=== PATIENT | female | born 1940 | race Caucasian/White ===

== ENCOUNTER 2017-02-23 18:43 | Inpatient (IN) ==
[2017-02-23 19:12] LABS: MANUAL DIFF NEEDED? NO
[2017-02-23 19:19] LABS: BASO% 0.4 % (0.0-0.8); EOS# 0.22 X1000 (0.0-0.7); EOS% 3.1 % (0.0-10.0); HEMATOCRIT 22.9 % (37.0-47.0); HEMOGLOBIN 6.9 g/dL (12.0-16.0); IMM GRAN# 0.06 X1000 (0.0-0.04); IMM GRAN% 0.8 % (0.0-0.5); LYMPH# 1.07 X1000 (1.2-3.4); MCH 25.4 PG (27-31); MCHC 30.1 g/dL (33-37); MCV 84.2 FL (81-99); MONO# 0.39 X1000 (0.11-0.59); MONO% 5.5 % (1.7-9.3); MPV 9.1 FL (7.4-10.4); NEUT% 75.2 % (42.2-75.2); PLT 334 X1000 (130-400); RBC 2.72 XMIL (4.2-5.4)
[2017-02-23 19:35] LABS: ALBUMIN 3.6 g/dL (3.5-5.0); CALCIUM 9.4 mg/dL (8.8-10.2); POTASSIUM 4.7 mmol/L (3.5-5.1); TOTAL BILIRUBIN 0.18 mg/dL (0.20-1.00); TOTAL PROTEIN 6.6 g/dL (6.3-8.3)
--- NOTE | 2017-02-23 21:39 | PROVIDER DOCUMENTATION ---
This chart was entered by Kat Canales Scribe, acting as scribe for Trevor Encarnacion PA. HPI-General Adult - General Chief Complaint: GI Bleed Stated Complaint: ANEMIA Time Seen by Provider: 02/23/17 21:10 Source: family Allergies/Adverse Reactions: Patient Allergies Allergy/AdvReac Type Severity Reaction Status Date / Time Penicillins Allergy RASH Verified 02/23/17 18:56 Sulfa (Sulfonamide Allergy RASH Verified 02/23/17 18:56 Antibiotics) Home Medications: Home Medication List Medication Instructions Recorded Confirmed Last Taken Type Alendronate [Fosamax] 1 tab PO DAILY 02/23/17 02/23/17 02/23/17 History Alendronate [Fosamax] 1 tab PO DAILY 02/23/17 02/23/17 02/23/17 History Cephalexin [Cephalexin] 1 tab PO DAILY 02/23/17 02/23/17 02/23/17 History Cetirizine HCl [Cetirizine HCl] 1 tab PO DAILY 02/23/17 02/23/17 02/23/17 History Dexlansoprazole [Dexilant] 1 tab PO DAILY 02/23/17 02/23/17 02/23/17 History Diclofenac Sodium 1 applic ORDERED PRN PRN 02/23/17 02/23/17 02/23/17 History Dronedarone HCl [Multaq] 1 tab PO DAILY 02/23/17 02/23/17 02/23/17 History Furosemide [Furosemide] 1 tab PO DAILY 02/23/17 02/23/17 02/23/17 History Furosemide [Furosemide] 1 tab PO DAILY 02/23/17 02/23/17 02/23/17 History Glimepiride [Glimepiride] 1 tab PO DAILY 02/23/17 02/23/17 02/23/17 History Insulin Glargine [Lantus] 45 units SQ DAILY 02/23/17 02/23/17 02/23/17 History Ondansetron Odt [Zofran Odt] 1 tab PO PRN PRN 02/23/17 02/23/17 02/23/17 History Sitagliptin [Januvia] 1 tab PO DAILY 02/23/17 02/23/17 02/23/17 History Valsartan [Valsartan] 1 tab PO DAILY 02/23/17 02/23/17 02/23/17 History - History of Present Illness -Gen Adult Nature of Presenting Problems: Family states that pt was seen by PCP today and sent to have labs and imaging done. Pt was called at home and told to come to the ED due to blood being low. Pt states that she had some blood in stool 2 weeks ago but it resolved and has not noticed any since. Pt does have a history of a stomach ulcer years ago. Pt denies pain, bleeding, nausea, and vomiting. Is on two anticoagulants Location of Pain/Injury: reports: none Pain Radiation: reports: no radiation Quality of Pain: reports: none Severity: reports: mild Onset/Duration: reports: this afternoon Timing: reports: still present Context/Activities at Onset: reports: none Modifying Factors: improves with: nothing Associated Symptoms: reports: denies symptoms Similar Symptoms Previously?: No Recently seen or treated by another doctor?: Yes (Saw PCM today) Review of Systems - Adult - REVIEW OF SYSTEMS - ADULT Constitutional: denies: chills, fever Eyes: reports: no symptoms reported Ears, Nose, Mouth & Throat: reports: no symptoms reported Cardiovascular: reports: no symptoms reported Respiratory: denies: cough, shortness of breath Gastrointestinal: denies: abdominal pain, nausea, rectal bleeding, vomiting Genitourinary: denies: dysuria, hematuria Musculoskeletal: denies: muscle aches, muscle weakness Integumentary: denies: skin sores/ulcer, skin thickening Neurological: reports: no symptoms reported Psychiatric: reports: no symptoms reported Endocrine: reports: no symptoms reported Hematologic/Lymphatic: reports: no symptoms reported Allergic/Immunologic: reports: no symptoms reported All Other Systems: Reviewed and Negative Past History - Adult - PAST MEDICAL HISTORY-ADULT Review of Records: reports: Nursing Assessment Review, Medications Reviewed Major Childhood Illnesses: reports: denies history Gastrointestinal: reports: ulcer - IMMUNIZATION STATUS Childhood Immunizations: See Nurse Assessment Flu Vaccine: See Nurse Assessment Physical Exam-General - PHYSICAL EXAM-ADULT Initial Vital Signs Reviewed: Yes - CONSTITUTIONAL General Appearance: appears well, alert, no apparent distress, obese - EYES Eyes: PERRL/EOMI, pale conjunctivae - HEAD, EARS, NOSE, MOUTH & THROAT HENMT: normocephalic/atraumatic, moist mucous membranes - NECK Neck: full range of motion, supple, normal inspection - RESPIRATORY Respiratory: chest non-tender, lungs clear, normal breath sounds. negative: crackles, rales, rhonchi, stridor, wheezing - CARDIOVASCULAR Cardiovascular: normal peripheral pulses, regular rate, rhythm, no edema, no gallop, no JVD, no murmur, tachycardia - GASTROINTESTINAL (ABDOMEN) Abdominal Exam: normal bowel sounds, non tender, soft. negative: distended, guarding, rigid, rebound, tenderness - MUSCULOSKELETAL Back Exam: no CVA tenderness Extremity: no pedal edema Peripheral Pulses: radial (R): 2+, radial (L): 2+, dorsalis-pedis (R): 2+, dorsalis-pedis (L): 2+ - SKIN Integumentary: normal color, normal turgor, warm/dry - NEUROLOGIC Neurologic: motion graphics designer II-XII nml as tested, grossly normal - PSYCHIATRIC Psych/Mental Status: normal mood/affect, normal thought content, normal thought process, oriented x 3 Progress - PLAN OF CARE/RESULTS Progress/Plan/Lab Results: Vital Signs - 8 hr 02/23/17 18:54 Temperature 99.2 F Pulse Rate 101 H Respiratory Rate 18 Blood Pressure 182/65 O2 Sat by Pulse Oximetry 97 Laboratory Results - last 24 hr 02/23/17 02/23/17 02/23/17 19:05 19:05 19:05 WBC 7.13 RBC 2.72 L Hgb 6.9 L Hct 22.9 L MCV 84.2 MCH 25.4 L MCHC 30.1 L RDW Std Deviation 14.2 Plt Count 334 MPV 9.1 Immature Gran % (Auto) 0.8 H Neut % (Auto) 75.2 Lymph % (Auto) 15.0 L [place] % (Auto) 5.5 Eos % (Auto) 3.1 Baso % (Auto) 0.4 Immature Gran # (Auto) 0.06 H Neut # (Auto) 5.36 Lymph # (Auto) 1.07 L [place] # (Auto) 0.39 Eos # (Auto) 0.22 Baso # (Auto) 0.03 Sodium 139 Potassium 4.7 Chloride 101 Carbon Dioxide 25 Anion Gap 13 BUN 15 Creatinine 1.6 H Estimated GFR/1.73 m2 31 BUN/Creatinine Ratio 9 Glucose 163 H Calculated Osmolality 282 Calcium 9.4 Total Bilirubin 0.18 L AST 13 ALT 10 Alkaline Phosphatase 52 Total Protein 6.6 Albumin 3.6 Globulin 3.0 Albumin/Globulin Ratio 1.2 Blood Type O NEGATIVE Antibody Screen NEGATIVE Orders Category Date Time Status CBC WITH DIFF [HEME] Stat Lab 02/23/17 19:05 Completed COMPREHENSIVE METABOLIC PANEL [CHEM] Stat Lab 02/23/17 19:05 Completed OCCULT BLOOD SCREENING [STOOL] Stat Lab 02/23/17 21:27 Ordered TYPE & SCREEN [BBK] Stat Lab 02/23/17 19:05 Completed Result Diagrams: 02/24/17 09:10 02/24/17 03:13 - REASSESSMENT Reassessment #1 Time Reassessed: 23:10 (Discussed with Dr. Kendall, pt has + occult blood, anemia. Tranfused 1 unit in ED, recommends admission. Pt is asxs at this time, states she feels fine. Hasn't noticed any blood in stool in the last two weeks, no excessive bruising. ) - CONSULTS/PCP/HOSPITALIST Notification #1 *Consult/PCP/Hospitalist*: Dr. Garrido, Hospitalist Time Discussed: 00:04 (Will come see pt in the ED. ) Consult Disposition: Will see in ED, Admit Departure - Departure Date of Disposition Decision: 02/24/17 Time of Disposition Decision: 00:04 DIAGNOSIS: Occult blood positive stool Anemia Qualifiers: Anemia type: unspecified type Qualified Code(s): D64.9 - Anemia, unspecified Disposition: ADMITTED INPATIENT 09 Certified Medical Emergency: Emergent Condition: Stable - Critical Care Note This patient required my direct & personal management of CC.: No Attestation - Physician/ ARMANDO Attestation Patient care was provided by Advanced Practice Provider:: Yes Advanced Practice Provider:: Trevor Encarnacion Advanced Practice Provider documentation review:: The Mid-level provider documentation, treatment plan and medical decision making was reviewed by the physician who agrees with all treatment and medical decision making by the MLP. This chart was documented by the indicated scribe, (Kat Canales Scribe) and accurately reflects the services I performed and decisions made by me, Trevor Encarnacion PA, as attested by the provider's signature.
[2017-02-23 22:29] LABS: IRON SATURATION 7 %; TIBC 483 ug/dL; TOTAL IRON 33 ug/dL (49-151); UNBOUND IRON 450 ug/dL (112-346)
--- NOTE | 2017-02-23 22:35 | Diag Imaging Result Doc PS360 ---
EXAM: ABDOMEN/PELVIS W/O CONTRAST HISTORY: Low H/H, hx GI bleed FINDINGS: There is a small right-sided pleural effusion measuring 2.1 cm posteriorly and inferiorly in the midline. There is a calcified granuloma in the left lower lobe. The gallbladder is contracted. No calcified gallstone. Normal noncontrasted liver and spleen. There is a small duodenal diverticulum. Normal spleen and adrenal glands. No renal stones. No hydronephrosis. No aortic aneurysm. Moderate atherosclerosis. No bowel obstruction. Normal appendix. No abscess. There are scattered diverticula in the sigmoid colon. The uterus is been removed. Urinary bladder is distended and appears normal. There is a fat filled left inguinal hernia. IMPRESSION: 1.Duodenal diverticulum 2.Diverticulosis 3.Hysterectomy 4.Fat filled left inguinal hernia 5.Small right-sided pleural effusion Electronically signed by Clinton Calvillo 02/23/2017 10:32 PM
[2017-02-24] MEDS ORDERED: NS 500 ML ONE (00:08)
--- NOTE | 2017-02-24 01:26 | HISTORY AND PHYSICAL ---
CHIEF COMPLAINT: Patient sent by her primary care for generalized weakness. HISTORY OF PRESENT ILLNESS: This is a 77-year-old female, with a past medical history of atrial fibrillation on anticoagulation, diabetes, and hyperlipidemia, who was sent by her primary care physician because of generalized weakness. According to the patient, 2-3 weeks ago, she noticed rectal bleeding that lasted for approximately 2-3 days. She did not seek any medical attention for personal reasons. Today, she went to see her primary care, and she reported that she was feeling very weak, with generalized lethargy. She denies any vomiting blood, or black stools. Here upon ER evaluation, she was found to have a hemoglobin 6.9, with creatinine 1.6, so we were called in for admission. PAST MEDICAL HISTORY: 1. Atrial fibrillation. On Pradaxa. 2. Diabetes mellitus type 2. 3. Hypercholesterolemia. 4. Gastric ulcers many years ago. PAST SURGICAL HISTORY: Hysterectomy. ALLERGIES: Patient is allergic to penicillin and sulfa. REVIEW OF SYSTEMS: Eleven systems were reviewed, and all symptoms are related to H P. FAMILY HISTORY: Noncontributory. PHYSICAL EXAMINATION: VITAL SIGNS: Temperature 99.2 degrees, heart rate 90, respiratory rate 18, blood pressure 144/66. Oxygen saturation 92% on 2 L nasal cannula. GENERAL: This is a 77-year-old female lying in bed, in no acute distress. HEENT: Head is normocephalic, atraumatic. Anicteric sclerae and pale conjunctivae. Mucous membranes moist. NECK: Supple. No JVD noted. No carotid bruits. No lymphadenopathy. No thyromegaly. CARDIOVASCULAR: S1, S2 heard. Irregularly irregular. No murmurs, gallops, or rubs. RESPIRATORY: Clear bilaterally to auscultation. No work of breathing or using accessory muscles. ABDOMEN: Soft, nontender to palpation. Bowel sounds present. No organomegaly. EXTREMITIES: No clubbing, cyanosis, or edema. Peripheral pulses present in both legs. NEUROLOGIC: The patient is alert, able to move her extremities. Cranial nerves 2-12 grossly normal. LABORATORY DATA: Hemoglobin 6.9, with creatinine 1.6, iron 33, glucose 163. ASSESSMENT AND PLAN: 1. Anemia, multifactorial, blood loss and iron deficiency anemia. 2. Chronic atrial fibrillation, on anticoagulation. 3. Diabetes mellitus type 2. 4. Acute kidney injury. 5. Hypercholesterolemia. PLAN: 1. The patient is going to be admitted to the hospital because of this episode of bleeding. I think this low hemoglobin comes from the last time that this patient had this rectal bleeding. In the ER, she is going to be transfused 2 units of blood. We are going to consult GI for further evaluation of the GI bleeding. 2. Also, the labs shows acute kidney injury, so we are going to start this patient on IV fluids as well. We will check a BMP and CBC daily. 3. For chronic atrial fibrillation, at this time of course, because of this bleeding, we are going to hold on both anticoagulants. Will consider to restart them after this bleeding has resolved completely. 4. For diabetes, we are going to continue basically with long-acting insulin and sliding scale insulin as well. 5. For cholesterol, we will continue home medications. cc: Anselmo Puente MD
[2017-02-24] MEDS: NS 1,000 ML IV SCH ×2 (02:52→13:30)
[2017-02-24] MEDS: PROTONIX IV SCH ×2 (02:52→15:05)
[2017-02-24 03:40] LABS: HEMOGLOBIN A1C 6.2 % (4.8-6.0)
[2017-02-24] MEDS: LANTUS SUBQ SCH (07:15)
[2017-02-24] MEDS ORDERED: TYLENOL PO PRN (07:30)
[2017-02-24 08:21] LABS: ALBUMIN 3.4 g/dL (3.5-5.0); CALCIUM 9.1 mg/dL (8.8-10.2); POTASSIUM 4.4 mmol/L (3.5-5.1); TOTAL BILIRUBIN 0.3 mg/dL (0.20-1.00); TOTAL PROTEIN 5.9 g/dL (6.3-8.3)
[2017-02-24] MEDS: DIOVAN PO SCH (08:30)
[2017-02-24] MEDS: MULTAQ PO SCH (08:30)
[2017-02-24] MEDS: LASIX PO SCH (08:30)
[2017-02-24] MEDS: JANUVIA PO SCH (08:40)
[2017-02-24 09:36] LABS: HEMATOCRIT 26.1 % (37.0-47.0); MCH 26.1 PG (27-31); MCHC 30.7 g/dL (33-37); MCV 85.3 FL (81-99); MPV 9.1 FL (7.4-10.4); RBC 3.06 XMIL (4.2-5.4)
[2017-02-24] MEDS: HUMULIN R SUBQ SCH ×2 (11:33→18:39)
[2017-02-24] MEDS ORDERED: GOLYTELY PO ONE (14:00)
[2017-02-24] MEDS: SODIUM CHLORIDE 0.9% INJ SCH (15:05)
--- NOTE | 2017-02-25 02:27 | CONSULTATION ---
DATE OF CONSULTATION: 02/24/2017 REFERRING PHYSICIAN: Alia Reyes M.D. PRIMARY CARE PROVIDER: Mariah Mcguire M.D. INDICATION FOR CONSULTATION: Rectal bleeding. HISTORY OF PRESENT ILLNESS: The patient is a 77-year-old white female, who presented to her primary care physician for evaluation of generalized weakness. The patient has a history of atrial fibrillation, is currently on Pradaxa therapy. According to her daughter , who is at the bedside, she has had intermittent rectal bleeding, with blood mixed in the stool for the last 3 weeks. In the past, she has had a bleeding ulcer, and a "twisted colon" that was evaluated by Dr. Mendoza in [place]. When she presented to Dr. Mcguire, she was found to have a hemoglobin of 6.9, with a creatinine of 1.7. She was sent to the emergency room here at [facility] for further evaluation. We are asked to participate in her care. PAST MEDICAL HISTORY: 1. Atrial fibrillation, currently on Pradaxa. 2. Diabetes mellitus 2. 3. Hyperlipidemia. 4. History of gastric ulcers more than 20 years ago. 5. Creatinine 1.6 on admission. 6. Iron deficiency anemia on admission. PAST SURGICAL HISTORY: Hysterectomy. MEDICATION ALLERGIES: 1. Penicillin. 2. Sulfa. HOME MEDICATIONS: 1. Pradaxa, with the last dose taken 02/23/2017. 2. Cetirizine. 3. Fosamax. 4. Dexilant. 5. Diclofenac. 6. Januvia. 7. Glimepiride. 8. Lasix. 9. Losartan. 10. Zofran. 11. Lantus. 12. Multaq. 13. Cephalexin. REVIEW OF SYSTEMS: Remarkable for left lower quadrant pain that has improved since admission. She denies nausea with vomiting at this time. However, she had mild nausea at home, but no vomiting or melena. FAMILY HISTORY: Noncontributory, in light of the acute bleeding. PHYSICAL EXAMINATION: General: On exam, she is in no acute distress. Vital Signs: Her blood pressure is 149/59, pulse of 88, respirations 17, temperature of 98.6 degrees. HEENT: Unremarkable, except for pale mucosa. Pulmonary: Lungs are clear to auscultation, with normal expiratory effort. Cardiovascular: Reveals an irregularly irregular rhythm, with no gallops or rubs. Abdominal: Reveals normoactive bowel sounds. The abdomen is soft and nontender, with no rebound or guarding. She has mild central adiposity. Extremities: Bilaterally are negative for cyanosis, clubbing, or edema. Neurologic: She is alert and oriented x3, with appropriate mood, affect, and memory. OBJECTIVE DATA: Remarkable for hemoglobin of 6.9, with hematocrit of 22.9, and a white count of 7.13 on admission. She had 334,000 platelets. Post transfusion, her hemoglobin is 8.0, with hematocrit of 26.1, and a white count of 6.02, and 285,000 platelets. Today, her sodium is 141, potassium 4.4, chloride 104, CO2 of 25, BUN 13, creatinine 1.3, with a glucose of 61. Calcium is 9.1, total bilirubin 0.3, AST 14, ALT 8, alkaline phosphatase 43, total protein 5.9, and albumin 3.4. Her iron is 33, with a ferritin of 21. IMPRESSION: 1. Gastrointestinal bleed, most likely colonic in origin. However, she does have a history of peptic ulcer disease. 2. Iron deficiency anemia. 3. History of a "twisted colon." RECOMMENDATION: 1. I agree with holding the patient's anticoagulation while she is an inpatient. 2. I agree with Protonix 40 mg IV q.12 hours. 3. I will plan to perform an EGD and colonoscopy approximately 48 hours to 72 hours after her last dose. We will place the patient on the schedule for an EGD and colonoscopy. For Wednesday, in the absence of active bleeding. This will allow her Pradaxa to dissipate from her system, and improve the safety of her procedure. Please add SCD's to reduce her DVT risks. 4. Consent was discussed with the patient and her daughter who is at bedside. Questions were answered. They agree to proceed with the endoscopy. 5. Additional recommendations to follow based on her clinical course. cc: MD Alia Patton MD Faye Wilson, MD MTDD
[2017-02-25] MEDS: HUMULIN R SUBQ SCH ×4 (04:40→18:25)
[2017-02-25] MEDS: PROTONIX IV SCH ×2 (04:41→18:52)
[2017-02-25 07:03] LABS: MANUAL DIFF NEEDED? NO
[2017-02-25 07:15] LABS: BASO% 0.5 % (0.0-0.8); EOS# 0.27 X1000 (0.0-0.7); EOS% 4.7 % (0.0-10.0); HEMATOCRIT 26.8 % (37.0-47.0); HEMOGLOBIN 8.1 g/dL (12.0-16.0); IMM GRAN# 0.04 X1000 (0.0-0.04); IMM GRAN% 0.7 % (0.0-0.5); LYMPH# 0.77 X1000 (1.2-3.4); LYMPH% 13.3 % (20.5-51.1); MCH 25.2 PG (27-31); MCHC 30.2 g/dL (33-37); MCV 83.2 FL (81-99); MONO# 0.39 X1000 (0.11-0.59); MONO% 6.8 % (1.7-9.3); MPV 9.6 FL (7.4-10.4); PLT 311 X1000 (130-400); RBC 3.22 XMIL (4.2-5.4)
[2017-02-25 07:41] LABS: CALCIUM 8.9 mg/dL (8.8-10.2); POTASSIUM 4.6 mmol/L (3.5-5.1)
[2017-02-25] MEDS ORDERED: INSULIN PEN NEEDLES ONE (08:27)
[2017-02-25] MEDS: LASIX PO SCH (09:22)
[2017-02-25] MEDS: DIOVAN PO SCH (09:22)
[2017-02-25] MEDS: JANUVIA PO SCH (09:22)
[2017-02-25] MEDS: LANTUS SUBQ SCH (09:23)
[2017-02-25] MEDS: MULTAQ PO SCH (09:23)
--- NOTE | 2017-02-25 15:57 | PROGRESS NOTE ---
DATE: 02/25/2017 SUBJECTIVE: The patient is resting comfortably in bed. She was able to tolerate a liquid diet. She has no complaints. OBJECTIVE: Vital Signs: Temperature 98 degrees, blood pressure 150/65, heart rate 92, respirations 18, O2 saturation 95% on room air. General: This is an elderly female, lying in bed, in no acute distress. Head: Normocephalic, atraumatic. Heart: S1, S2. Normal. Regular rate and rhythm. Lungs: Clear to auscultation bilaterally. No wheezes, no rales. No rhonchi. Abdomen: Positive bowel sounds. Soft, nontender, nondistended. Extremities: No edema. No cyanosis. No calf tenderness. Neurologic: The patient is alert and oriented x3.. LABS: White blood cell count 5.7, hemoglobin 8.1, hematocrit 26, platelets 311,000. Sodium 141, potassium 4.6, chloride 104, CO2 22, BUN 17, creatinine 1.3. ASSESSMENT AND PLAN: 1. Gastrointestinal bleed. The patient is scheduled to undergo endoscopy tomorrow. We will follow up the results closely. 2. Anemia of acute blood loss. The patient's hemoglobin and hematocrit remain stable. Will transfuse p.r.n. 3. Atrial fibrillation. The patient is currently rate controlled. The Pradaxa is currently on hold due to the GI bleed. 4. Acute kidney injury. Improving. Continue on IV fluid hydration. 5. Morbid obesity. Aware. 6. Hypertension. Continue on the current antihypertensive regimen. 7. Diabetes mellitus type 2. We will cover the patient with sliding scale insulin. cc: Alia Reyes MD
[2017-02-25] MEDS ORDERED: GOLYTELY PO ONE (19:48)
--- NOTE | 2017-02-25 20:43 | PROGRESS NOTE ---
DATE: 02/25/2017 SUBJECTIVE: The patient is awaiting her bowel prep. Unfortunately, she did not receive her GoLYTELY last night as ordered. She reports bright red blood after defecation today. She is scheduled for an EGD colon tomorrow to determine the source of bleeding. Her GoLYTELY prep has been reordered. The family is at bedside and denies questions. cc: MD Alia Patton MD Faye Wilson, MD
[2017-02-25] MEDS: ZOFRAN IV PRN (22:24)
[2017-02-26] MEDS: HUMULIN R SUBQ SCH ×5 (00:38→20:07)
[2017-02-26] MEDS: NS 1,000 ML IV SCH ×5 (00:38→13:48)
[2017-02-26] MEDS: PROTONIX IV SCH ×2 (05:33→18:21)
[2017-02-26] MEDS: SODIUM CHLORIDE 0.9% INJ SCH ×2 (05:33→18:21)
[2017-02-26] MEDS ORDERED: MIRALAX PO ONE ×2 (06:35→06:45)
[2017-02-26] MEDS ORDERED: DULCOLAX PO ONE (06:35)
[2017-02-26 08:24] LABS: BASO% 0.1 % (0.0-0.8); EOS# 0.08 X1000 (0.0-0.7); EOS% 1.1 % (0.0-10.0); HEMATOCRIT 26.5 % (37.0-47.0); HEMOGLOBIN 8.1 g/dL (12.0-16.0); IMM GRAN# 0.04 X1000 (0.0-0.04); IMM GRAN% 0.5 % (0.0-0.5); LYMPH# 0.49 X1000 (1.2-3.4); LYMPH% 6.4 % (20.5-51.1); MANUAL DIFF NEEDED? YES; MCH 25.2 PG (27-31); MCHC 30.6 g/dL (33-37); MCV 82.6 FL (81-99); MONO# 0.33 X1000 (0.11-0.59); MONO% 4.3 % (1.7-9.3); MPV 9.5 FL (7.4-10.4); NEUT% 87.6 % (42.2-75.2); PLT 287 X1000 (130-400); RBC 3.21 XMIL (4.2-5.4)
[2017-02-26 08:36] LABS: ALBUMIN 3.4 g/dL (3.5-5.0); CALCIUM 8.8 mg/dL (8.8-10.2); POTASSIUM 4.1 mmol/L (3.5-5.1)
[2017-02-26 08:39] LABS: LYMPHS 6 % (21-51); MONO 8 % (1-9)
[2017-02-26] MEDS: ZOFRAN IV PRN (11:50)
[2017-02-26] MEDS: DIOVAN PO SCH (13:47)
[2017-02-26] MEDS: LASIX PO SCH (13:48)
[2017-02-26] MEDS: LANTUS SUBQ SCH (13:48)
[2017-02-26] MEDS: MULTAQ PO SCH (13:48)
[2017-02-26] MEDS: JANUVIA PO SCH (13:49)
--- NOTE | 2017-02-26 14:59 | PROGRESS NOTE ---
DATE: 02/26/2017 SUBJECTIVE: The patient is resting comfortably in bed. She did not tolerate the GoLYTELY prep overnight due to nausea. OBJECTIVE: Vital Signs: Temperature 98 degrees, blood pressure 140/59, heart rate 57, respirations 17, O2 saturations 100% on room air. General: This is an elderly female, lying in bed, in no acute distress. Head: Normocephalic, atraumatic. Heart: S1, S2. Normal. Regular rate and rhythm. Lungs: Clear to auscultation bilaterally. No wheezes, no rales. No rhonchi. Abdomen: Positive bowel sounds. Soft, nontender, nondistended. Extremities: No edema. No cyanosis. No calf tenderness. Neurologic: The patient is alert and oriented x3. LABORATORY DATA: White blood cell count 7.6, hemoglobin 8.1, hematocrit 26, platelets 287,000. Sodium 139, potassium 4.1, chloride 101, CO2 26, BUN 10, creatinine 1, glucose 182. ASSESSMENT AND PLAN: 1. Gastrointestinal bleed. Currently being prepped to undergo endoscopy. The hemoglobin and hematocrit remain stable. 2. Anemia of acute blood loss. Stable. 3. Atrial fibrillation. Rate controlled. Continue to monitor off of Pradaxa. 4. Morbid obesity. Aware. 5. Hypertension. Controlled. 6. Acute kidney injury. Improved. 7. Diabetes mellitus type 2. Continue on sliding scale insulin. cc: Alia Reyes MD MTDD
[2017-02-26] MEDS ORDERED: DIPRIVAN 1% ONE (16:57)
[2017-02-26] MEDS ORDERED: XYLOCAINE-MPF 2% ONE (17:06)
[2017-02-26] MEDS ORDERED: LR 1,000 ML ONE (17:06)
--- NOTE | 2017-02-26 22:42 | OPERATIVE NOTE ---
PROCEDURE DATE: 02/26/2017 REFERRING PHYSICIAN: Alia Reyes M.D. PRIMARY CARE PHYSICIAN: Mariah Mcguire M.D. INDICATION FOR PROCEDURE: 1. Iron deficiency anemia. 2. Peptic ulcer disease. 3. Rectal bleeding. PROCEDURE PERFORMED: Esophagogastroduodenoscopy. CONSENT: Informed consent was discussed with the patient and her daughter prior to the procedure. The risks, benefits, and alternatives were discussed. MEDICATION: The patient received monitored anesthesia care. PERFORMING PHYSICIAN: Adri Lozano M.D. ASSISTANTS: 1. ST. Mao 2. Svetlana Eid RN. 3. Nancy Brown CRNA. 4. Josesito Pemberton M.D. (anesthesia). COMPLICATIONS: There were no complications. ESTIMATED BLOOD LOSS: None. SPECIMENS REMOVED: None. FINDINGS: After sedation was achieved, the upper endoscope was inserted to the 2nd portion of the duodenum. The hypopharynx appeared endoscopically normal. The tubular esophagus was normal to the distal esophagus. There was a Schatzki ring at the GE junction which was measured at 40 cm from the incisors. There was no evidence of esophageal varices or Foreman esophagus. The lumen was patent and the scope passed easily into the hiatal hernia which spanned 40- 44 cm from the incisors. In the gastric lumen, there was mild erosive gastritis but no ulcers or masses seen. On retroflexed view, the fundus appeared grossly normal. On forward view, the pylorus was patent. There was mild duodenitis limited to the bulb. The second portion of the duodenum appeared grossly normal with no masses or bleeding lesions. After the exam was complete , the lumen was decompressed and the scope was removed without incident. IMPRESSION: 1. Schatzki ring, nonobstructive. 2. Hiatal hernia. 3. Mild erosive gastritis. 4. Mild duodenitis. 5. No source found to account for the anemia or the rectal bleeding. RECOMMENDATION: 1. Continue Protonix 40 mg IV q.12 hours. 2. Will proceed with a colonoscopy as previously scheduled. 3. Additional recommendations to follow based on the colonoscopy findings. cc: Alia Reyes MD MTDD
--- NOTE | 2017-02-26 22:48 | OPERATIVE NOTE ---
PROCEDURE DATE: 02/26/2017 REFERRING PHYSICIAN: Alia Reyes M.D. PRIMARY CARE PROVIDER: Mariah Mcguire M.D. INDICATION FOR PROCEDURE: 1. Rectal bleeding. 2. Iron deficiency anemia. PROCEDURE PERFORMED: Colonoscopy, incomplete. CONSENT: Informed consent was obtained from the patient prior to the procedure. The risks, benefits, and alternatives were discussed. MEDICATION: The patient received monitored anesthesia care. Informed consent was obtained from the patient and her daughter prior to the procedure. The risks, benefits, and alternatives were discussed. COMPLICATIONS: There were no complications. ESTIMATED BLOOD LOSS: None. SPECIMENS REMOVED: None. PREP QUALITY: Inadequate. CECAL INTUBATION TIME: Not achieved due to poor bowel prep. FINDINGS: After the EGD was performed, the patient was repositioned. The pediatric colonoscope was inserted to 35 cm. At 35 cm, there was thick fecal debris that obscured and obstructed the scope. After we were able to clean the scope, we visualized multiple sessile colon polyps between 5 and 10 mm between 35 cm and the rectum. There was also extensive diverticulosis. In the upper rectum, there were grade 3 internal hemorrhoids. On retroflexed view, there were large, inflamed external hemorrhoids with no active bleeding. The lumen was decompressed and the scope was removed without incident. IMPRESSION: 1. Incomplete exam secondary to poor bowel prep. 2. Multiple sessile colon polyps. 3. Diverticulosis. 4. Grade 3 internal hemorrhoids. 5. Large external hemorrhoids. RECOMMENDATION: 1. Will schedule the patient for a repeat colonoscopy after an extended bowel prep over the weekend. She had nausea and vomiting with GoLYTELY and MiraLAX. We will plan a 2 day senna prep. 2. She may consume clear liquids over the weekend. 3. Additional recommendations will follow based on her clinical course. cc: Mariah Mcguire MD [facility]
[2017-02-27] MEDS: NS 1,000 ML IV SCH (06:01)
[2017-02-27] MEDS: HUMULIN R SUBQ SCH ×4 (06:01→21:06)
[2017-02-27] MEDS: PROTONIX IV SCH ×2 (06:40→18:44)
[2017-02-27 07:39] LABS: MANUAL DIFF NEEDED? NO
[2017-02-27 07:48] LABS: BASO% 0.2 % (0.0-0.8); EOS# 0.18 X1000 (0.0-0.7); EOS% 3.4 % (0.0-10.0); HEMATOCRIT 24.9 % (37.0-47.0); HEMOGLOBIN 7.3 g/dL (12.0-16.0); IMM GRAN# 0.03 X1000 (0.0-0.04); IMM GRAN% 0.6 % (0.0-0.5); LYMPH# 0.76 X1000 (1.2-3.4); LYMPH% 14.3 % (20.5-51.1); MCH 24.5 PG (27-31); MCHC 29.3 g/dL (33-37); MCV 83.6 FL (81-99); MONO# 0.34 X1000 (0.11-0.59); MONO% 6.4 % (1.7-9.3); NEUT% 75.1 % (42.2-75.2); PLT 275 X1000 (130-400); RBC 2.98 XMIL (4.2-5.4)
[2017-02-27] MEDS: JANUVIA PO SCH (08:15)
[2017-02-27] MEDS: PERICOLACE PO SCH ×2 (08:15→21:06)
[2017-02-27] MEDS: LASIX PO SCH (08:17)
[2017-02-27] MEDS: LANTUS SUBQ SCH (08:17)
[2017-02-27] MEDS: MULTAQ PO SCH (08:17)
[2017-02-27] MEDS: DULCOLAX PO SCH (08:17)
[2017-02-27] MEDS: DIOVAN PO SCH (08:17)
[2017-02-27 08:19] LABS: ALBUMIN 3.1 g/dL (3.5-5.0); CALCIUM 8.6 mg/dL (8.8-10.2); POTASSIUM 3.9 mmol/L (3.5-5.1)
[2017-02-27] MEDS: NEUTRA-PHOS PO SCH ×2 (11:41→21:06)
--- NOTE | 2017-02-27 16:21 | PROGRESS NOTE ---
DATE: 02/27/2017 SUBJECTIVE: The patient is resting comfortably in bed. She is currently undergoing a bowel prep in anticipation of endoscopy. OBJECTIVE: Vital Signs: Temperature 98.5 degrees, blood pressure 177/65, heart rate 80, respirations 18, O2 saturation 94% on 2L nasal cannula. General: This is an elderly female, resting comfortably in bed in no acute distress. HEENT: Head normocephalic, atraumatic. Heart: S1 and S2 normal. Regular rate and rhythm. Lungs: Clear to auscultation bilaterally. No wheezing. No rales. No rhonchi. Abdomen: Positive bowel sounds. Soft, obese, nontender, nondistended. Extremities: No edema. No cyanosis. No calf tenderness. Neurologic: The patient is alert oriented x3. LABORATORY: White blood cell count 5.3, hemoglobin 7.3, hematocrit 25, platelets 275,000. Sodium 142, potassium 3.9, chloride 107, CO2 of 26, BUN 10, creatinine 1, glucose 122, phosphorus 2.4, albumin 3.1. ASSESSMENT AND PLAN: 1. Gastrointestinal bleed. The patient's colonoscopy was unable to be completed due to poor prep. The patient is currently undergoing a repeat bowel prep and then another endoscopy will be attempted once the patient has been cleaned out. Continue to monitor this closely. 2. Anemia of acute blood loss. The patient's hemoglobin and hematocrit dropped overnight. We will transfuse 1 unit of packed red blood cells today. 3. Multiple colonic polyps. Aware. 4. Extensive internal and external hemorrhoids. Aware. 5. Hypertension. Will add Coreg to the patient's antihypertensive therapy. 6. Diabetes mellitus, type 2. Continue on Lantus plus sliding scale insulin. 7. Gastrointestinal prophylaxis. Continue on IV Protonix. 8. Deep vein thrombosis prophylaxis. Continue with SCDs. cc: Alia Reyes MD
[2017-02-27] MEDS: SODIUM CHLORIDE 0.9% INJ SCH (18:44)
[2017-02-27] MEDS: COREG PO SCH (21:09)
[2017-02-28] MEDS: HUMULIN R SUBQ SCH ×5 (00:43→22:30)
[2017-02-28] MEDS: PROTONIX IV SCH ×2 (05:45→17:44)
[2017-02-28 06:58] LABS: HEMATOCRIT 27.6 % (37.0-47.0); HEMOGLOBIN 8.4 g/dL (12.0-16.0); MCH 25.9 PG (27-31); MCHC 30.4 g/dL (33-37); MCV 85.2 FL (81-99); MPV 9.9 FL (7.4-10.4); RBC 3.24 XMIL (4.2-5.4)
[2017-02-28 07:32] LABS: AGAP 11; ALBUMIN 3.1 g/dL (3.5-5.0); BUN 10 mg/dL (8-22); CALCIUM 8.6 mg/dL (8.8-10.2); CHLORIDE 105 mmol/L (98-107); COSMO 282; POTASSIUM 3.4 mmol/L (3.5-5.1); SODIUM 142 mmol/L (136-145); TCO2 26 mmol/L (25-35)
[2017-02-28] MEDS ORDERED: KLOR-CON PO ONE (07:47)
[2017-02-28] MEDS: LASIX PO SCH (10:01)
[2017-02-28] MEDS: DIOVAN PO SCH (10:01)
[2017-02-28] MEDS: JANUVIA PO SCH (10:01)
[2017-02-28] MEDS: NEUTRA-PHOS PO SCH ×3 (10:01→22:30)
[2017-02-28] MEDS: COREG PO SCH ×3 (10:02→22:29)
[2017-02-28] MEDS: MULTAQ PO SCH (10:02)
[2017-02-28] MEDS: DULCOLAX PO SCH (10:02)
[2017-02-28] MEDS: PERICOLACE PO SCH ×3 (10:02→22:29)
[2017-02-28] MEDS: LANTUS SUBQ SCH (10:06)
[2017-02-28] MEDS: ZOFRAN IV PRN ×3 (10:12→19:46)
[2017-02-28] MEDS ORDERED: XOPENEX NEB INH ONE (13:01)
[2017-02-28] MEDS ORDERED: NS NEB INH SCH (13:15)
[2017-02-28] MEDS ORDERED: CITRATE OF MAGNESIA PO ONE (13:56)
[2017-02-28] MEDS ORDERED: LINZESS PO ONE (17:21)
[2017-02-28] MEDS ORDERED: DULCOLAX PO ONE (17:21)
--- NOTE | 2017-02-28 17:32 | PROGRESS NOTE ---
DATE: 02/28/2017 SUBJECTIVE: The patient had some nausea overnight. She is still undergoing the prep for endoscopy. Her stool was still brown and not yet clear. OBJECTIVE: Vital Signs: Temperature 98.2 degrees, blood pressure 153/65, heart rate 78, respirations 20, O2 saturations 98% on room air. General: This is an elderly female, lying in bed, in no acute distress. Head: Normocephalic, atraumatic. Heart: S1, S2. Normal. Regular rate and rhythm. Lungs: Clear to auscultation bilaterally. No wheezes, no rales. No rhonchi. Abdomen: Positive bowel sounds. Soft, nontender, nondistended. Extremities: No edema. No cyanosis. No calf tenderness. Neurologic: The patient is alert and oriented x3. LABS: Hemoglobin 8.4, hematocrit 27, white count 6.6, platelets 237,000, potassium 3.4, chloride 142, BUN 10, creatinine 0.9, albumin 3.1. ASSESSMENT AND PLAN: 1. Gastrointestinal bleed. The patient is currently undergoing prep for a repeat colonoscopy. We will continue to monitor this closely. Gastroenterology is following. 2. Anemia of acute blood loss. The patient's hemoglobin and hematocrit are improved after receiving 1 unit of packed red blood cells yesterday. We will continue to monitor this closely and transfuse p.r.n. 3. Multiple colonic polyps. Aware. 4. Extensive internal and external hemorrhoids. Aware. 5. Hypertension. Continue on the current antihypertensive regimen. 6. Atrial fibrillation. The patient is currently rate controlled. The Pradaxa is currently on hold. 7. Diabetes mellitus type 2. Continue on Lantus plus sliding scale insulin. 8. Gastrointestinal prophylaxis. Continue on IV Protonix. 9. Deep vein thrombosis prophylaxis. Continue with sequential compression devices. cc: Alia Reyes MD
[2017-02-28] MEDS: SODIUM CHLORIDE 0.9% INJ SCH (17:44)
--- NOTE | 2017-02-28 17:49 | PROGRESS NOTE ---
DATE: 02/28/2017 SUBJECTIVE: The patient states that she feels okay. Despite the last 2-3 days of receiving laxatives, she continues to have brown stool. Thus far, she has received GoLYTELY, MiraLAX, Dulcolax, and senna. She notes mild nausea this afternoon but otherwise she is tolerating the multiple day bowel prep without difficulty. OBJECTIVE: Vital signs: On exam, her blood pressure is 153/65, pulse 78, respiration 20, temperature of 98.2 degrees. Our exam was deferred as the patient had to go to the restroom. OBJECTIVE DATA: Remarkable for hemoglobin of 8.4 with hematocrit 27.6 and white count of 6.63. She has 237,000 platelets. Sodium is 142, potassium 3.4, chloride 105, CO2 26, BUN 10, creatinine 0.9, with a glucose 103. Calcium is 8.6, phosphorus 3.0, and albumin 3.1. RECOMMENDATION: 1. Continue the bowel prep. 2. I will add magnesium citrate 1 bottle, Dulcolax 10 mg, Linzess 145 mcg p.o. x1 now. 3. We will schedule EGD and colonoscopy tomorrow. 4. She will most likely need an enema tonight and in the morning. 5. Additional recommendations to follow based on her endoscopic evaluation. cc: MD Mariah Patton MD Katherine Takundwa, MD
[2017-02-28] MEDS: DULCOLAX PR ONE ×2 (19:46→22:30)
[2017-03-01] MEDS: HUMULIN R SUBQ SCH ×4 (06:01→23:03)
[2017-03-01] MEDS: PROTONIX IV SCH ×2 (06:16→17:24)
[2017-03-01 06:58] LABS: HEMATOCRIT 27.6 % (37.0-47.0); HEMOGLOBIN 8.4 g/dL (12.0-16.0); MCH 25.2 PG (27-31); MCHC 30.4 g/dL (33-37); MCV 82.9 FL (81-99); RBC 3.33 XMIL (4.2-5.4)
[2017-03-01 07:28] LABS: ALBUMIN 3.1 g/dL (3.5-5.0); POTASSIUM 3.7 mmol/L (3.5-5.1)
[2017-03-01] MEDS: LANTUS SUBQ SCH (08:10)
[2017-03-01] MEDS: JANUVIA PO SCH (08:13)
[2017-03-01] MEDS: LASIX PO SCH (08:13)
[2017-03-01] MEDS: DIOVAN PO SCH (08:13)
[2017-03-01] MEDS: COREG PO SCH ×2 (08:13→22:07)
[2017-03-01] MEDS: MULTAQ PO SCH (08:28)
--- NOTE | 2017-03-01 12:23 | PROGRESS NOTE ---
DATE: 03/01/2017 SUBJECTIVE: No acute events noted overnight. The patient's stools remain liquid and brown. OBJECTIVE: Vital Signs: Temperature 98 degrees, blood pressure 150/57, heart rate 73, respirations 18, O2 saturations 95% on room air. General: This is an elderly female lying in bed in no acute distress. Head: Normocephalic, atraumatic. Heart: S1, S2. Normal. Abdomen: Positive bowel sounds. Soft, nontender, nondistended. Extremities: No edema. No cyanosis. No calf tenderness. Neurologic: The patient is alert and oriented x3. LABORATORY: White blood cell count 5.8, hemoglobin 8.4, hematocrit 27, platelets 249,000. Sodium 143, potassium 3.7, chloride 106, CO2 27, BUN 9, creatinine 1, glucose 84. ASSESSMENT AND PLAN: 1. Gastrointestinal bleed. The patient is still being prepped for a colonoscopy. Further management as per the residency program coordinator. 2. Anemia of acute blood loss. The patient's hemoglobin and hematocrit is stable. 3. Multiple colonic polyps. Aware. 4. Extensive internal and external hemorrhoids. Aware. 5. Atrial fibrillation. The patient is currently rate controlled. 6. Hypertension. Continue on the current antihypertensive regimen. 7. Diabetes mellitus type 2. Continue on Lantus plus sliding scale insulin. 8. Gastrointestinal prophylaxis. Continue on IV Protonix. 9. Deep vein thrombosis prophylaxis. Continue with Sequential Compression Devices. cc: Alia Reyes MD
[2017-03-01] MEDS ORDERED: DIPRIVAN 1% ONE (16:49)
[2017-03-01] MEDS: SODIUM CHLORIDE 0.9% INJ SCH (17:24)
[2017-03-01 17:58] LABS: MANUAL DIFF NEEDED? NO
[2017-03-01 18:03] LABS: BASO% 0.3 % (0.0-0.8); EOS# 0.45 X1000 (0.0-0.7); EOS% 7.3 % (0.0-10.0); HEMATOCRIT 28.7 % (37.0-47.0); HEMOGLOBIN 8.9 g/dL (12.0-16.0); IMM GRAN# 0.03 X1000 (0.0-0.04); IMM GRAN% 0.5 % (0.0-0.5); LYMPH# 0.79 X1000 (1.2-3.4); LYMPH% 12.8 % (20.5-51.1); MCH 25.4 PG (27-31); MONO# 0.33 X1000 (0.11-0.59); MONO% 5.4 % (1.7-9.3); MPV 9.7 FL (7.4-10.4); NEUT% 73.7 % (42.2-75.2); PLT 262 X1000 (130-400)
--- NOTE | 2017-03-02 05:39 | OPERATIVE NOTE ---
PROCEDURE DATE: 03/01/2017 REFERRING PHYSICIAN: Alia Reyes M.D. PRIMARY CARE PROVIDER: Mariah Mcguire M.D. INDICATION FOR PROCEDURE: 1. Colon polyps seen on previous colonoscopy attempt. 2. Rectal bleeding. 3. History of diverticulosis. PROCEDURE PERFORMED: 1. Colonoscopy with control of bleeding. 2. Colonoscopy with polypectomy. 3. Colonoscopy with biopsy and Pari ink tattoo placement. CONSENT: Informed consent was obtained from the patient prior to the procedure. The risks, benefits, and alternatives were discussed with the patient, her daughter, and her son. MEDICATIONS: The patient received monitored anesthesia care. PERFORMING PHYSICIAN: Adri Lozano M.D. ASSISTANTS: 1. ST. [facility] 2. Marilyn St RN. 3. Jose Vela CRNA. 4. Kash Burch M.D. (anesthesia). COMPLICATIONS: There were no complications. ESTIMATED BLOOD LOSS: 2-3 mL. SPECIMENS REMOVED: 1. Polyp at 40 cm. 2. Mass at 20 cm. CECAL INTUBATION TIME: 12 minutes. WITHDRAWAL TIME: 25 minutes. PREP QUALITY: Fair. (Please note this was a 4-day bowel prep.) FINDINGS: After sedation was achieved, the pediatric colonoscope was inserted to the cecum. The ileocecal valve and appendiceal orifice appeared endoscopically normal. In the cecum and in the proximal ascending colon, there were multiple AVMs that were actively oozing. Cautery with a black wire was required for hemostasis. There were multiple AVMs that were cauterized. There were multiple nonbleeding AVMs adjacent to those that required cautery. Upon withdrawal of the scope, the colonic mucosa appeared normal. However, she had extensive diverticulosis in the ascending, transverse, descending, and sigmoid colon. At 40 cm, there was a benign-appearing polyp that was approximately 6-8 mm in size that was removed by snare cautery. Upon further withdrawal, there was a mass at approximately 22 cm. It extended from 20-22 cm. It was necrotic with a central ulceration. The edges were irregular, and there was active bleeding at the time of visualization. Pari ink tattoo 0.5 mL x3 was placed on the proximal surface of the colon immediately prior to the mass. 0.5 mL was placed on the distal surface. Multiple biopsies were taken. The biopsy sites were cauterized using the black wire. Adjacent to and part of the large mass, were 2 sessile polyps that appeared to be tubulovillous adenomas based on the frondlike- appearance of the edges. No biopsies were taken. Upon further withdrawal, the upper rectum appeared endoscopically normal. On retroflexed view, there were large external hemorrhoids that were not bleeding. After the exam was complete, the lumen was decompressed and the scope was removed without incident. The patient tolerated the procedure well. IMPRESSION: 1. 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 2. Dias diverticulosis. 3. Benign-appearing sessile polyp at 40 cm, status post snare cautery. 4. A 2-3 cm mass at approximately 20 cm, extending to 22 cm,, with a central necrotic ulcer, status post biopsy. 5. Pari ink tattoo placement adjacent to the large sigmoid colon mass. 6. Multiple sessile colon polyps in the sigmoid colon that remain intact. 7. Large external hemorrhoids. RECOMMENDATION: 1. Await biopsy results. I spoke with Dr. Didier Clay, who will perform a butterfield evaluation on this specimen. 2. I will check a CT scan of the chest, abdomen, and pelvis to stage her for malignancy, as the lesion appears to be consistent with adenocarcinoma of the colon. 3. I will check a CEA level. 4. I spoke with Dr. Brad Olivarez from Surgery, who will see the patient in the morning. 5. I also discussed her care with Dr. Ananya Acuña, who will evaluate her tomorrow. 6. Because the patient had such difficulty with bowel prep, I would place the patient on a clear liquid diet, pending further evaluation. She will need surgical intervention soon. 7. Additional recommendations to follow based on her clinical course. cc: MD Alia Patton MD Faye Wilson, MD Heather Shah, MD Jason R. Seale, MD MTDD
[2017-03-02] MEDS: PROTONIX IV SCH ×2 (06:49→18:33)
[2017-03-02] MEDS: HUMULIN R SUBQ SCH ×4 (06:50→20:27)
[2017-03-02 07:16] LABS: HEMATOCRIT 28.3 % (37.0-47.0); HEMOGLOBIN 8.7 g/dL (12.0-16.0); MCH 25.7 PG (27-31); MCHC 30.7 g/dL (33-37); MCV 83.5 FL (81-99); MPV 10.2 FL (7.4-10.4); RBC 3.39 XMIL (4.2-5.4)
[2017-03-02 07:26] LABS: ALBUMIN 3.1 g/dL (3.5-5.0); CALCIUM 8.6 mg/dL (8.8-10.2); POTASSIUM 3.2 mmol/L (3.5-5.1)
--- NOTE | 2017-03-02 07:32 | Diag Imaging Result Doc PS360 ---
EXAM: THORAX/ABDOMEN/PELVIS - 03/01/2017 HISTORY: new sigmoid colon mass TECHNIQUE: With intravenous contrast. Dose reduction protocol. COMPARISON: Without contrast CT abdomen and pelvis of 02/23/2017 FINDINGS: There is a medium right pleural effusion. There is associated compressive atelectasis at the right lower lobe. There is no other consolidation identified. There is no pneumothorax seen. There is a left lower lobe calcified granuloma and there are calcified left hilar lymph nodes from old granulomatous disease. There are no other pulmonary nodular lesions identified. There are a few borderline noncalcified paratracheal and subcarinal mediastinal lymph nodes. There is a possible small filling defect at left lower lobe pulmonary artery, which may represent pulmonary embolus. There is mild cardiomegaly. There are no acute abnormalities of the liver, spleen, adrenal glands, or pancreas identified. The spleen is upper normal in size similar to the previous exam, and the pancreas is somewhat atrophic similar to the previous exam. There are no calcified gallstones seen. The bilateral kidneys enhance homogeneously. There is no hydronephrosis. There is a duodenal diverticulum adjacent to the posterior pancreatic head similar to the previous exam. There is no associated inflammation seen. There are nonspecific small retroperitoneal lymph nodes. There are no substantial enlarged lymph nodes identified. There is no evidence of bowel obstruction. There is colonic diverticulosis which is most extensive in the sigmoid colon, and the sigmoid colon is noted to be tortuous. There are mild inflammatory changes at the posterior pelvis. There is no substantial sigmoid wall thickening identified. There is a small amount of gas along the margins of the distal sigmoid colon which is possibly extraluminal. This could relate to microperforation. There is no abscess identified. There is no free intraperitoneal air identified. IMPRESSION: Medium right pleural effusion with adjacent compressive atelectasis at the right lower lobe. A few borderline mediastinal lymph nodes. No other evidence of metastatic disease to the thorax. Possible pulmonary embolus at left lower lobe. If further imaging evaluation is desired, dedicated CT pulmonary angiogram is recommended. Mild cardiomegaly. Sigmoid diverticulosis. Mild inflammatory changes at posterior pelvis. Possible small amount of extraluminal gas adjacent to distal sigmoid which could relate to microperforation. There is no discrete diverticulitis identified. There is no free intraperitoneal air or abscess identified. Nonspecific small retroperitoneal lymph nodes. No other evidence of metastatic disease in the abdomen or pelvis. The demolition crane operator radiologist provided primary results at 10:47 PM on 03/01/2017. Electronically signed by Nathaniel [employer] 03/02/2017 7:30 AM
[2017-03-02] MEDS ORDERED: KLOR-CON PO ONE (07:35)
[2017-03-02] MEDS ORDERED: HEPARIN 25,000 UNITS/D5W 25,000 UNIT/250 ML IV.SOLN IV SCH (08:15)
[2017-03-02] MEDS ORDERED: HEPARIN 25,000 UNIT in NS 250 ML IV SCH (09:00)
[2017-03-02 09:25] LABS: INR 1.03; PROTIME 10.8 Seconds (9.2-11.7)
[2017-03-02] MEDS: LASIX PO SCH (09:27)
[2017-03-02] MEDS: MULTAQ PO SCH (09:28)
[2017-03-02] MEDS: LANTUS SUBQ SCH (09:28)
[2017-03-02] MEDS: JANUVIA PO SCH (09:28)
[2017-03-02] MEDS: COREG PO SCH ×2 (09:28→20:26)
[2017-03-02] MEDS: DIOVAN PO SCH (09:28)
[2017-03-02 09:36] LABS: PTT HEPARIN PROTOCOL 27.4 Seconds
[2017-03-02 09:45] LABS: ALLEN TEST YES; BE 4.1 mmoll (-3.0-3.0); BLOOD TYPE ARTERIAL; DRAW SITE R RADIAL; O2(CT) 12.7 mL/dL (15.0-23.0); PCO2(98.6) 41 mmHg (35-45); PO2(98.6) 68 mmHg (60-100); SAMPLE BLOOD; SAO2 96.2 % (95.0-100.0); THB 9.6 g/dL (11.5-17.4); pH(98.6) 7.45 (7.35-7.45)
[2017-03-02 09:46] LABS: MODALITY CANNULA
--- NOTE | 2017-03-02 12:28 | Diag Imaging Result Doc PS360 ---
EXAM: LUNG SCAN / VQ INDICATION: pulmonary embolism TECHNIQUE: 40.7 mCi of aerosolized technetium 99 DTPA was administered for the ventilation portion of the scan. 5.2 mCi of IV technetium 99 MAA was administered for the perfusion portion of the scan. COMPARISON: None. FINDINGS: There is evidence of an elevated right hemidiaphragm, which can also be seen on the accompanying chest radiograph. There are perhaps a few matched nonsegmental small perfusion defects bilaterally. There are no definite segmental defects identified. IMPRESSION: Low probability of pulmonary embolism. Electronically signed by Luis Cedillo 03/02/2017 12:26 PM
--- NOTE | 2017-03-02 12:41 | Diag Imaging Result Doc PS360 ---
EXAM: CHEST-2 VIEWS INDICATION: V-Q FOLLOW UP TECHNIQUE: 2 views COMPARISON: None. FINDINGS: There is elevation of the right hemidiaphragm. There is suggestion of mild atelectasis at the right lung base. There is likely at least a small pleural effusion layering at the right lung base. Cardiac silhouette is mildly prominent. Central vasculature is unremarkable. IMPRESSION: 1.Suggestion of a small right pleural effusion with adjacent right basilar atelectasis. 2.Mild cardiomegaly. Electronically signed by Luis Cedillo 03/02/2017 12:38 PM
--- NOTE | 2017-03-02 16:36 | CONSULTATION ---
DATE OF CONSULTATION: 03/02/2017 REFERRING PHYSICIAN: Dr. Lozano. REASON FOR CONSULTATION: Colon mass. HISTORY OF PRESENT ILLNESS: This is a 77-year-old female, who was admitted almost a week ago for worsening generalized weakness, that had been developing over several weeks. She also had an episode several weeks ago with rectal bleeding for several days. She has occasional vague abdominal pain. No exacerbating or relieving factors. Some occasional nausea. Since admission, she was found to be significantly anemic on presentation. She has received 2 units of blood since admission and underwent colonoscopy yesterday. Dr. Lozano found a malignant-appearing mass at 20 cm in the distal colon, likely at the colorectal transition. It had an ulcerated area and some necrosis. There was also some bleeding at the time of the colonoscopy. She biopsied it and performed tattooing around the mass. There were other sessile polyps adjacent to the mass. A separate polyp at 40 cm, less than 1 cm in size was removed with snare polypectomy. She had a CT of her chest, abdomen and pelvis today for further workup and it shows a medium size right pleural effusion and some compressive atelectasis of the lower lobe on the right. A few borderline mediastinal lymph nodes. A possible pulmonary embolus on the left lower lobe. Sigmoid diverticulosis and mild inflammatory changes at the posterior pelvis with possible extraluminal gas adjacent to the distal sigmoid colon. There are nonspecific small retroperitoneal lymph nodes. No evidence of metastatic disease. A VQ scan today showed low probability of pulmonary embolus. PAST MEDICAL HISTORY: Atrial fibrillation, diabetes, hypercholesterolemia, history of peptic ulcer disease. PAST SURGICAL HISTORY: Hysterectomy. ALLERGIES: Penicillin and sulfa. FAMILY HISTORY: Reviewed and noncontributory. SOCIAL HISTORY: She denies tobacco, alcohol or illicit drug use. REVIEW OF SYSTEMS: Ten systems reviewed and negative except as noted above. PHYSICAL EXAMINATION: Vital Signs: Temperature 98.8, pulse 75, blood pressure 147/53. O2 saturation 94%. General: She is an elderly female who looks her stated age in no acute distress. HEENT: Normocephalic, atraumatic. Extraocular muscles intact. Pupils equal, round, reactive to light. Sclerae anicteric. Neck: Supple. No thyromegaly. CV: Irregularly irregular. Respiratory: No work of breathing. Gastrointestinal: Soft, nondistended, minimal tenderness throughout. No rebound or guarding. No hernias. She has a well-healed lower midline incision. Extremities: No clubbing or cyanosis. There is some mild edema. Skin: Warm and dry. No rash. Musculoskeletal: She moves all extremities equally, but weakly. LABORATORY: White blood cell count 6.4, hemoglobin 8.7, platelet count 262. Metabolic profile reviewed and unremarkable. A CEA level is 7.7. IMAGING: As described above in HPI. ASSESSMENT AND PLAN: A 77-year-old female with apparent new diagnosis of colon cancer. We are awaiting the biopsy results and I am tentatively planning open sigmoid colectomy tomorrow. I discussed the risks and benefits with her including bleeding, infection, anastomotic leak, incisional hernia, perioperative pulmonary or cardiovascular compromise and other imponderables. She understands and agrees to proceed. cc: Brad Olivarez MD
--- NOTE | 2017-03-02 18:11 | PROGRESS NOTE ---
DATE: 03/02/2017 SUBJECTIVE: This patient is lying on the bed comfortably. She does not have any complaints at this moment. Her abdomen is a little bit tender to palpation mostly at the level of the periumbilical area and epigastric area. She had a colonoscopy done yesterday that showed active bleeding AV malformation in the second and ascending colon status post cautery and diverticulitis, benign appearing sessile polyp at 40 cm status post snare cautery. A 2-3 cm mass at approximately 20 cm, extending to 22 cm with a central necrotic ulcer, status post biopsy at the level of the sigmoid colon, multiple sessile colon polyps in the sigmoid colon that remain intact and, large external hemorrhoids. OBJECTIVE: Vital Signs: Temperature 98.3 degrees, pulse 76, respiratory rate 18, blood pressure 142/51, O2 saturation 97 on 2 L of nasal cannula. HEENT: Head normocephalic. No trauma. PERRLA. Neck: Supple. No JVD. No masses. Central trachea. Chest: Clear to auscultation. No wheezing. No rales. Abdomen: Soft. Mild tenderness to palpation at the level of the epigastric area and periumbilical area. Mild distended. Positive bowel sounds. Extremities: No edema. No clubbing. No cyanosis. Neurological: The patient is alert, oriented x3. No focal deficits. LABORATORY: WBC 6.3, hemoglobin 8.7, hematocrit 28.3, platelets 262,000. Sodium 140, potassium 3.2, chloride 101, bicarbonate 27, BUN 7, creatinine 1, glucose 102, calcium 8.6. Albumin 3.1. ASSESSMENT AND PLAN: 1. Gastrointestinal bleed status post colonoscopy. AV malformation was found as well as a sigmoid mass. Surgery Department has been consulted. Probably this patient will have surgery tomorrow. They are planning to do a colectomy. 2. Sigmoid mass. Surgery on board as above. 3. Anemia of acute blood loss. Hemoglobin and hematocrit have been stable. 4. Multiple colonic polyps. Aware. 5. Extensive external hemorrhoids. Aware. 6. Afib currently rate controlled. 7. Hypertension. Blood pressure is stable. Continue the same management. 8. Diabetes mellitus type 2. Continue with the same management. Stable. 9. Gastrointestinal prophylaxis. Continue with Protonix. 10. DVT prophylaxis. Continue with SCDs. We have a CT scan result that showed the possibility of left lower lung pulmonary embolism. She was placed on heparin drip but this was already stopped because we did a CT scan that showed a low probability of pulmonary embolism. cc: Sanjeev Alfaro MD
--- NOTE | 2017-03-02 18:17 | CONSULTATION ---
DATE OF CONSULTATION: 03/02/2017 REQUESTING PHYSICIAN: Dr. Lozano. REASON FOR CONSULTATION: Colon mass, as well as left lower extremity PTE. HISTORY OF PRESENT ILLNESS: Ms. Burnett is a 77-year-old female, who initially presented to the emergency department complaining of generalized weakness. She also had some rectal bleeding. The patient was admitted for further evaluation and workup. She did undergo a colonoscopy, which revealed her to have a 2-3 cm mass, that has since been biopsied. Patient also had some bleeding AVMs that have been cauterized. The patient was also found to be anemic at presentation, with a hemoglobin of 6.9. We have been consulted, as she has a colon mass, as previously mentioned. The patient had a CT of chest, abdomen, and pelvis done yesterday, which showed the possibility of a left lower lobe pulmonary embolism. She is currently on a heparin drip. PAST MEDICAL HISTORY: 1. Atrial fibrillation. 2. Diabetes mellitus type 2. 3. High cholesterol. 4. Gastric ulcer several years ago. 5. Chronic low back pain. PAST SURGICAL HISTORY: 1. Hysterectomy. 2. Cataract surgery. SOCIAL HISTORY: The patient denies any alcohol, tobacco, or current drug use. REVIEW OF SYSTEMS: As per the HPI. All else is negative and noncontributory. FAMILY HISTORY: Positive for coronary artery disease, as well as hypertension and diabetes mellitus. The patient denies any cancer in her family. PHYSICAL EXAMINATION: Vital Signs: Temperature 98.8 degrees, heart rate 75, respirations 18, blood pressure 147/53, O2 saturation 92% on 2 L nasal cannula. General: female lying in hospital bed, in no acute distress. The patient has a family member by the bedside. Head: Head appears to be normocephalic, atraumatic. Eyes: Pupils equal, round, reactive. Ears, Nose, Throat, Neck, and Mouth: Oral mucosa is normal. Trachea is midline. Gross auditory acuity is intact. Cardiovascular: S1-S2 heard. Regular rate. Respiratory: Clear to auscultation bilaterally. Normal respiratory effort. Gastrointestinal: Abdomen is soft, nondistended. Positive bowel sounds. Musculoskeletal: No bony abnormalities noted. Extremities: Patient has trace bilateral lower extremity edema. Neurologic: Patient is alert. She does have some trouble answering some of her history questions. She does not seem to be confused or altered. No obvious focal motor deficits noted. LABORATORIES AND STUDIES: White blood cells 6.37, hemoglobin 8.7, hematocrit 28.3, platelets 262,000. Sodium 140, potassium 3.2, chloride 101, CO2 27, BUN 7, creatinine 1.0 , glucose 102. CEA is 7.7. ASSESSMENT AND PLAN: 1. Colon mass. We will await the pathology. The biopsy has been completed. Explained to the patient that we will need a pathology report, and then we can discuss further treatment once that is obtained. CT of the chest, abdomen, and pelvis has been completed, and shows no metastatic disease within the thorax. She does have some nonspecific small retroperitoneal lymph nodes, but no evidence of metastatic disease within the abdomen and pelvis either. Surgery has already been consulted. 2. Possible pulmonary thromboembolism on CT scan. The patient has just come back from a V/Q scan. I will follow up on those results. Patient is currently on a heparin drip. 3. Anemia, secondary to acute blood loss. Patient's hemoglobin is improved, as per above. She did receive 2 units of packed red blood cells. Continue to monitor. 4. Atrial fibrillation. Patient is currently rate controlled. Continue current management. 5. Diabetes mellitus type 2. Continue sliding scale insulin as per the primary team. Thank you for consulting us on Ms. Corine Burnett. Dictated by AILIN Borges for Ananya Acuña MD cc: Ananya Acuña MD I have examined the patient, reviewed the chart and agree with above A/P. Await pathology. Ananya Acuña MD [facility]
[2017-03-02] MEDS: FLAGYL 500 MG/NS 500 MG/100 ML IVPB IV SCH ×2 (18:33→22:35)
[2017-03-02] MEDS: SODIUM CHLORIDE 0.9% INJ SCH (18:33)
[2017-03-02] MEDS: LEVAQUIN 500 MG/D5W 500 MG/100 ML IVPB IV SCH (20:27)
--- NOTE | 2017-03-02 21:22 | PROGRESS NOTE ---
DATE: 03/02/2017 SUBJECTIVE: The patient is a 77-year-old white female with a colon mass at 20 cm. Overnight, she had a CT scan that revealed a right pleural effusion and some atelectasis in the right lower lobe with a possible pulmonary embolus in the left lower lobe. She had diverticulosis and inflammatory changes with possible extraluminal gas adjacent to the distal colon. There was nonspecific retroperitoneal nodes with no evidence of metastatic disease. V/Q scan shows low probability of a pulmonary embolus. She is currently scheduled to undergo an open sigmoid colectomy tomorrow by Dr. Olivarez. Currently, she reports no abdominal pain stating that she feels reasonably well. She denies nausea with vomiting and abdominal pain. OBJECTIVE: Vital signs: Her blood pressure is 147/53, pulse 75, respiration 18 , temperature of 98.9 degrees. Her saturation is 92-94% on 2 L of oxygen. Abdomen: Soft. OBJECTIVE DATA: Reveals a hemoglobin of 8.7 with hematocrit of 28.3 and a white count of 6.37 with 262,000 platelets. Her PT is 10.8 with an INR of 1.03 and a PTT of 27.4. On ABG her pH is 7.45, pCO2 41, PO2 68 on 28%. Sodium is 140, potassium 3.2, chloride 101, CO2 27, BUN 7, creatinine 1.0 with a glucose of 102. Her calcium is 8.6, phosphorus 3.7, magnesium 1.5 and albumin 3.1. It should be noted that her CEA is 7.7. IMPRESSION: 1. A mass at 20 cm, likely adenocarcinoma. 2. Diverticulosis with possible diverticulitis. 3. 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 4. Large external hemorrhoids. RECOMMENDATION: 1. I agree with plans for surgical intervention with an open cholecystectomy pending her biopsy results. 2. I appreciate the input from Dr. Olivarez and from Dr. Ananya Acuña regarding her care. 3. With regard to her anemia, will monitor and transfuse as indicated. 4. Additional recommendations to follow based on her clinical course. cc: Brad Olivarez MD [facility]
[2017-03-03] MEDS: PROTONIX IV SCH ×2 (05:25→19:42)
[2017-03-03] MEDS: SODIUM CHLORIDE 0.9% INJ SCH (05:25)
[2017-03-03] MEDS: FLAGYL 500 MG/NS 500 MG/100 ML IVPB IV SCH ×3 (05:26→19:43)
[2017-03-03] MEDS: ZOFRAN IV PRN ×2 (06:27→18:46)
--- NOTE | 2017-03-03 06:47 | Extremity Venous Study ---
PROCEDURE NAME: Venous U/S Bilateral Legs - 03/02/2017 STUDY: Bilateral lower extremity venous imaging study. REFERRING PHYSICIANS: Alia Reyes MD INTERPRETING PHYSICIAN: Maurice Dia MD STONE SANDBLASTER: Jhony. INDICATION: The patient has edema and shortness of breath. FINDINGS: Bilateral lower extremity venous images accomplished. The common femoral, superficial femoral, deep femoral, popliteal, posterior tibial, peroneal, and greater saphenous veins are imaged bilaterally. The Doppler is used to evaluate the veins for spontaneity, phasicity, respiratory and distal augmentation. All veins are compressible. No intraluminal clot is seen. INTERPRETATION: No evidence of deep or superficial venous thrombosis in either lower extremity in the veins identified. cc: MD Alia العراقي MD
[2017-03-03 06:48] LABS: HEMATOCRIT 27.4 % (37.0-47.0); HEMOGLOBIN 8.4 g/dL (12.0-16.0); MCH 25.5 PG (27-31); MCHC 30.7 g/dL (33-37); MCV 83.3 FL (81-99); MPV 9.8 FL (7.4-10.4); RBC 3.29 XMIL (4.2-5.4)
[2017-03-03] MEDS: HUMULIN R SUBQ SCH ×4 (06:49→23:14)
[2017-03-03 07:01] LABS: AGAP 10; ALBUMIN 3.4 g/dL (3.5-5.0); BUN 7 mg/dL (8-22); CALCIUM 8.5 mg/dL (8.8-10.2); CHLORIDE 104 mmol/L (98-107); COSMO 280; POTASSIUM 3.6 mmol/L (3.5-5.1); SODIUM 142 mmol/L (136-145); TCO2 28 mmol/L (25-35)
[2017-03-03] MEDS: JANUVIA PO SCH (09:27)
[2017-03-03] MEDS: COREG PO SCH ×2 (09:31→23:16)
[2017-03-03] MEDS: LANTUS SUBQ SCH (12:19)
[2017-03-03] MEDS ORDERED: NORCURON ONE (13:36)
[2017-03-03] MEDS ORDERED: XYLOCAINE-MPF 2% ONE (13:36)
[2017-03-03] MEDS ORDERED: DIPRIVAN 1% ONE (13:36)
[2017-03-03] MEDS ORDERED: QUELICIN (DOSE) ONE ×2 (13:36→13:42)
[2017-03-03] MEDS ORDERED: SODIUM CHLORIDE 0.9% 10 ML ONE (13:42)
--- NOTE | 2017-03-03 14:23 | PROGRESS NOTE ---
DATE: 03/03/2017 . SUBJECTIVE: This patient is lying on the bed comfortably. She does not have any complaints. Today, hopefully, she will have surgery. She has a sigmoid mass. OBJECTIVE: Vital Signs: Temperature 98.2 degrees, pulse 73, respiratory rate 16, blood pressure 152/57, oxygen saturation 93% on room air. HEENT: Head normocephalic. No trauma. PERRLA. Neck supple. No JVD. No masses. Central trachea. Chest: Clear to auscultation. No wheezing. No rales. Abdomen is soft, obese, protuberant, nontender. Positive bowel sounds. Extremities: No edema. No clubbing. No cyanosis. Neurologic: The patient is alert and oriented x3. No focal deficits. LABORATORY: WBC 5, hemoglobin 8.4, hematocrit 27.4, platelets 252,000. Sodium 142, potassium 3.6, chloride 104, bicarbonate 28. BUN 7, creatinine 0.9, glucose 85, calcium 8.5, albumin 3.4, magnesium 1.6. ASSESSMENT AND PLAN: 1. Gastrointestinal bleed status post colonoscopy, and AV malformation was found as well as a sigmoid mass. Surgery Department is on board. 2. Sigmoid mass. As mentioned before, Surgery Department is on board. They are planning to go to the OR today. 3. Anemia of acute blood loss. Hemoglobin and hematocrit have been stable. 4. Multiple colonic polyps, aware. 5. Extensive external hemorrhoids, aware. 6. Atrial fibrillation, currently rate controlled. 7. Hypertension. Blood pressure is stable. Continue with the same management. 8. Type 2 diabetes, stable. Continue with the same management. 9. Gastrointestinal prophylaxis with Protonix and deep venous thrombosis prophylaxis. Continue with sequential compression devices. cc: Sanjeev Alfaro MD
--- NOTE | 2017-03-03 14:27 | EKG Report ---
Test Performed on : 03/03/2017 2:04:28 PM Test Reason : DR RODOLFO Blood Pressure : / mmHG Vent. Rate : 074 BPM Atrial Rate : 074 BPM P-R Int : 212 ms QRS Dur : 090 ms QT Int : 394 ms P-R-T Axes : 059 009 038 degrees QTc Int : 437 ms Sinus rhythm. with 1st degree AV block. Otherwise normal ECG No previous ECGs available Confirmed by Davi RAMEY, Pablo King ([id number]) on 03/03/2017 2:57:03 PM
[2017-03-03 15:22] LABS: BILIRUBIN URINE NEGATIVE (NEGATIVE); BLOOD URINE NEGATIVE (NEGATIVE); COLOR YELLOW; GLUCOSE URINE NEGATIVE (NEGATIVE); LEUKOCYTES URINE NEGATIVE (NEGATIVE); NITRITE URINE NEGATIVE (NEGATIVE); PROTEIN URINE NEGATIVE (NEGATIVE); SP GRAVITY URINE 1.013; TURBIDITY URINE CLEAR (CLEAR); URINE MICRO REVIEW NEEDED? NO; URINE SOURCE CATH; UROBILINOGEN URINE NORMAL (NORMAL)
[2017-03-03 15:23] LABS: UR EPITHELIAL CELLS <10 /HPF (<10); URINE BACTERIA NEGATIVE /HPF; URINE RBC <10 /HPF (<10); URINE WBC <10 /HPF (<10)
[2017-03-03] MEDS ORDERED: ZOFRAN ONE (16:04)
[2017-03-03] MEDS ORDERED: ROBINUL ONE ×2 (16:04→16:18)
[2017-03-03] MEDS ORDERED: FENTANYL ONE (16:09)
[2017-03-03] MEDS ORDERED: NEOSTIGMINE ONE (16:21)
[2017-03-03] MEDS ORDERED: OFIRMEV 1000 MG/ISOTONIC SOLN 1,000 MG/100 ML BOTTLE ONE (16:21)
[2017-03-03] MEDS: DEMEROL ONE ×2 (17:30→17:37)
[2017-03-03] MEDS ORDERED: LR 1,000 ML ONE (17:34)
[2017-03-03] MEDS ORDERED: NS 1,000 ML ONE (17:34)
[2017-03-03] MEDS ORDERED: DILAUDID IV PRN (18:43)
[2017-03-03] MEDS: DIOVAN PO SCH (19:58)
[2017-03-03] MEDS: MULTAQ PO SCH (19:58)
[2017-03-03] MEDS: LASIX PO SCH (19:58)
[2017-03-03] MEDS: LEVAQUIN 500 MG/D5W 500 MG/100 ML IVPB IV SCH (21:26)
[2017-03-03] MEDS ORDERED: PHENERGAN IV PRN (22:33)
[2017-03-03] MEDS: PERIDEX MT SCH (22:33)
[2017-03-03] MEDS: OFIRMEV 1000 MG/ISOTONIC SOLN 1,000 MG/100 ML BOTTLE IV SCH (22:33)
[2017-03-03] MEDS ORDERED: SODIUM CHLORIDE 0.9% INJ PRN (22:33)
[2017-03-04] MEDS: FLAGYL 500 MG/NS 500 MG/100 ML IVPB IV SCH ×3 (02:43→16:06)
[2017-03-04] MEDS: ZOFRAN IV PRN ×3 (02:43→18:14)
[2017-03-04] MEDS: OFIRMEV 1000 MG/ISOTONIC SOLN 1,000 MG/100 ML BOTTLE IV SCH ×4 (04:13→21:32)
--- NOTE | 2017-03-04 04:52 | OPERATIVE NOTE ---
PROCEDURE DATE: 03/03/2017 PREOPERATIVE DIAGNOSIS: Colon cancer. POSTOPERATIVE DIAGNOSIS: Colon cancer. PROCEDURE PERFORMED: Open low anterior colon resection. SURGEON: Dr. Brad Olivarez. REACTOR TECHNICIAN: Dr. Ac Casas. ANESTHESIA: General. ESTIMATED BLOOD LOSS: 50 mL. COMPLICATIONS: None apparent. SPECIMENS: Portion of sigmoid colon and the proximal rectum. FINDINGS: A cancerous mass with nearby tattoo was found in the rectum just below the peritoneal reflection. There was no evidence of any metastatic disease to the liver, omentum, or other peritoneal surfaces. TECHNIQUE: She was brought to the operating room and placed supine on the table. General anesthesia was induced. A Chinchilla catheter was placed. She was placed in stirrups. She was prepped and draped in the usual sterile fashion. An incision was made with a 10 blade from the upper mid abdomen down to the symphysis pubis, and carried down through the subcutaneous fat with a knife and through the fascia with cautery. The peritoneum was entered bluntly with finger dissection. The peritoneum was then opened up with cautery throughout the length of the incision, being careful to protect the underlying bowel. An adhesion of the omentum was taken down near the umbilicus with cautery. I then placed the patient in Trendelenburg. I then explored the abdomen, exploring the omentum, ascending and transverse colon, and descending colon. There was no evidence of any other suspicious lesions. I observed and felt both lobes of the liver. I did not see any metastatic disease. She then was placed in Trendelenburg. The small bowel and omentum were packed out of the pelvis. The sigmoid colon was somewhat adherent to itself in an S-shaped pattern. We divided these adhesions with cautery. I then incised the peritoneum on the lateral aspect of the sigmoid colon at the pelvic brim. I identified the ureter and followed it through its course down into the pelvis and stayed away from it during our dissection. The lateral peritoneal reflection was divided with cautery and taken down all the way on the left side. I then came around anteriorly over the rectum, dividing the peritoneum here. I then incised the peritoneum on the right side of the sigmoid colon and identified the ureter on the right side of the pelvic brim and followed it down through its course. We protected it throughout our dissection. The lateral peritoneal fold was divided with cautery. I then could palpate this malignant mass. We continued dissection a few centimeters below the peritoneal reflection to get a distal margin. I then selected an area of the sigmoid colon and made a window at the base of the mesentery with cautery. The nearby epiploica were excised. A Maricarmen clamp was placed distally. A pursestring suture device was placed proximally. The colon was divided in between with the knife. We did towel off our incision. I also was using a Bookwalter retractor for exposure. I divided the mesentery of the distal sigmoid colon and rectum with the ligasure all the way down to our proposed distal point of transection beyond the mass. I opened up the pursestring and placed a size 31 anvil and tied this pursestring suture down. I cleared off the fat to expose the serosa of the colon all the way around the edges of the anvil. This reached easily down into the pelvis with no tension. There was also good blood supply to our transected end of colon. Dr. Casas joined me at this point and was helpful in creating the stapled anastomosis. He also helped me divide some remaining lateral rectal stalk attachments with cautery. He then went below after we divided the rectum with a TA stapler distal to the mass. He dilated the rectal stump and then passed an EEA stapler up to the staple line. The male end was advanced just anterior to the staple line. I brought the anvil down and mated the two ends. He then brought the stapler together with the anvil. There was good approximation all the way around. It was under no tension. He fired the stapler and removed it. We then placed the anastomosis under saline. He insufflated. There was good insufflation past the anastomosis. There was no evidence of any leak. He then left the field. I suctioned out the old blood and irrigant. There were no signs of any active bleeding. We changed gloves. I removed all the laparotomy pads and closed the mesentery rent with interrupted 3-0 and 2-0 silk. The bowel was placed in its anatomic position. I closed the peritoneum with a running #1 Vicryl and closed the fascia with a looped #1 Maxon. The skin was closed with skin clips. There were no apparent complications. She was awakened in stable condition and transferred to the recovery room. cc: Brad Olivarez MD [facility]TD[facility]
[2017-03-04] MEDS: HUMULIN R SUBQ SCH ×3 (06:24→16:09)
[2017-03-04] MEDS: PROTONIX IV SCH ×2 (06:24→21:32)
[2017-03-04] MEDS: SODIUM CHLORIDE 0.9% INJ SCH ×2 (06:24→21:32)
[2017-03-04 07:08] LABS: BASO% 0.1 % (0.0-0.8); EOS# 0.02 X1000 (0.0-0.7); EOS% 0.2 % (0.0-10.0); HEMATOCRIT 30.3 % (37.0-47.0); HEMOGLOBIN 9.4 g/dL (12.0-16.0); LYMPH# 0.38 X1000 (1.2-3.4); LYMPH% 4.3 % (20.5-51.1); MANUAL DIFF NEEDED? YES; MCH 25.5 PG (27-31); MCV 82.3 FL (81-99); MONO# 0.32 X1000 (0.11-0.59); MONO% 3.6 % (1.7-9.3); MPV 9.9 FL (7.4-10.4); NEUT% 91.8 % (42.2-75.2); PLT 248 X1000 (130-400); RBC 3.68 XMIL (4.2-5.4)
[2017-03-04 07:42] LABS: CALCIUM 8.4 mg/dL (8.8-10.2); POTASSIUM 4.1 mmol/L (3.5-5.1)
[2017-03-04 08:08] LABS: BANDS 2 % (0-1)
[2017-03-04] MEDS: LANTUS SUBQ SCH (08:59)
[2017-03-04] MEDS: MULTAQ PO SCH (10:42)
[2017-03-04] MEDS: LASIX PO SCH (10:43)
[2017-03-04] MEDS: COREG PO SCH (10:43)
[2017-03-04] MEDS: DIOVAN PO SCH (10:43)
[2017-03-04] MEDS: PERIDEX MT SCH ×2 (10:55→21:32)
--- NOTE | 2017-03-04 12:47 | PROGRESS NOTE ---
DATE: 03/04/2017 SUBJECTIVE: The patient complains of some nausea and abdominal pain but overall has had a reasonably good day. She is set up in a chair and walked in the feldman. OBJECTIVE: Vital Signs: She is afebrile. Pulse is in the 70s to 90s. Respiratory rate 16, blood pressure 146/54, O2 saturation 96%. General: Alert and oriented x4. No acute distress. Respiratory: No work of breathing. Cardiovascular: Regular rate and rhythm. Gastrointestinal: Soft, nondistended. Appropriately tender. Her incisional dressing is dry with some old bloody shadow. LABORATORY: White blood cell count 8.8, hemoglobin 9.4, hematocrit 30. Electrolytes reviewed and unremarkable. ASSESSMENT/PLAN: A 77-year-old female, postoperative day 1, low anterior resection of a rectal cancer. We will keep her NPO except for ice chips. I am encouraging ambulation. We will stop her IV antibiotics this evening. cc: Brad Olivarez MD
[2017-03-04] MEDS: LOVENOX SUBQ SCH (13:06)
--- NOTE | 2017-03-04 15:57 | PROGRESS NOTE ---
DATE: 03/04/2017 SUBJECTIVE: This patient is lying on the bed comfortably. She is status post open low anterior colon resection. The sigmoid mass has been sent to pathology, pending results. This patient is NPO, just allowed to take ice chips. She is not complaining of pain at this moment. She was complaining about nausea in the morning. Her daughter was at the bedside and all of her questions were answered. OBJECTIVE: Vital Signs: Temperature 99.3 degrees, pulse 75, respiratory rate 15, blood pressure 157/59, oxygen saturation 95% on 2 L of nasal cannula. HEENT: Head normocephalic. No trauma. PERRLA. Neck: Supple. No JVD. No masses. Central trachea. Chest: Clear to auscultation. No wheezing. No rales. Abdomen: Soft. Mild tenderness to palpation at the level of the midportion of the abdomen. There is a surgical scar with a dressing with some serosanguineous material. Decreased bowel sounds. No signs of peritoneal irritation. Extremities: No edema. No clubbing. No cyanosis. Neurological: The patient is alert and oriented x3. No focal deficits. LABORATORY: WBC 8.8, hemoglobin 9.4, hematocrit 30.3, platelets 248,000. Sodium 139, potassium 4.1, chloride 103, bicarbonate 28, BUN 10, creatinine 1, glucose 187, calcium 8.4. ASSESSMENT AND PLAN: 1. Sigmoid mass status post low anterior colon resection. Postoperative day #1. Surgery department is following this patient closely. This patient remains NPO with just ice chips by mouth. Patient is complaining of just mild pain and nausea mostly in the morning. 2. Gastrointestinal bleed status post colonoscopy. AV malformation was found as well as the sigmoid mass. We will continue to follow. Hemoglobin and hematocrit have been stable. 3. Anemia of acute blood loss. Hemoglobin and hematocrit have been stable. 4. Multiple colonic polyps. Aware. 5. Extensive external hemorrhoids. Aware. 6. Atrial fibrillation. Currently rate controlled. 7. Hypertension. Blood pressure is stable. Continue with the same management for now. 8. Type 2 diabetes. Stable. Continue with the same treatment. 9. Gastrointestinal prophylaxis with Protonix. 10. Deep vein thrombosis prophylaxis. Continue with SCDs and Lovenox. cc: Sanjeev Alfaro MD
[2017-03-05] MEDS: HUMULIN R SUBQ SCH ×5 (02:07→21:30)
[2017-03-05] MEDS: COREG PO SCH ×3 (02:08→21:25)
[2017-03-05] MEDS: OFIRMEV 1000 MG/ISOTONIC SOLN 1,000 MG/100 ML BOTTLE IV SCH ×4 (04:41→21:29)
[2017-03-05 06:57] LABS: MANUAL DIFF NEEDED? NO
[2017-03-05 07:05] LABS: BASO% 0.1 % (0.0-0.8); EOS# 0.18 X1000 (0.0-0.7); EOS% 2.2 % (0.0-10.0); HEMOGLOBIN 9.1 g/dL (12.0-16.0); IMM GRAN# 0.02 X1000 (0.0-0.04); IMM GRAN% 0.2 % (0.0-0.5); LYMPH# 0.67 X1000 (1.2-3.4); LYMPH% 8.3 % (20.5-51.1); MCH 24.9 PG (27-31); MCHC 30.3 g/dL (33-37); MCV 82.2 FL (81-99); MONO# 0.41 X1000 (0.11-0.59); MONO% 5.1 % (1.7-9.3); NEUT% 84.1 % (42.2-75.2); PLT 251 X1000 (130-400); RBC 3.65 XMIL (4.2-5.4)
[2017-03-05 07:22] LABS: AGAP 10; ALBUMIN 2.7 g/dL (3.5-5.0); ALKALINE PHOSPHATASE 49 U/L (32-104); BUN 10 mg/dL (8-22); CALCIUM 8.7 mg/dL (8.8-10.2); CHLORIDE 103 mmol/L (98-107); COSMO 279; GOT 13 U/L (10-30); GPT 9 U/L (10-36); MAGNESIUM 1.6 mg/dL (1.5-2.7); POTASSIUM 3.7 mmol/L (3.5-5.1); SODIUM 139 mmol/L (136-145); TCO2 26 mmol/L (25-35); TOTAL BILIRUBIN 0.43 mg/dL (0.20-1.00); TOTAL PROTEIN 5.6 g/dL (6.3-8.3)
--- NOTE | 2017-03-05 09:04 | PROGRESS NOTE ---
DATE: 03/05/2017 SUBJECTIVE: She denies significant abdominal pain. No nausea or vomiting. She passed a little gas overnight. OBJECTIVE: She is afebrile. Vital signs are stable.General: She is alert and oriented x4. No acute distress. CV: Regular rate and rhythm. Respiratory: No work of breathing. GI: Soft, nondistended. She does have a few bowel sounds. Her incision is clean, dry, and intact. She has minimal tenderness. LABORATORY: White blood cell count 8, hemoglobin 9.1. Electrolytes reviewed and unremarkable. ASSESSMENT AND PLAN: A 77-year-old female, postop day 2, low anterior colon resection for rectal cancer. We will start her on a clear liquid diet and continue to encourage ambulation. We will remove her Chinchilla catheter today. Dr. Nunez will make rounds over the weekend. cc: Brad Olivarez MD
[2017-03-05] MEDS: LASIX PO SCH (09:06)
[2017-03-05] MEDS: LOVENOX SUBQ SCH (09:06)
[2017-03-05] MEDS: APRESOLINE PO SCH ×3 (09:07→21:25)
[2017-03-05] MEDS: MULTAQ PO SCH (09:07)
[2017-03-05] MEDS: DIOVAN PO SCH (09:07)
[2017-03-05] MEDS: LANTUS SUBQ SCH (09:11)
[2017-03-05] MEDS: PERIDEX MT SCH ×2 (09:12→21:26)
[2017-03-05] MEDS: PROTONIX IV SCH ×2 (09:12→21:26)
[2017-03-05] MEDS: ZOFRAN IV PRN (11:35)
--- NOTE | 2017-03-05 15:17 | PROGRESS NOTE ---
DATE: 03/05/2017 SUBJECTIVE: When I evaluated this patient she was sitting on a chair. She is not complaining of nausea, vomiting. No diarrhea. No constipation. No chest pain. Mild abdominal pain mostly at the level of the wound area. Her daughter was at the bedside and all their questions were answered. OBJECTIVE: Vital Signs: Temperature 98 degrees, pulse 76, respiratory rate 18, blood pressure 124/45, O2 saturation 98 on 3 L of nasal cannula. HEENT: Head normocephalic. No trauma. PERRLA. Neck: Supple. No JVD. No masses. Central trachea. Chest: Clear to auscultation. No wheezing. No rales. Abdomen: Soft, mild tenderness to palpation at the level of the wound area. There is a surgical scar with a dressing. No signs of peritoneal irritation. Extremities: No edema. No clubbing. No cyanosis. Neurological: The patient is alert and oriented x3. No focal deficits. LABORATORY: WBC 8, hemoglobin 9.1, hematocrit 30, platelets 251,000. Sodium 139, potassium 3.7, chloride 103, bicarbonate 26, BUN 10, creatinine 0.8. Glucose 142, calcium 8.7, phosphorus 2.1 and albumin 2.7. ASSESSMENT AND PLAN: 1. Sigmoid mass status post low anterior colon resection postoperative day #2. Surgery Department is following this patient. We will start this patient on clear liquid diet today to see how she does. The patient is complaining just of mild abdominal pain. She is nondistended. Positive bowel sounds. 2. Gastrointestinal bleed. Status post colonoscopy. AV malformation was found and also the sigmoid mass. We will continue to monitor the hemoglobin and hematocrit. 3. Anemia of acute blood loss. Hemoglobin and hematocrit has been stable. 4. Multiple colonic polyps. Aware. 5. Extensive external hemorrhoids. Aware. 6. Atrial fibrillation. Currently rate controlled. 7. Hypertension. Blood pressure is stable. Continue the same management. 8. Type 2 diabetes. Stable. Continue with the same treatment. 9. GERD. Continue with Protonix. cc: Sanjeev Alfaro MD
[2017-03-05] MEDS: REGLAN IV SCH ×2 (16:06→21:28)
--- NOTE | 2017-03-05 16:34 | PROGRESS NOTE ---
DATE: 03/05/2017 SUBJECTIVE: The patient states that she is slightly nauseated. She reports mild abdominal pain primarily at the incision. Her oral intake has been limited by the severe nausea. According to her daughter, she was awaiting to be scheduled for a gastric emptying study as her primary care provider suspected diabetic gastroparesis. Her daughter asked if this test can be done prior to her discharge in light of the fact that her mom has not been able to advance her diet post surgery. OBJECTIVE: Vital Signs: Blood pressure 124/45, pulse 76, respiration 18, temperature of 98.0 degrees. Pulmonary: Lungs are clear. Cardiovascular: She has regular rate and rhythm with no gallops or rubs. Abdomen: Reveals mild diffuse tenderness but no rebound or guarding. OBJECTIVE DATA: Remarkable for a hemoglobin of 9.1, with hematocrit of 30.0, and a white count of 8.09, with 251,000 platelets. Sodium is 139, potassium 3.7, chloride 103, CO2 26, BUN 10, creatinine 0.8, with a glucose of 142. Calcium is 8.7, phosphorus 2.1, magnesium 1.6, total bilirubin 0.43, AST 13, ALT 9, alkaline phosphatase 49, total protein 5.6, and albumin 2.7. IMPRESSION: 1. Nausea. 2. Adenocarcinoma of the colon. 3. Erosive gastritis on esophagogastroduodenoscopy. 4. Schatzki's ring. 5. Duodenitis. 6. Multiple colon polyps. RECOMMENDATION: 1. With regard to the nausea and epigastric discomfort, I recommend a trial of Reglan 5 mg IV q.6 hours. 2. Please obtain a dedicated gastric emptying study on Wednesday to confirm or refute the diagnosis of diabetic gastroparesis. 3. Continue Protonix 40 mg IV q.12 hours. 4. Continue Zofran for nausea. 5. I will discontinue the Phenergan for nausea as there is a direct drug interaction with Reglan. 6. Advance the diet as tolerated. 7. Additional recommendations to follow based on her gastric emptying study. cc: MD Mariah Patton MD Heather Shah, MD Omar J. Sosa-Chirinos, MD
[2017-03-05] MEDS: SODIUM CHLORIDE 0.9% INJ SCH (21:26)
[2017-03-05] MEDS: PRADAXA PO SCH (21:29)
[2017-03-06] MEDS: REGLAN IV SCH ×4 (04:20→20:43)
[2017-03-06] MEDS: OFIRMEV 1000 MG/ISOTONIC SOLN 1,000 MG/100 ML BOTTLE IV SCH ×4 (04:20→20:44)
[2017-03-06] MEDS: HUMULIN R SUBQ SCH ×3 (06:05→16:39)
[2017-03-06 06:41] LABS: MANUAL DIFF NEEDED? NO
[2017-03-06 06:46] LABS: BASO% 0.3 % (0.0-0.8); EOS# 0.41 X1000 (0.0-0.7); EOS% 5.6 % (0.0-10.0); HEMATOCRIT 28.9 % (37.0-47.0); HEMOGLOBIN 8.8 g/dL (12.0-16.0); IMM GRAN# 0.02 X1000 (0.0-0.04); IMM GRAN% 0.3 % (0.0-0.5); LYMPH# 0.66 X1000 (1.2-3.4); LYMPH% 9.1 % (20.5-51.1); MCH 25.4 PG (27-31); MCHC 30.4 g/dL (33-37); MCV 83.3 FL (81-99); MONO# 0.33 X1000 (0.11-0.59); MONO% 4.5 % (1.7-9.3); MPV 9.8 FL (7.4-10.4); NEUT% 80.2 % (42.2-75.2); PLT 270 X1000 (130-400); RBC 3.47 XMIL (4.2-5.4)
[2017-03-06 07:14] LABS: AGAP 13; ALBUMIN 2.8 g/dL (3.5-5.0); ALKALINE PHOSPHATASE 52 U/L (32-104); BUN 13 mg/dL (8-22); CALCIUM 8.3 mg/dL (8.8-10.2); CHLORIDE 104 mmol/L (98-107); COSMO 288; GOT 9 U/L (10-30); GPT 8 U/L (10-36); MAGNESIUM 1.7 mg/dL (1.5-2.7); POTASSIUM 3.7 mmol/L (3.5-5.1); SODIUM 144 mmol/L (136-145); TCO2 27 mmol/L (25-35); TOTAL BILIRUBIN 0.38 mg/dL (0.20-1.00); TOTAL PROTEIN 5.6 g/dL (6.3-8.3)
--- NOTE | 2017-03-06 07:55 | PROGRESS NOTE ---
DATE: 03/06/2017 SUBJECTIVE: Feels okay. Just sore at her incision. She is having bowel function. She is tolerating clear liquids but is getting full and somewhat nauseated. OBJECTIVE: Otherwise, afebrile. No changes in her vital signs. No tachycardia. Blood pressure 147/56. Incisions clean, dry, and intact. Abdomen is none not significantly distended. Appropriately tender. LABORATORY DATA: I reviewed her labs. Her white count normal at 7, hematocrit 28. Creatinine 0.8. ASSESSMENT: This is a 77-year-old female, status post low anterior resection. She is having bowel function, but does have some nausea. We will continue liquids today and gradually advance her diet as her fullness and nausea resolve. We will continue to follow along. cc: Den Ellis MD
[2017-03-06] MEDS: PRADAXA PO SCH ×2 (09:31→20:44)
[2017-03-06] MEDS: COREG PO SCH ×2 (09:32→20:44)
[2017-03-06] MEDS: LASIX PO SCH (09:33)
[2017-03-06] MEDS: DIOVAN PO SCH (09:33)
[2017-03-06] MEDS: MULTAQ PO SCH (09:33)
[2017-03-06] MEDS: PROTONIX IV SCH ×2 (09:34→20:43)
[2017-03-06] MEDS: PERIDEX MT SCH ×2 (09:34→20:43)
[2017-03-06] MEDS: APRESOLINE PO SCH ×3 (10:03→20:44)
[2017-03-06] MEDS: LANTUS SUBQ SCH (10:38)
--- NOTE | 2017-03-06 12:13 | PROGRESS NOTE ---
DATE: 03/06/2017 SUBJECTIVE: When I evaluated this patient she was sitting on a chair. She is tolerating food, but she has been having nausea. She is tolerating physical therapy. On Wednesday, she will have a gastric emptying study to rule out gastroparesis as per GI recommendations. She will be n.p.o. the night before the study. OBJECTIVE: Vital Signs: Temperature 98 degrees, pulse 82, respiratory rate 16, blood pressure 168/55, oxygen saturation 97% on 2 L of nasal cannula. HEENT: Normocephalic. No trauma. PERRLA. Neck: Supple. No JVD. No masses. Central trachea. Chest: Clear to auscultation. No wheezing. No rales. Abdomen: Soft. Mild tenderness to palpation at the level of the wound area. There is a surgical scar with a dressing that is clean. No signs of peritoneal irritation. Extremities: No edema. No clubbing. No cyanosis. Neurological: The patient is alert and oriented x3. No focal deficits. LABORATORY: WBC 7.2, hemoglobin 8.8, hematocrit 28.9, platelet 270. Sodium 144, potassium 3.7, chloride 104, bicarbonate 27, BUN 13, creatinine 0.8, glucose 118, calcium 8.3, phosphorus 2.2, albumin 2.8. ASSESSMENT AND PLAN: 1. Sigmoid mass status post low anterior colon resection postoperative day #3. Surgery Department is following this patient. This is likely related to a malignancy, continue with liquid diet for now. She has been having nausea. Gastroenterology Department placed this patient on Reglan schedule, and probably this patient will have gastric emptying study next Wednesday. 2. Gastrointestinal bleed, status post colonoscopy. 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 3. Anemia of acute blood loss. Hemoglobin and hematocrit have been stable. 4. Multiple colonic polyps. Aware. 5. Extensive external hemorrhoids. Aware. 6. Atrial fibrillation, currently rate controlled. This patient is on Pradaxa. 7. Hypertension. The blood pressure is elevated. I will increase the dose of hydralazine. 8. Type 2 diabetes, stable. Continue with the same management. 9. Gastroesophageal reflux disease. Continue with proton pump inhibitors. cc: Sanjeev Alfaro MD
[2017-03-06] MEDS: SODIUM CHLORIDE 0.9% INJ SCH (20:44)
[2017-03-07] MEDS: REGLAN IV SCH ×4 (01:11→20:23)
[2017-03-07] MEDS: HUMULIN R SUBQ SCH ×5 (01:12→20:25)
[2017-03-07] MEDS: OFIRMEV 1000 MG/ISOTONIC SOLN 1,000 MG/100 ML BOTTLE IV SCH ×6 (01:13→22:36)
[2017-03-07] MEDS: ZOFRAN IV PRN ×2 (06:32→09:44)
[2017-03-07 06:58] LABS: MANUAL DIFF NEEDED? NO
[2017-03-07 07:23] LABS: BASO% 0.5 % (0.0-0.8); EOS# 0.33 X1000 (0.0-0.7); HEMATOCRIT 29.8 % (37.0-47.0); HEMOGLOBIN 9.1 g/dL (12.0-16.0); IMM GRAN# 0.04 X1000 (0.0-0.04); IMM GRAN% 0.6 % (0.0-0.5); LYMPH# 0.53 X1000 (1.2-3.4); LYMPH% 8.1 % (20.5-51.1); MCH 25.2 PG (27-31); MCHC 30.5 g/dL (33-37); MCV 82.5 FL (81-99); MONO# 0.27 X1000 (0.11-0.59); MONO% 4.1 % (1.7-9.3); MPV 9.9 FL (7.4-10.4); NEUT% 81.7 % (42.2-75.2); PLT 272 X1000 (130-400); RBC 3.61 XMIL (4.2-5.4)
[2017-03-07 07:34] LABS: AGAP 13; ALBUMIN 2.8 g/dL (3.5-5.0); ALKALINE PHOSPHATASE 73 U/L (32-104); BUN 12 mg/dL (8-22); CALCIUM 8.5 mg/dL (8.8-10.2); CHLORIDE 103 mmol/L (98-107); COSMO 285; GOT 20 U/L (10-30); GPT 11 U/L (10-36); MAGNESIUM 1.6 mg/dL (1.5-2.7); POTASSIUM 3.5 mmol/L (3.5-5.1); SODIUM 142 mmol/L (136-145); TCO2 26 mmol/L (25-35); TOTAL BILIRUBIN 0.43 mg/dL (0.20-1.00); TOTAL PROTEIN 5.6 g/dL (6.3-8.3)
--- NOTE | 2017-03-07 08:50 | PROGRESS NOTE ---
DATE: 03/07/2017 SUBJECTIVE: She has had some nausea and low volume emesis overnight. No abdominal pain. She continued to pass some gas from below. OBJECTIVE: No fevers. Heart rate has been in the 70s overnight, blood pressure 181/68 this morning. Oxygen saturation 98% on 2 L. Abdomen is soft, appropriately tender. Wound looks okay. Labs: White count is normal at 6, hematocrit is 29. Potassium is low at 3.5. Magnesium is low at 1.6. Creatinine is 0.6. ASSESSMENT/PLAN: A 77-year-old female, status post low anterior resection. She has got a bit of an ileus that has been slow to resolve. We will monitor her. If she continues to vomit, she will need an nasogastric tube. I have given her some intravenous magnesium and intravenous potassium this morning to help with resolution of her ileus. We will continue to follow along. cc: Den Ellis MD
[2017-03-07] MEDS ORDERED: MAGNESIUM SULFATE 4 GM/S.W.I. 4 GM/100 ML IVPB IV ONE (09:00)
[2017-03-07] MEDS ORDERED: NS 500 ML ONE (09:41)
[2017-03-07] MEDS: POTASSIUM CHLORIDE 40 MEQ in NS 250 ML IV SCH ×2 (09:43→17:48)
[2017-03-07] MEDS: SODIUM CHLORIDE 0.9% INJ SCH ×2 (09:44→20:24)
[2017-03-07] MEDS: PROTONIX IV SCH ×2 (09:44→20:23)
[2017-03-07] MEDS: MULTAQ PO SCH (09:45)
[2017-03-07] MEDS: COREG PO SCH ×2 (09:45→20:24)
[2017-03-07] MEDS: LANTUS SUBQ SCH (09:45)
[2017-03-07] MEDS: DIOVAN PO SCH (09:45)
[2017-03-07] MEDS: APRESOLINE PO SCH ×3 (09:45→20:24)
[2017-03-07] MEDS: PERIDEX MT SCH ×3 (09:45→20:23)
[2017-03-07] MEDS: LASIX PO SCH (09:46)
[2017-03-07] MEDS: PRADAXA PO SCH ×2 (09:46→20:25)
[2017-03-07] MEDS: CATAPRES PO SCH ×2 (10:47→20:24)
--- NOTE | 2017-03-07 12:01 | Diag Imaging Result Doc PS360 ---
CHEST-PORTABLE - 03/07/2017 INDICATION: shortness of breath TECHNIQUE: COMPARISON: 03/02/2017 FINDINGS: Stable cardiomegaly. Lung volumes are much lower. Accounting for this, no significant infiltrates. Pulmonary vascularity remains distended. IMPRESSION: Lower lung volumes. Stable cardiomegaly and pulmonary vascular congestion. Electronically signed by Everett Gao 03/07/2017 11:59 AM
--- NOTE | 2017-03-07 12:15 | PROGRESS NOTE ---
DATE: 03/07/2017 SUBJECTIVE: This patient is complaining of nausea on and off today. I do believe that this patient has post surgical ileus. I will put this patient back on Reglan 5 IV q.6 hours just 3 doses to see if that helps. She is still having a cough. I will ask for an x-ray. OBJECTIVE: Vital Signs: Temperature 98.6 degrees, pulse 96, respiratory rate 19, blood pressure 181/68, oxygen saturation 98 on 2 L of nasal cannula. HEENT: Head normocephalic. No trauma. PERRLA. Neck: Supple. No JVD. No masses. Central trachea. Chest: Clear to auscultation. No wheezing. No rales. Abdomen: Soft. Mild tenderness to palpation at the level of the wound area. Mildly distended. Decreased bowel sounds. Surgical scar with a dressing that is clean. No signs of peritoneal irritation. Extremities: No edema. No clubbing. No cyanosis. Neurological: The patient is alert and oriented x3. No focal deficits. LABORATORY: WBC 6.5, hemoglobin 9.1, hematocrit 29.8, platelets 272,000. Sodium 142, potassium 3.5, chloride 103, bicarbonate 26, BUN 12, creatinine 0.6, glucose 132, calcium 8.5, phosphorus 2.1, magnesium 1.6, albumin 2.8. ASSESSMENT AND PLAN: 1. Sigmoid mass status post lower anterior colon resection. Postoperative day #4. Surgery department is following this patient. This is likely related to malignancy. Continue with the same management for now. She has been having nausea. I will continue with Reglan but since she is not tolerating p.o. medication I will put it IV for 3 doses. 2. Abdominal distention. Probably this patient has an ileus. Surgery department is following this patient closely. 3. Gastrointestinal bleed status post colonoscopy. An AV malformation was found and also the sigmoid mass. 4. Anemia of acute blood loss. Hemoglobin and hematocrit have been stable. 5. Multiple colonic polyps. Aware. 6. Extensive external hemorrhoids. Aware. 7. Atrial fibrillation. Currently rate controlled. This patient is on Pradaxa. 8. Hypertension. The blood pressure is elevated. I will add clonidine to her blood pressure medication. 9. Type 2 diabetes, stable. Continue with the same management. 10. Gastroesophageal reflux disease. Continue with PPIs. cc: Sanjeev Alfaro MD
[2017-03-08] MEDS: OFIRMEV 1000 MG/ISOTONIC SOLN 1,000 MG/100 ML BOTTLE IV SCH ×5 (04:36→23:14)
[2017-03-08] MEDS: REGLAN IV SCH (04:37)
[2017-03-08] MEDS: HUMULIN R SUBQ SCH ×4 (07:05→21:19)
[2017-03-08 07:18] LABS: MANUAL DIFF NEEDED? NO
[2017-03-08 07:25] LABS: BASO% 0.2 % (0.0-0.8); EOS# 0.42 X1000 (0.0-0.7); EOS% 7.8 % (0.0-10.0); HEMATOCRIT 29.4 % (37.0-47.0); IMM GRAN# 0.04 X1000 (0.0-0.04); IMM GRAN% 0.7 % (0.0-0.5); LYMPH# 0.62 X1000 (1.2-3.4); LYMPH% 11.5 % (20.5-51.1); MCH 25.3 PG (27-31); MCHC 30.6 g/dL (33-37); MCV 82.6 FL (81-99); MONO# 0.31 X1000 (0.11-0.59); MONO% 5.8 % (1.7-9.3); MPV 9.6 FL (7.4-10.4); PLT 281 X1000 (130-400); RBC 3.56 XMIL (4.2-5.4)
[2017-03-08 08:04] LABS: AGAP 12; ALKALINE PHOSPHATASE 90 U/L (32-104); BUN 14 mg/dL (8-22); CALCIUM 8.5 mg/dL (8.8-10.2); CHLORIDE 104 mmol/L (98-107); COSMO 283; GOT 44 U/L (10-30); GPT 20 U/L (10-36); POTASSIUM 4.1 mmol/L (3.5-5.1); SODIUM 141 mmol/L (136-145); TCO2 25 mmol/L (25-35); TOTAL BILIRUBIN 0.35 mg/dL (0.20-1.00)
[2017-03-08] MEDS: LANTUS SUBQ SCH (08:58)
[2017-03-08] MEDS: APRESOLINE PO SCH ×3 (10:50→21:19)
[2017-03-08] MEDS: COREG PO SCH ×2 (10:51→21:19)
[2017-03-08] MEDS: LASIX PO SCH (10:51)
[2017-03-08] MEDS: DIOVAN PO SCH (10:51)
[2017-03-08] MEDS: MULTAQ PO SCH (10:51)
[2017-03-08] MEDS: CATAPRES PO SCH ×2 (10:51→21:19)
[2017-03-08] MEDS: PERIDEX MT SCH ×2 (10:52→21:18)
[2017-03-08] MEDS: PRADAXA PO SCH ×2 (11:21→21:18)
[2017-03-08] MEDS: PROTONIX IV SCH ×2 (11:22→21:18)
--- NOTE | 2017-03-08 12:00 | PROGRESS NOTE ---
DATE: 03/08/2017 SUBJECTIVE: The patient is resting comfortably in bed. She has no complaints. She denies having any abdominal pain, nausea, or vomiting. OBJECTIVE: Vital Signs: Temperature 98.6 degrees, blood pressure 178/70, heart rate 75, respirations 18, O2 saturations 96% on 2 L nasal cannula. General: This is an elderly female, lying in bed, in no acute distress. Head: Normocephalic, atraumatic. Heart: S1, S2. Normal. Regular rate and rhythm. Lungs: Clear to auscultation bilaterally. No wheezes. No rales. No rhonchi. Abdomen: Positive bowel sounds. Soft, nontender, nondistended. Extremities: No edema. No cyanosis. No calf tenderness. Neurologic: The patient is alert and oriented x3. LABS: CBC: White blood cell count 5.3, hemoglobin 9, hematocrit 29, platelets 81,000. Chem: Sodium 141, potassium 4.1, chloride 104, CO2 25, BUN 14, creatinine 0.6, glucose 118, calcium 8.5, phosphorus 2, albumin 3. ASSESSMENT AND PLAN: 1. Status post lower anterior colon resection secondary to a sigmoid mass. The pathology report is currently pending. GI and General Surgery are following. 2. Nausea. This appears to have improved. The patient is scheduled for a gastric emptying study today. 3. Anemia of acute blood loss. The patient's hemoglobin and hematocrit are stable. 4. Multiple colonic polyps. Aware. 5. Extensive internal and external hemorrhoids. Aware. 6. Atrial fibrillation. The patient is currently rate controlled. We will continue on the current cardiac medications. 7. Hypotension. We will continue to adjust the patient's antihypertensives. The patient's blood pressure is a little more elevated today. 8. Diabetes mellitus type 2. Continue on sliding scale insulin. 9. Gastroesophageal reflux disease. Continue with Protonix. 10. We will consult physical therapy. cc: Alia Reyes MD
[2017-03-08] MEDS: NEUTRA-PHOS PO SCH ×3 (14:09→21:19)
--- NOTE | 2017-03-08 16:39 | Diag Imaging Result Doc PS360 ---
EXAM: GASTRIC EMPTYING INDICATION: nausea with vomiting TECHNIQUE: 544 uCi of technetium 99 sulfur colloid was administered orally with an egg sandwich. COMPARISON: None. FINDINGS: There is normal-appearing activity is seen initially in the gastric lumen. The time to one half emptying is 85.6 minutes. At 120 minutes, there was 76% emptying. IMPRESSION: Normal gastric emptying study. Electronically signed by Luis Cedillo 03/08/2017 4:37 PM
[2017-03-08] MEDS: SODIUM CHLORIDE 0.9% INJ SCH (21:18)
[2017-03-08] MEDS: ZOFRAN IV PRN (21:30)
--- NOTE | 2017-03-09 02:40 | PROGRESS NOTE ---
DATE: 03/08/2017 SUBJECTIVE: The patient states that she is feeling better today. She was able to sit up in the chair for 2 hours. She notes that she is eating more and she is feeling stronger. Her gastric emptying study was normal. She denies nausea with vomiting. On exam, her blood pressure is 181/68, pulse 79, respiration 18, temperature of 98.1 degrees. OBJECTIVE DATA: Hemoglobin of 9.0, with hematocrit of 29.4, and white count of 5.39. She has 281,000 platelets. Sodium is 141, potassium 4.1, chloride 104, CO2 of 25, BUN 14, creatinine 0.6, with a glucose of 118. Calcium is 8.5, phosphorus 2.0, magnesium 2.0, total bilirubin 0.35, AST 44, ALT 20, alkaline phosphatase 90, total protein 6.0, with an albumin of 3.0. IMPRESSION: 1. Nausea with vomiting, resolved. 2. Sigmoid colon mass, likely adenocarcinoma, with pathology currently pending. 3. Anemia, stable. 4. Multiple colon polyps. 5. Internal and external hemorrhoids. 6. Gastroesophageal reflux disease. RECOMMENDATION: 1. Continue current management. 2. Await pathology results. 3. Continue to advance her diet as tolerated. 4. Additional recommendations to follow based on her clinical course. cc: MD Alia Patton MD Faye Wilson, MD
[2017-03-09] MEDS: HUMULIN R SUBQ SCH ×4 (06:17→23:41)
[2017-03-09 08:07] LABS: BASO% 0.9 % (0.0-0.8); EOS# 0.49 X1000 (0.0-0.7); EOS% 10.6 % (0.0-10.0); HEMATOCRIT 29.4 % (37.0-47.0); HEMOGLOBIN 8.7 g/dL (12.0-16.0); IMM GRAN# 0.06 X1000 (0.0-0.04); IMM GRAN% 1.3 % (0.0-0.5); LYMPH# 0.76 X1000 (1.2-3.4); LYMPH% 16.4 % (20.5-51.1); MANUAL DIFF NEEDED? YES; MCH 24.4 PG (27-31); MCHC 29.6 g/dL (33-37); MCV 82.6 FL (81-99); MONO# 0.38 X1000 (0.11-0.59); MONO% 8.2 % (1.7-9.3); MPV 10.6 FL (7.4-10.4); NEUT% 62.6 % (42.2-75.2); PLT 246 X1000 (130-400); RBC 3.56 XMIL (4.2-5.4)
[2017-03-09 08:09] LABS: AGAP 13; ALBUMIN 2.8 g/dL (3.5-5.0); ALKALINE PHOSPHATASE 99 U/L (32-104); BUN 13 mg/dL (8-22); CALCIUM 8.5 mg/dL (8.8-10.2); CHLORIDE 100 mmol/L (98-107); COSMO 280; GOT 50 U/L (10-30); GPT 24 U/L (10-36); MAGNESIUM 1.8 mg/dL (1.5-2.7); POTASSIUM 4.4 mmol/L (3.5-5.1); SODIUM 140 mmol/L (136-145); TCO2 27 mmol/L (25-35); TOTAL BILIRUBIN 0.36 mg/dL (0.20-1.00); TOTAL PROTEIN 5.7 g/dL (6.3-8.3)
[2017-03-09] MEDS: APRESOLINE PO SCH ×3 (09:30→22:53)
[2017-03-09] MEDS: SODIUM CHLORIDE 0.9% INJ SCH ×2 (09:30→22:52)
[2017-03-09] MEDS: COREG PO SCH ×2 (09:30→22:53)
[2017-03-09] MEDS: NEUTRA-PHOS PO SCH ×2 (09:30→16:43)
[2017-03-09] MEDS: LASIX PO SCH (09:30)
[2017-03-09] MEDS: PROTONIX IV SCH ×2 (09:30→22:52)
[2017-03-09] MEDS: PERIDEX MT SCH ×3 (09:30→22:57)
[2017-03-09] MEDS: DIOVAN PO SCH (09:30)
[2017-03-09] MEDS: MULTAQ PO SCH (09:30)
[2017-03-09] MEDS: CATAPRES PO SCH ×2 (09:30→22:53)
[2017-03-09] MEDS: PRADAXA PO SCH ×2 (09:30→22:53)
--- NOTE | 2017-03-09 09:41 | PROGRESS NOTE ---
DATE: 03/09/2017 SUBJECTIVE: The patient denies abdominal pain. She does have some nausea intermittently. No emesis overnight. She had a bowel movement two days ago. She is passing a little gas. OBJECTIVE: She is afebrile. Vital signs are stable. General: She is alert and oriented x4. No acute distress. CV: Regular rate and rhythm. Respiratory: No work of breathing. GI soft, non distended. She is mildly tender. No rebound or guarding. She does have a few bowel sounds. LABORATORY: CBC and complete metabolic profile reviewed and unremarkable. ASSESSMENT AND PLAN: A 77-year-old female, status post low anterior resection with some postoperative nausea and bloating. She is scheduled for a gastric emptying study today, and we are awaiting those results. cc: Brad Olivarez MD
[2017-03-09 10:05] LABS: BANDS 8 % (0-1); EOS 4 % (1-10); LYMPHS 20 % (21-51); MONO 4 % (1-9)
[2017-03-09] MEDS: OFIRMEV 1000 MG/ISOTONIC SOLN 1,000 MG/100 ML BOTTLE IV SCH ×3 (13:05→22:49)
--- NOTE | 2017-03-09 13:53 | PROGRESS NOTE ---
DATE: 03/09/2017 SUBJECTIVE: The patient is now having alot of diarrhea. OBJECTIVE: Vital Signs: Temperature 98 degrees, blood pressure 144/58, heart rate 71, respirations 16, O2 saturation 96% on 2 L nasal cannula. General: This is an elderly female, lying in bed, in no acute distress. Head: Normocephalic, atraumatic. Heart: S1, S2. Normal. Regular rate and rhythm. Lungs: Clear to auscultation bilaterally. No wheezes. No rales. No rhonchi. Abdomen: Positive bowel sounds. Soft, nontender, nondistended. Extremities: No edema. No cyanosis. No calf tenderness. Neurologic: The patient is alert and oriented x3. LABS: White blood cell count 4.6, hemoglobin 8.7, hematocrit 29, platelets 246, 000. Sodium 140, potassium 4.4, chloride 100, CO2 27, BUN 13, creatinine 0.6, glucose 104. ASSESSMENT AND PLAN: 1. Status post low anterior colon resection secondary to a sigmoid mass. We are currently awaiting the pathology report. 2. Diarrhea. Will order stool studies. 3. Anemia of acute blood loss. The patient's hemoglobin and hematocrit are stable. 4. Multiple colonic polyps. Aware. 5. Extensive external hemorrhoids. Aware. 6. Atrial fibrillation. Continue on the current cardiac medications. 7. Diabetes mellitus type 2. Continue on sliding scale insulin. 8. Gastroesophageal reflux disease. Continue on Protonix. 9. Continue with physical therapy. cc: Alia Reyes MD MTDD
[2017-03-09] MEDS: LANTUS SUBQ SCH (14:06)
--- NOTE | 2017-03-09 15:46 | PROGRESS NOTE ---
DATE: 03/09/2017 SUBJECTIVE: The patient complains of frequent diarrhea today. No severe abdominal pain. No nausea. She is tolerating a liquid diet. OBJECTIVE: Vital Signs: She is afebrile. Vital signs are stable. General: She is alert and oriented x4. No acute distress. Gastrointestinal: Soft, nondistended. Minimally tender. Incision is clean, dry, and intact. LABORATORY: White blood cell count 4.6, hemoglobin 8.7. Electrolytes reviewed and unremarkable. ASSESSMENT/PLAN: A 77-year-old female, status post low anterior resection for rectal cancer. The pathology is pending. She now is having a lot of diarrhea. Her stool is being studied for Clostridium difficile. I am going to advance her to a soft diet as tolerated. cc: Brad Olivarez MD
[2017-03-10] MEDS: OFIRMEV 1000 MG/ISOTONIC SOLN 1,000 MG/100 ML BOTTLE IV SCH ×2 (04:53→09:59)
[2017-03-10 07:22] LABS: BASO% 0.7 % (0.0-0.8); EOS# 0.33 X1000 (0.0-0.7); EOS% 7.2 % (0.0-10.0); HEMATOCRIT 28.2 % (37.0-47.0); HEMOGLOBIN 8.6 g/dL (12.0-16.0); LYMPH# 0.71 X1000 (1.2-3.4); LYMPH% 15.5 % (20.5-51.1); MANUAL DIFF NEEDED? YES; MCH 25.4 PG (27-31); MCHC 30.5 g/dL (33-37); MCV 83.4 FL (81-99); MONO# 0.43 X1000 (0.11-0.59); MONO% 9.4 % (1.7-9.3); NEUT% 67.2 % (42.2-75.2); PLT 251 X1000 (130-400); RBC 3.38 XMIL (4.2-5.4)
[2017-03-10 07:40] LABS: AGAP 9; ALBUMIN 2.9 g/dL (3.5-5.0); ALKALINE PHOSPHATASE 85 U/L (32-104); BUN 16 mg/dL (8-22); CALCIUM 8.3 mg/dL (8.8-10.2); CHLORIDE 99 mmol/L (98-107); COSMO 276; GOT 20 U/L (10-30); GPT 16 U/L (10-36); MAGNESIUM 1.6 mg/dL (1.5-2.7); POTASSIUM 3.9 mmol/L (3.5-5.1); SODIUM 136 mmol/L (136-145); TCO2 28 mmol/L (25-35); TOTAL BILIRUBIN 0.33 mg/dL (0.20-1.00); TOTAL PROTEIN 5.5 g/dL (6.3-8.3)
[2017-03-10] MEDS: HUMULIN R SUBQ SCH ×4 (07:48→21:55)
[2017-03-10 08:45] LABS: EOS 4 % (1-10); LYMPHS 14 % (21-51); MONO 6 % (1-9)
[2017-03-10] MEDS: PERIDEX MT SCH ×2 (09:59→21:55)
[2017-03-10] MEDS: LASIX PO SCH (09:59)
[2017-03-10] MEDS: PRADAXA PO SCH ×2 (09:59→21:55)
[2017-03-10] MEDS: APRESOLINE PO SCH ×3 (09:59→21:55)
[2017-03-10] MEDS: CATAPRES PO SCH ×2 (09:59→21:55)
[2017-03-10] MEDS: DIOVAN PO SCH (09:59)
[2017-03-10] MEDS: COREG PO SCH ×2 (10:00→21:55)
[2017-03-10] MEDS: LANTUS SUBQ SCH (10:00)
[2017-03-10] MEDS: MULTAQ PO SCH (10:00)
[2017-03-10] MEDS: PROTONIX IV SCH ×2 (10:00→21:55)
[2017-03-10] MEDS: SODIUM CHLORIDE 0.9% INJ SCH ×2 (10:00→21:55)
[2017-03-10] MEDS ORDERED: MAGNESIUM SULFATE 2 GM/S.W.I. 2 GM/50 ML IVPB IV ONE (13:30)
[2017-03-10] MEDS ORDERED: NORCO-7.5 PO PRN (15:02)
--- NOTE | 2017-03-10 15:06 | PROGRESS NOTE ---
DATE: 03/10/2017 SUBJECTIVE: The patient is resting comfortably in bed. She states that her diarrhea has resolved. She ate all of her breakfast this morning. OBJECTIVE: Vital Signs: Temperature 98 degrees, blood pressure 106/37, heart rate 73, respiration is 22, O2 saturations 96% on 2 L nasal cannula. General: This is an elderly female, lying in bed, in no acute distress. Head: Normocephalic, atraumatic. Heart: S1, S2. Normal. Regular rate and rhythm. Lungs: Clear to auscultation bilaterally. Abdomen: Positive bowel sounds. Soft, nontender, nondistended. Extremities: No edema. No cyanosis. Neurologic: The patient is alert and oriented x3. LABS: Sodium 136, potassium 3.9, chloride 99, CO2 28, BUN 16, creatinine 0.9. Hemoglobin 8.6, hematocrit 28, white blood cell count 4.5, platelets 251,000. ASSESSMENT AND PLAN: 1. Status post colon resection secondary to a sigmoid mass. The pathology report is currently pending. 2. Anemia of acute blood loss. Resolved. The patient's hemoglobin and hematocrit is stable. 3. Multiple colonic polyps. Aware. 4. Extensive external hemorrhoids. Aware. 5. Atrial fibrillation. The patient is currently rate controlled. Continue on the current cardiac medications. 6. Diabetes mellitus type 2. Continue on sliding scale insulin. 7. Gastroesophageal reflux disease. Continue on Protonix. 8. Continue with physical therapy. cc: Alia Reyes MD
--- NOTE | 2017-03-10 15:23 | PROGRESS NOTE ---
DATE: 03/10/2017 SUBJECTIVE: She is feeling better, with less diarrhea. No significant pain. She is tolerating a diet and having bowel movements. OBJECTIVE: Vital Signs: She is afebrile. Vital signs are stable. General: She is alert and oriented x3. In no acute distress. Respiratory: No work of breathing. Gastrointestinal: Soft, nontender, nondistended. Incision clean, dry, and intact. LABORATORY: Her CBC and metabolic profile were reviewed and unremarkable. Her path report is still pending. ASSESSMENT AND PLAN: This is a 77-year-old female, status post low anterior resection for a rectal mass, likely cancer. She is making significant progress. I think she could probably be discharged in the next day or so, and follow up with me next week. I am going to change her to oral pain medicines. cc: Brad Olivarez MD
[2017-03-11] MEDS: PERIDEX MT SCH ×3 (04:56→21:56)
[2017-03-11] MEDS: HUMULIN R SUBQ SCH ×4 (06:34→21:55)
[2017-03-11] MEDS: PROTONIX IV SCH (08:53)
[2017-03-11] MEDS: PRADAXA PO SCH ×2 (08:53→21:55)
[2017-03-11] MEDS: COREG PO SCH ×2 (08:53→21:55)
[2017-03-11] MEDS: SODIUM CHLORIDE 0.9% INJ SCH (08:53)
[2017-03-11] MEDS: CATAPRES PO SCH ×2 (08:53→21:55)
[2017-03-11] MEDS: LASIX PO SCH (08:53)
[2017-03-11] MEDS: MULTAQ PO SCH (08:54)
[2017-03-11] MEDS: DIOVAN PO SCH (08:54)
[2017-03-11] MEDS: LANTUS SUBQ SCH (08:54)
[2017-03-11] MEDS: APRESOLINE PO SCH (08:54)
[2017-03-11] MEDS: MIRALAX PO SCH ×2 (10:33→21:55)
--- NOTE | 2017-03-11 13:51 | PROGRESS NOTE ---
DATE: 03/11/2017 SUBJECTIVE: The patient is resting comfortably in bed. She is tolerating her diet without any difficulty. OBJECTIVE: Vital Signs: Temperature 98 degrees, blood pressure 112/49, heart rate 76, respirations 20, O2 saturations 98% on 2 L nasal cannula. General: This is an elderly female, lying in bed, in no acute distress. Head: Normocephalic, atraumatic. Heart: S1, S2 normal. Lungs: Clear to auscultation bilaterally. No crackles. No rales. Abdomen: Positive bowel sounds. Soft, nontender, nondistended. Extremities: No edema. No cyanosis. No calf tenderness. Neurologic: The patient is alert oriented x3. LABS: White blood cell count 4.5, hemoglobin 8.6, hematocrit 28, platelets 251, 000. Sodium 136, potassium 3.9, chloride 99, CO2 28, BUN 16, creatinine 0.9, glucose 144. ASSESSMENT AND PLAN: 1. Colon cancer. Will await further recommendations from Dr. Acuña regarding treatment. 2. Status post colon resection secondary to sigmoid mass, stable. 3. Multiple colonic polyps, aware. 4. Atrial fibrillation. The patient is currently rate controlled. 5. Diabetes mellitus type 2. Continue on sliding scale insulin. 6. Gastroesophageal reflux disease. Continue on Protonix. DISPOSITION: We plan on discharging the patient home tomorrow if okay with Dr. Acuña. cc: Alia Reyes MD [facility]
--- NOTE | 2017-03-11 18:06 | PROGRESS NOTE ---
DATE: 03/11/2017 SUBJECTIVE: She denies abdominal pain, nausea, or vomiting. She is passing gas. She is eating a soft diet. OBJECTIVE: Vital Signs: She is afebrile. Vital signs are stable. General: She is alert and oriented x3, in no acute distress. Gastrointestinal: Soft, nondistended, nontender incision is intact without erythema. There is some slight serous drainage near the umbilicus. IMAGING STUDIES: Pathology report reveals a rectal cancer with 2 positive lymph nodes. She has negative margins. ASSESSMENT/PLAN: A 77-year-old female with locally advanced rectal cancer status post low anterior resection. She overall seems to be recovering from surgery well. Plans are for discharge tomorrow. We will go ahead and remove every other staple today. cc: Brad Olivarez MD
[2017-03-11] MEDS: PROTONIX PO SCH (21:55)
[2017-03-12] MEDS: PROTONIX IV SCH (01:58)
--- NOTE | 2017-03-12 04:48 | PROGRESS NOTE ---
DATE: 03/11/2017 SUBJECTIVE: Today, the patient's biopsy report determined that she has stage T3PN1b adenocarcinoma of the colon, with invasion through the muscularis propria, and focal involvement of the adjacent fibrofatty connective tissue, with 2 of 21 lymph nodes positive for metastatic disease. The patient remains in sedentary, but she is willing to increase her activity. She states that she is ready to go home, although the primary service and her family are encouraging her to go to rehab. I discussed with her the importance of physical therapy and exercise, as well as strengthening. She said that she will consider rehab again. I also discussed with her children the need to have screening colonoscopies, given that their mother is diagnosed with colon cancer. She has remaining colon polyps, but in light of the findings, she states that she does not want to undergo a repeat colonoscopy. Therefore, I will sign off at this time. If she changes her mind or her clinical course improves, I would be happy to reconsider a colonoscopy in the future. She should return to our office on an as needed basis. Thank you for allowing me to participate in her care. cc: MD Alia Patton MD Jason R. Seale, MD Faye Wilson, MD
[2017-03-12] MEDS: HUMULIN R SUBQ SCH (06:49)
[2017-03-12 07:29] VITALS: BP 131/55
[2017-03-12] MEDS: MULTAQ PO SCH (08:25)
[2017-03-12] MEDS: PROTONIX PO SCH (08:25)
[2017-03-12] MEDS: CATAPRES PO SCH (08:25)
[2017-03-12] MEDS: COREG PO SCH (08:25)
[2017-03-12] MEDS: PRADAXA PO SCH (08:25)
[2017-03-12] MEDS: LASIX PO SCH (08:25)
[2017-03-12] MEDS: LANTUS SUBQ SCH (08:25)
[2017-03-12] MEDS: DIOVAN PO SCH (08:25)
[2017-03-12] MEDS: MIRALAX PO SCH (08:26)
[2017-03-12] MEDS: PERIDEX MT SCH (08:26)
[2017-03-12 10:22] LABS: HEMATOCRIT 27.9 % (37.0-47.0); HEMOGLOBIN 8.5 g/dL (12.0-16.0)
--- NOTE | 2017-03-12 12:31 | PROGRESS NOTE ---
DATE: 03/12/2017 SUBJECTIVE: The patient denies nausea, vomiting abdominal pain. She is eating. She did have some dark blood in her stool last night. OBJECTIVE: Vital Signs: She is afebrile. Vital signs are stable. General: She is awake and alert in no acute distress. CV: Regular rate and rhythm. Respiratory: No work of breathing. GI: Soft, nontender, nondistended. Incision is clean, dry, and intact without erythema. LABORATORY: Hemoglobin 8.5, hematocrit 27.9. ASSESSMENT/PLAN: A 77-year-old female, status post low anterior resection for rectal cancer. She is doing well. Despite the blood in her bowel movements, her hemoglobin and hematocrit is stable. I suspect this is old blood related to the anastomosis. I think she is safe for discharge. She can follow up with me next week for a wound check. cc: Brad Olivarez MD
--- NOTE | 2017-03-12 14:58 | PROGRESS NOTE ---
DATE: 03/12/2017 SUBJECTIVE: Ms. Burnett has no acute complaints today. OBJECTIVE: VITAL SIGNS: Temperature 98.1 degrees, heart rate 91, respirations 16, blood pressure 131/55, O2 saturation 98% on 2 L nasal cannula. LABS: Hemoglobin and hematocrit 8.5, 27.9 today. PHYSICAL EXAMINATION: Cardiovascular: Regular rate and rhythm. S1-S2 heard. Respiratory: Clear to auscultation. Abdomen: Soft, nondistended, nontender. Positive bowel sounds. Extremities: Some trace bilateral extremity edema. ASSESSMENT AND PLAN: 1. Colon cancer. Reviewed surgical pathology with the patient. She has stage PT3/pN1b disease per the pathology report. The patient has expressed that she does not have much interest in proceeding with any chemotherapy. However, we will have the patient follow up with us as an outpatient for further discussion. It appears that she is likely going to be discharged today. Will make sure that this appointment gets set up as an outpatient. 2. Status post resection for rectal cancer. She will continue to follow with Surgery as scheduled. Dictated by AILIN Borges for Ananya Acuña MD cc: Ananya Acuña MD
--- NOTE | 2017-03-12 21:38 | DISCHARGE SUMMARY ---
ADMISSION DATE: 02/24/2017 DISCHARGE DATE: 03/12/2017 FINAL DISCHARGE DIAGNOSES: 1. Gastrointestinal bleed. 2. Stage III adenocarcinoma of the colon. 3. Status post open low anterior colon resection. 4. Acute kidney injury. 5. Diabetes mellitus type 2. 6. Iron-deficiency anemia. 7. Morbid obesity. 8. Hypertension. 9. Paroxysmal atrial fibrillation. 10. Debility. CONSULTATIONS REQUESTED DURING THIS HOSPITAL STAY: 1. GI consultation with Dr. Lozano. 2. General Surgery consultation with Dr. Olivarez. 3. Oncology consultation with Dr. Acuña. PROCEDURES PERFORMED DURING THIS HOSPITAL STAY: 1. EGD performed on 02/26/2017 revealed a hiatal hernia, mild erosive gastritis, mild duodenitis, Schatzki's ring. 2. Colonoscopy on 02/26/2017 revealed multiple sessile colonic polyps, incomplete examination secondary to poor bowel prep, grade 3 internal hemorrhoids, external large hemorrhoids, diverticulosis. 3. Colonoscopy performed on 03/01/2017 with polypectomy and colonic biopsy which revealed actively bleeding AVMs in the cecum and ascending colon, pandiverticulosis, 2-3 cm mass at 20 cm with a necrotic ulcer, large external hemorrhoids. 4. Open low anterior colon resection performed on 03/03/2017. IMAGING PERFORMED DURING THIS HOSPITAL STAY: 1. CT of the abdomen and pelvis performed on 02/23/2017 reveals diverticulosis, duodenal diverticulum, small right-sided pleural effusion. 2. CT of the chest, abdomen, and pelvis with and without IV contrast performed on 03/01/2017 revealed a medium right pleural effusion with adjacent compressive atelectasis at the right lower lobe, possible pulmonary embolism at the left lower lobe, sigmoid diverticulosis, small retroperitoneal lymph nodes. 3. V/Q scan performed on 03/02/2017 was noted to be low probability for PE. 4. Bilateral lower extremity venous Dopplers performed on 03/02/2017 revealed no evidence of DVT. 5. Portable chest x-ray performed on 03/02/2017 revealed mild cardiomegaly. 6. Gastric emptying study performed on 03/08/2017 was noted to be normal. HOSPITAL COURSE: Ms. Burnett is a 77-year-old female with a history of multiple medical problems who initially presented to the ER with generalized weakness and GI bleed. On admission, the patient was noted to have a hemoglobin of 6.9 and hematocrit of 22. The patient was admitted to the Hospitalist Service and GI was consulted. The patient was noted to be in acute renal failure on admission with a BUN of 15 and a creatinine of 1.6. The patient was started on gentle IV fluid hydration and nephrotoxic agents were avoided. The patient was given a blood transfusion and her hemoglobin and hematocrit improved. Iron studies did reveal iron deficiency anemia. The admitting CT of the abdomen and pelvis without contrast was virtually unremarkable. The patient was taken for endoscopy on February 26 at which time she underwent an EGD and colonoscopy. The EGD revealed mild erosive gastritis, mild duodenitis and a hiatal hernia. The colonoscopy was incomplete due to poor prep, however, it did reveal multiple sessile colonic polyps as well as extensive internal and external hemorrhoids. The patient was prepped again and a repeat colonoscopy was done on 03/01/2017 at which time a mass was seen at 20 cm, a polypectomy was also performed as well as biopsy and control of bleeding. Biopsy of the colon mass came back positive for invasive colonic adenocarcinoma that was moderately differentiated. In light of the mass found on colonoscopy. The patient was taken to the OR on March 03, 2017, at which time an open low anterior colon resection was performed. The patient did well postoperatively. Ultimately the pathology confirmed adenocarcinoma which was moderately differentiated with invasion through the muscularis propria and focal involvement of adjacent fiber fatty connective tissue. Also there were 2 of 21 lymph nodes that were positive for metastatic adenocarcinoma, putting this patient at stage [id number]. Slowly over the course of the hospital stay the patient's bowel function returned and she was able to tolerate a diabetic diet without any difficulty. The patient was noted to be weak after several days in the hospital, however, the patient refuses Home Health Services and refuses to go to rehabilitation. At this time the patient is clinically stable for discharge home. The patient will follow up with Dr. Acuña in the next several weeks to discuss a treatment plan for her newly diagnosed colon cancer. The patient will also follow up with Dr. Olivarez in 1 week for postsurgical checkup. DISCHARGE MEDICATIONS: 1. [place] 7.5/325, 1 tab oral every 6 hours p.r.n. for pain. 2. Pradaxa 150 mg p.o. twice a day. 3. Ultram 50 mg p.o. every 6 hours p.r.n. for pain. 4. Coreg 12.5 mg p.o. every 12 hours. 5. MiraLAX 17 g p.o. twice a day p.r.n. for constipation. 6. Dexilant 60 mg p.o. daily. 7. Amaryl 1 tab oral daily. 8. Valsartan 1 tab oral daily. 9. Zofran 4 mg p.o. q.6 hours p.r.n. for nausea. 10. Lantus 45 units subcutaneous daily. 11. Multaq 1 tab oral daily. 12. Zyrtec 1 tab oral daily. 13. Lasix 20 mg p.o. daily. 14. Fosamax 1 tab oral once a week. DISCHARGE DIET: 1800 ADA diet. ACTIVITY: As tolerated. FOLLOWUP INSTRUCTIONS: 1. The patient will need to follow up with Dr. Olivarez in 1 week. 2. The patient will follow up with Dr. Acuña as scheduled by her clinic to discuss treatment for her colon cancer. 3. The patient will need to follow up with Dr. Lozano as needed. cc: MD Alia Whipple MD
--- NOTE | 2017-03-12 21:56 | DISCHARGE SUMMARY ---
ADMISSION DATE: 02/24/2017 DISCHARGE DATE: 03/12/2017 EBENEZER
== END 2017-03-12 14:32 | disposition home or self-care (01) ==
LOC: ED 18:43 → SUATTDRO 02-24 01:54 → EDIPHOLD 02-24 01:54 → 3N 02-24 12:21
PROVIDERS: ATTEND Internal Medicine
PROC: EN.HEAT (2017-03-01 15:40)

== ENCOUNTER 2019-09-11 16:31 | Inpatient (IN) ==
[2019-09-11] MEDS ORDERED: VANCOMYCIN IV PER PHARMACY MISC SCH (16:45)
[2019-09-11] MEDS ORDERED: TYLENOL PO PRN (17:20)
[2019-09-11 18:44] LABS: INR 1.21; PROTIME 15.5 Seconds (11.0-16.0)
[2019-09-11 18:45] LABS: PTT 33.9 Seconds (22.3-41.8)
[2019-09-11 18:51] LABS: HEMOGLOBIN A1C 4.8 % (4.8-6.0)
[2019-09-11 18:52] LABS: BASO# 0.03 X1000 (0.0-0.2); BASO% 0.3 % (0.0-0.8); EOS# 0.38 X1000 (0.0-0.7); EOS% 4.4 % (0.0-10.0); HEMATOCRIT 33.1 % (37.0-47.0); HEMOGLOBIN 10.5 g/dL (12.0-16.0); IMM GRAN# 0.04 X1000 (0.0-0.04); IMM GRAN% 0.5 % (0.0-0.5); LYMPH# 0.43 X1000 (1.2-3.4); MCH 31.2 PG (27-31); MCHC 31.7 g/dL (33-37); MCV 98.2 FL (81-99); MONO# 0.49 X1000 (0.11-0.59); MONO% 5.7 % (1.7-9.3); MPV 9.8 FL (7.4-10.4); NEUT# 7.29 X1000 (1.4-6.5); NEUT% 84.1 % (42.2-75.2); PLT 145 X1000 (130-400); RBC 3.37 XMIL (4.2-5.4); RDW 14.6 % (11.5-14.5); WBC 8.66 X1000 (4.8-10.8)
[2019-09-11 19:05] LABS: ALBUMIN 3.2 g/dL (3.5-5.0); CALCIUM 8.2 mg/dL (8.8-10.2); POTASSIUM 5.4 mmol/L (3.5-5.1); TOTAL BILIRUBIN 0.76 mg/dL (0.20-1.00); TOTAL PROTEIN 6.3 g/dL (6.3-8.3)
[2019-09-11] MEDS ORDERED: MAGNESIUM SULFATE 2 GM/S.W.I. 2 GM/50 ML IVPB IV ONE ×3 (20:00)
[2019-09-11] MEDS ORDERED: CALMOSEPTINE OINTMENT TOP PRN (20:14)
[2019-09-11] MEDS: NEURONTIN PO SCH (20:19)
[2019-09-11] MEDS: COREG PO SCH (20:19)
[2019-09-11] MEDS: MULTAQ PO SCH (20:20)
[2019-09-11] MEDS: SINGULAIR PO SCH (20:20)
[2019-09-11] MEDS: MYCOSTATIN CREAM TOP SCH (20:49)
[2019-09-11] MEDS ORDERED: VANCOMYCIN 1,500 MG in NS 250 ML IV ONE (21:00)
--- NOTE | 2019-09-11 21:39 | Diag Imaging Result Doc PS360 ---
EXAM: CHEST-2 VIEWS 09/11/2019 HISTORY: cough TECHNIQUE: AP and lateral chest COMMENT: There is a Port-A-Cath on the right with its tip in the right atrium. The inspiration is better than on 01/04/2018. There is less atelectasis in the right lower lobe. The heart size appears smaller. IMPRESSION: No evidence of acute disease. Electronically signed by David Mccoy 09/11/2019 9:37 PM
[2019-09-11 22:04] LABS: URINE SOURCE CLEAN CATCH
[2019-09-11 22:13] LABS: BILIRUBIN URINE NEGATIVE (NEGATIVE); BLOOD URINE NEGATIVE (NEGATIVE); COLOR YELLOW; GLUCOSE URINE NEGATIVE (NEGATIVE); KETONE URINE NEGATIVE (NEGATIVE); LEUKOCYTES URINE LARGE (NEGATIVE); NITRITE URINE NEGATIVE (NEGATIVE); PH URINE 5.5; PROTEIN URINE 30 mg/dL (NEGATIVE); SP GRAVITY URINE 1.023; TURBIDITY URINE HAZY (CLEAR); UROBILINOGEN URINE NORMAL (NORMAL)
[2019-09-11 22:22] LABS: UR EPITHELIAL CELLS <10 /HPF (<10); URINE BACTERIA NEGATIVE /HPF; URINE CASTS NONE SEEN; URINE CRYSTALS NONE SEEN; URINE SMALL ROUND CELLS NONE SEEN; URINE WBC TNTC /HPF (<10); URINE YEAST PRESENT
[2019-09-12] MEDS: HUMULIN R SUBQ SCH ×5 (01:37→21:40)
--- NOTE | 2019-09-12 06:35 | HISTORY AND PHYSICAL ---
HISTORY OF PRESENT ILLNESS: I have seen and examined Ms. Burnett today. The daughter and the son were both at the bedside at the time of the encounter. Apparently, Ms. Burnett has a chronic ulceration on the right lower extremity, which seems to be progressively getting worse. She also has a history of colon cancer and was on chemotherapy, but because of some side effects, it has been switched to an immune modulator which the family does not know the name. They only think it starts with a B. Unsure if this is bevacizumab, which would be VGF. In any case, we have been consulted for medical management. Ms. Burnett is also diabetic with history of atrial fibrillation and dyslipidemia. PHYSICAL EXAMINATION: VITAL SIGNS: Blood pressure is 119/66 with a pulse of 125, respirations 20, temperature is 98 degrees. POSITIVES ON HER PHYSICAL EXAMINATION: The skin looks slightly dry. The abdomen is soft. There is an old surgical scar. On extremities, there is edema bilaterally, about 2+. The left has chronic stasis dermatopathy, but no open wounds. The right has superficial excoriations with some rash all the way extending to the posterior thigh. LABORATORY DATA: Has been reviewed. ASSESSMENT: 1. Bilateral lower extremity stasis dermatopathy with possible superimposed cellulitis. 2. Chronic surgical wounds with difficult healing. Apparently, Ms. Burnett is on monoclonal therapy for her colon cancer. If this is bevacizumab (Avastin), it could be contributing to the unhealing ulcer. 3. Diabetes mellitus, controlled. 4. Hypertension. 5. History of atrial fibrillation, currently stable. Please refer to the details of the consult note which have been dictated by the REAL ESTATE INVESTMENT ANALYST in the chart. I have discussed the plan with her. I have also discussed my findings and plan with the patient and the family members who were at the bedside at the time of the encounter. cc: Joseph Bowers MD
--- NOTE | 2019-09-12 07:12 | CONSULTATION ---
DATE OF CONSULTATION: 09/11/2019 PRIMARY CARE PROVIDER: Dr. Mariah Mcguire. CONSULTING PHYSICIAN: Dr. Olivarez. REASON FOR CONSULTATION: Diabetes management. HISTORY OF PRESENT ILLNESS: Corine Burnett is a 79-year-old female with a medical history of on and off cellulitis of the right lower extremity for the last year. She apparently has been having some drainage in the right lower extremity over the last week or so and worsened over the last 3 or 4 days. It is red all the way up into the buttocks, between the legs, underneath the folds. Has the appearance of candidiasis infection with a little rash. The right knee down, has open areas where it is draining serous fluid and the buttocks there is 2 stage II dime-sized decubitus. She has been admitted for the cellulitis and Dr. Pruitt has been consulted. Also has a history of metastatic colon cancer and Dr. Acuña is consulted. Apparently, she still does radiation chemo according to the family. PAST MEDICAL HISTORY: 1. Atrial fibrillation, on aspirin and Multaq. 2. Diabetes mellitus type 2. 3. Hyperlipidemia. 4. Peptic ulcer disease and GERD. 5. Osteoporosis. 6. Metastatic colon cancer with metastasis to the liver. 7. Iron-deficiency anemia. 8. Seasonal allergies. 9. Arthritis. 10. Hypertension. 11. Chronic lower extremity edema bilaterally. SURGICAL HISTORY: 1. Hysterectomy. 2. Exploratory lap, liver mass wedge biopsy. 3. Varicose vein stripping, bilateral legs. 4. Bilateral cataracts. SOCIAL HISTORY: Denies tobacco, alcohol or illicit drug use. She normally lives alone. Her daughter has been with her the last 2 weeks. Decrease in ambulation. FAMILY HISTORY: Mother had a stroke. Father had heart attack. ALLERGIES: Penicillin and sulfa. HOME MEDICATIONS: Have not been reconciled yet. REVIEW OF SYSTEMS: Fourteen point review of systems are complete and all are negative, except for those mentioned above in the HPI. PHYSICAL EXAMINATION: Vital Signs: Temperature not recorded. Heart rate 125, respiratory rate 20, blood pressure 119/66, O2 saturation 100% on room air. General: Ms. Corine Burnett is a 79- year-old female she is in no acute distress. She is able to answer questions appropriately. HEENT: Atraumatic, normocephalic. Pupils equal, round, reactive to light. Extraocular movements intact. Mucous membranes are moist. Neck: Trachea midline. Cardiovascular: Regular irregular. Tachycardic rate and rhythm. No rubs, gallops, murmurs. She has 2 to 3+ lower extremity edema. Trace bilateral pedal pulses, +2 radial pulses. Negative for JVD or carotid bruits. Pulmonary: Clear to auscultation bilateral breath sounds. No accessory muscle use or work of breathing noted Soft, nontender, nondistended. Positive bowel sounds x4. Extremities: Moves all extremities equally. Decreased range of motion. Neurologic: Alert and oriented x3. Follows commands. Sensory is decreased in the lower extremities. Skin: Warm, dry, and intact, except for the right lower extremity from the knee down there is open areas that is weeping serous fluid and all the way from the back of the thigh up into the groin and in the folds and under the breast folds there are areas of redness and rash that has the appearance of candidiasis infection. LABORATORY DATA: Not available yet. IMAGING: Not available yet. ASSESSMENT AND PLAN: 1. Right lower extremity cellulitis. She has been started on vancomycin and Dr. Pruitt has been consulted. 2. Right lower extremity groin and folds appeared to have candidiasis infection. She has been receiving nystatin powder and cream according to her. She may benefit from something IV to help clear it up, but we will leave that to Infectious Disease. 3. Bilateral buttock stage II decubitus ulcers. Wound Care has been consulted and we will do turn q.2 hours. 4. Atrial fibrillation possibly with rapid ventricular rate. There is no electrocardiogram yet. We will continue the Multaq and aspirin once it is verified. She is not in any distress at this time. 5. Diabetes mellitus type 2. Pattern blood glucoses sliding scale insulin. 6. Metastatic colon cancer with liver involvement with history of radiation and chemo. Dr. Acuña has been consulted. 7. Seasonal allergies. We will continue home medications for that once it is verified. 8. Hypertension. She states she actually takes her Coreg for the blood pressure and the heart rate. Denies any congestive heart failure, but we will continue that once it is verified. 9. Peptic ulcer disease and gastroesophageal reflux disease. Again, home medications have not been verified but we will resume her Pepcid or her proton pump inhibitor, whatever it is she has in her home medications. 10. Deep venous thrombosis prophylaxis. Lovenox. Dictated by ZAINA Nino for Joseph Bowers MD cc: ZAINA Nino MD
[2019-09-12 07:23] LABS: BASO# 0.03 X1000 (0.0-0.2); BASO% 0.5 % (0.0-0.8); EOS# 0.39 X1000 (0.0-0.7); HEMATOCRIT 27.4 % (37.0-47.0); HEMOGLOBIN 8.6 g/dL (12.0-16.0); IMM GRAN# 0.02 X1000 (0.0-0.04); IMM GRAN% 0.4 % (0.0-0.5); LYMPH# 0.45 X1000 (1.2-3.4); LYMPH% 8.1 % (20.5-51.1); MCH 31.3 PG (27-31); MCHC 31.4 g/dL (33-37); MCV 99.6 FL (81-99); MONO# 0.34 X1000 (0.11-0.59); MONO% 6.1 % (1.7-9.3); MPV 10.1 FL (7.4-10.4); NEUT# 4.35 X1000 (1.4-6.5); NEUT% 77.9 % (42.2-75.2); PLT 129 X1000 (130-400); RBC 2.75 XMIL (4.2-5.4); RDW 14.6 % (11.5-14.5); WBC 5.58 X1000 (4.8-10.8)
[2019-09-12 07:36] LABS: ALBUMIN 2.5 g/dL (3.5-5.0); CALCIUM 7.9 mg/dL (8.8-10.2); CREATININE 1.3 mg/dL (0.5-0.9); MAGNESIUM 1.2 mg/dL (1.5-2.7); POTASSIUM 5.1 mmol/L (3.5-5.1); TOTAL BILIRUBIN 0.5 mg/dL (0.20-1.00); TOTAL PROTEIN 5.1 g/dL (6.3-8.3)
[2019-09-12] MEDS ORDERED: DIOVAN PO SCH (09:00)
[2019-09-12] MEDS ORDERED: MAXIPIME 2 GM/NS 2 GM/100 ML IVPB IV SCH (09:00)
--- NOTE | 2019-09-12 10:16 | PROGRESS NOTE ---
DATE: 09/12/2019 SUBJECTIVE: Ms. Burnett was put in yesterday. She is seen by Dr. Mariah Mcguire. Apparently, chronic ulceration of the right lower extremity which seems to be progressively getting worse. She also has a history of colon cancer and was on chemotherapy. Because of some side effects, she has been switched to immune modulator, which the family does not know the name, they think is starts with a "B," unsure if it is bevacizumab which would be VGF. In any case, she has been consulted for medical management. She seems to feel a little bit better. Her leg feels a little bit better. OBJECTIVE: She remains afebrile, temperature 98.3 degrees, pulse 90, respirations 18, blood pressure 106/49.HEENT: Pupils are equal and round. Lungs: Clear in all lung nix. Cardiovascular: Regular rhythm and rate without murmur or S3. Abdomen: Soft. Skin: Warm and dry. LABORATORY DATA: White count 5580, hematocrit is 27, hemoglobin is 8.6, platelet count 129,000. Sodium 136, potassium 5.1, chloride 102, bicarb 24, BUN is 25, creatinine 1.3. Magnesium came up to 1.2. ProTime is 15.5, PTT is 33. Urinalysis is unremarkable. Chest x-ray, no evidence of acute disease. ASSESSMENT AND PLAN: 1. Bilateral lower extremity venous stasis dermopathy superimposed cellulitis on the right side with 2 chronic surgical wounds with difficulty healing. Apparently, Ms. Burnett is on monoclonal therapy for colon cancer. If this is Avastin, which is bevacizumab, it could be contributing to the nonhealing ulcer. 2. Diabetes mellitus type 2. Will follow pattern sugars. 3. Hypertension. 4. History of atrial fibrillation, currently stable. Dr. Ananya Acuña has been consulted, and Dr. Pruitt will follow as well. We will see whether we need to get Surgery involved or not. 5. Current medication reviewed. The patient got 1 dose of vancomycin, but is now on daptomycin 500 mg IV q.24 hours. cc: Dimitry Gonzalez MD
--- NOTE | 2019-09-12 10:17 | INFECTIOUS DISEASE CONSULT REP ---
DATE: 09/12/2019 CONCLUSION: The patient has bilateral leg cellulitis. It is much worse in the right leg than the left leg. I did not find any definite evidence of lymphangitis. RECOMMENDATIONS: I have discontinued vancomycin because the patient has decreased hearing and she has renal insufficiency. I have started the patient on a combination of daptomycin and cefepime. Some of the side effects of the antibiotics, including rash, diarrhea, and muscle toxicity have been explained to the patient, who agrees with treatment. I have also taken a culture from the patient's right leg. Some of the side effects of daptomycin and cefepime, which I changed the patient to today, including rash, diarrhea, and muscle toxicity have been explained to the patient, who agrees with treatment. DISCUSSION: The patient, approximately 6 months ago, had surgery performed on both leg veins by Dr. Olivarez. The patient's legs have remained erythematous and draining a lot of fluid, with the right leg worse than the left leg. The patient's lab studies show a CBC with a white count of 5580, hemoglobin 8.6, and platelet count 129,000. Creatinine is 1.3. GFR is 40. Liver function studies are normal. Urinalysis showed white cells, but no bacteria. Blood and urine cultures are pending, and also I have sent off a culture today from the patient's leg. TRANSPORT ANALYST HISTORY: She is a 3, para 3, AB 0. She has had a hysterectomy. REVIEW OF SYSTEMS: Eyes and Ears: The patient can see well, but she has decreased hearing. Neck: No stiffness. Respiratory: No cough or shortness of breath. Cardiac: No chest pain or palpitations. GI: No nausea, vomiting, or diarrhea. : No dysuria or flank pain. Extremities: See present illness. Neurologic: No seizures. No loss of motor or sensory function. PREVIOUS HOSPITALIZATIONS AND OPERATIONS: The patient has had colon surgery for cancer. She does have metastatic disease involving the liver. She has received chemotherapy and radiation therapy, as well as surgery as mentioned above. Part of the colon was removed. The patient has also had a Port-A-Cath placed in the right chest. MEDICAL DISEASES: Positive for colon cancer with metastatic disease, atrial fibrillation, diabetes mellitus, hypertension, hyperlipidemia, and gastroesophageal reflux disease. INFECTIOUS DISEASE HISTORY: Positive for pneumonia and UTI. FAMILY HISTORY: Positive for diabetes mellitus, hypertension, myocardial infarction, and stroke. SOCIAL HISTORY[place] lives [place]. She does not have any pets. She does not smoke cigarettes, drink alcoholic beverages, or abuse drugs. ALLERGIES: The patient is allergic to penicillin and sulfa manifested by a rash. I asked the patient if she has ever had Keflex, and she said she had and she has tolerated it well in the past. Therefore, I think she should tolerate cefepime, which is one of the antibiotics I have ordered for the patient. HOME MEDICATIONS: Include Fosamax, Coreg, Zyrtec, Multaq, fenofibrate, Lasix, gabapentin, glimepiride, hydrocodone, insulin, metformin, Singulair, Protonix, and valsartan. PHYSICAL EXAMINATION: Vital Signs: Temperature is 98.3 degrees, pulse 91, respirations 18, blood pressure 106/49. The patient weighs 175 pounds. General: This is a chronically ill-appearing, elderly female. She is in no acute distress. HEENT: She can see near objects. She has decreased hearing. There is no drainage from the nose or ears. I did not see any white patches in her mouth. The patient has decreased hearing. Neck: No meningismus. Lungs: Clear to auscultation. Cardiovascular: Heart rate is irregular. Abdomen: Soft and nontender. Extremities: Both legs are erythematous and swollen and draining serous fluid. The right leg is much more swollen and draining more, and also the erythema extends up to the buttock area. Neurologic: The patient is alert. She can move her extremities. There is no tremor. Her memory as regarding her medical history is decreased. Thank you for the consult. cc: MD Dimitry Gudino MD
[2019-09-12] MEDS: FOLIC ACID PO SCH (10:48)
[2019-09-12] MEDS: VITAMIN B-12 PO SCH (10:48)
[2019-09-12] MEDS: NEURONTIN PO SCH ×2 (10:49→21:08)
[2019-09-12] MEDS: MULTAQ PO SCH ×2 (10:49→21:08)
[2019-09-12] MEDS: LOVENOX SUBQ SCH (10:50)
[2019-09-12] MEDS: ASPIRIN PO SCH (10:50)
[2019-09-12] MEDS: COREG PO SCH ×2 (10:50→21:08)
[2019-09-12] MEDS: MYCOSTATIN CREAM TOP SCH ×2 (10:50→21:05)
[2019-09-12] MEDS: ICAR-C PO SCH (10:50)
[2019-09-12] MEDS: CUBICIN 500 MG in NS 100 ML IV SCH (10:51)
[2019-09-12] MEDS: MAXIPIME 2 GM/NS 2 GM/100 ML IVPB IV SCH ×2 (10:56→21:08)
[2019-09-12] MEDS: LANTUS INSULIN SUBQ SCH (10:56)
--- NOTE | 2019-09-12 17:18 | HEMO/ONC CONSULTATION ---
DATE: 09/12/2019 REQUESTING PHYSICIAN: Dr. Olivarez. REASON FOR CONSULTATION: Colon cancer. HISTORY OF PRESENT ILLNESS: Ms Burnett has known metastatic colorectal cancer and has been on therapy with Vectibix for some time. She has had chronic venous stasis problems with recent reflux surgery and persistent cellulitis and poor wound healing. She is admitted for the same. She denies any current fevers or chills. COMPLETE REVIEW OF SYSTEMS: Negative except as per HPI. PAST MEDICAL HISTORY: Significant for metastatic colorectal cancer, atrial fibrillation, dyslipidemia, diabetes, peptic ulcer disease, GERD, osteoporosis, iron deficiency anemia, seasonal allergies, arthritis, hypertension, and chronic venous stasis. PAST SURGICAL HISTORY: Hysterectomy, liver biopsy, varicose vein stripping, bilateral cataracts, and exploratory laparotomy. SOCIAL HISTORY: No tobacco, alcohol, or illicit drug use. Her daughter is present at time of consultation. FAMILY MEDICAL HISTORY: Dad had a heart attack. Mom had a stroke. ALLERGIES: Penicillin and sulfa. MEDICATIONS: Reviewed per chart. REVIEW OF SYSTEMS: Pertinent positives and negatives as per HPI. All other review of systems negative. PHYSICAL EXAMINATION: Vital Signs: Temperature 98.1 degrees, pulse 95, respiratory rate 18, blood pressure 104/46, O2 saturation 99% on room air. General: This is an overweight chronically ill-appearing woman in no acute distress. Her son at the bedside today. Eyes: Sclerae anicteric. Cardiovascular: Regular rate and rhythm. Normal S1, S2. No murmurs, rubs, or gallops. Lungs: Clear to auscultation bilaterally without wheezes, rales, or rhonchi. Gastrointestinal: Abdomen is soft, nontender, nondistended with normoactive bowel sounds. Extremities: Bilateral extremities with 2+ edema, but bandage is in place. Rest of examination normal per template. LABS: Urinalysis shows large white blood cells, 10 to 20 red blood cells. Albumin is 2.5, creatinine is 1.3, potassium is 5.1, hemoglobin is 8.6. ASSESSMENT AND PLAN: 1. Metastatic colorectal cancer. Patient's Vectibix is on hold. I suspect the Vectibix is not helping nor inhibiting her wound healing. We will certainly hold Vectibix until her acute issues resolve. 2. Cellulitis: Management per primary team. Reassess it during hospitalization. 3. Chronic venous stasis: Management per Dr. Olivarez. Continue wound care. Thank you for this consultation and the opportunity to participate in the care of this patient. She is well known to us. We will certainly follow along during her hospitalization and leave further recommendations as indicated. cc: MD Dimitry Petit MD Jason R. Seale, MD
[2019-09-12] MEDS: SINGULAIR PO SCH (21:08)
[2019-09-13] MEDS ORDERED: VANCOMYCIN 1,350 MG in NS 250 ML IV SCH (03:00)
[2019-09-13] MEDS ORDERED: NS 500 ML IV ONE (04:47)
[2019-09-13] MEDS: HUMULIN R SUBQ SCH ×4 (06:17→21:41)
[2019-09-13 07:05] LABS: BASO# 0.03 X1000 (0.0-0.2); BASO% 0.7 % (0.0-0.8); EOS# 0.34 X1000 (0.0-0.7); EOS% 7.4 % (0.0-10.0); HEMATOCRIT 26.5 % (37.0-47.0); HEMOGLOBIN 8.2 g/dL (12.0-16.0); LYMPH% 8.7 % (20.5-51.1); MCH 31.1 PG (27-31); MCHC 30.9 g/dL (33-37); MCV 100.4 FL (81-99); MONO# 0.29 X1000 (0.11-0.59); MONO% 6.3 % (1.7-9.3); MPV 10.2 FL (7.4-10.4); NEUT# 3.54 X1000 (1.4-6.5); NEUT% 76.9 % (42.2-75.2); PLT 127 X1000 (130-400); RBC 2.64 XMIL (4.2-5.4); RDW 14.7 % (11.5-14.5)
[2019-09-13 07:26] LABS: ALBUMIN 2.5 g/dL (3.5-5.0); CALCIUM 7.6 mg/dL (8.8-10.2); CREATININE 1.6 mg/dL (0.5-0.9); MAGNESIUM 1.3 mg/dL (1.5-2.7); POTASSIUM 5.5 mmol/L (3.5-5.1); TOTAL BILIRUBIN 0.39 mg/dL (0.20-1.00); TOTAL PROTEIN 5.1 g/dL (6.3-8.3)
[2019-09-13] MEDS: NS 1,000 ML IV SCH ×2 (08:16→21:32)
[2019-09-13] MEDS: FOLIC ACID PO SCH (08:23)
[2019-09-13] MEDS: ICAR-C PO SCH (08:23)
[2019-09-13] MEDS: ASPIRIN PO SCH (08:23)
[2019-09-13] MEDS: NEURONTIN PO SCH ×2 (08:24→21:30)
[2019-09-13] MEDS: COREG PO SCH ×2 (08:24→21:30)
[2019-09-13] MEDS: VITAMIN B-12 PO SCH (08:24)
[2019-09-13] MEDS: MULTAQ PO SCH ×2 (08:25→21:30)
[2019-09-13] MEDS: LOVENOX SUBQ SCH (08:25)
[2019-09-13] MEDS: MAXIPIME 2 GM/NS 2 GM/100 ML IVPB IV SCH (08:26)
[2019-09-13] MEDS: MYCOSTATIN CREAM TOP SCH ×2 (08:28→21:31)
[2019-09-13] MEDS: LANTUS INSULIN SUBQ SCH (08:30)
--- NOTE | 2019-09-13 09:52 | PROGRESS NOTE ---
DATE: 09/13/2019 Ms. Burnett had a little bit of bladder distention. They did an ultrasound. She had residual over 800. She had not had much urine output. They were starting to put a Chinchilla catheter in and she actually got up and then voided, and did pretty well. Blood pressure has been running a little low, between 97-131/38-67, so we actually held her valsartan today. She remains afebrile. PHYSICAL EXAMINATION: Temperature 97.9 degrees, pulse 70, respirations 18, blood pressure 97/38. Pupils are equal and round. Lungs are clear in all lung nix. Cardiovascular Examination: Regular rhythm and rate without murmur or S3. Abdomen is soft. Skin is warm and dry. Urine output is 2100 mL. Blood sugar 104, 157, 98. ASSESSMENT AND PLAN: 1. Metastatic colorectal cancer. The patient was on Vectibix, which is on hold. I suspect the Vectibix is not helping nor inhibiting the wound healing. Continue to hold the Vectibix until her acute issues resolve. 2. Cellulitis management. Continue topical care. 3. Chronic venous stasis. 4. Diabetes mellitus type 2. We will continue to follow sugars. 5. Her blood pressure was a little on the low side so I held one of her blood pressure medicines. 6. She has a history of atrial fibrillation but rate appears to be controlled. 7. She is on I think daptomycin. Her urine culture grew out a gram-negative jonna, about 50,000 CFU per mL. No growth from the blood cultures. I went up on her fluid to 85 mL an hour. We held her valsartan today. She is on daptomycin 500 mg intravenous every 24 hours. cc: Dimitry Gonzalez MD
--- NOTE | 2019-09-13 09:53 | GENERAL SURGERY PROGRESS NOTE ---
DATE: 09/13/2019 SUBJECTIVE: She is feeling better. No acute events overnight. OBJECTIVE: Vital Signs: She is afebrile. Vital signs are stable. General: She is awake, alert, and oriented x3. No acute distress. Extremities: The redness and swelling of the right leg is improving. She is having less drainage. LABORATORY DATA: White blood cell count 4.6, hemoglobin 8.2, hematocrit 26. Electrolytes are reviewed and are stable, although the BUN and creatinine have increased to 38 and 1.6. MICROBIOLOGY: Her blood cultures are negative. Her wound culture is pending. ASSESSMENT AND PLAN: A 79-year-old female with recently worsening cellulitis and edema of the lower extremities, right greater than left. Some component of venous stasis and lymphedema are involved. It seems to be improving with elevation and antibiotics. We will wait for the culture results to come back before making discharge plans. cc: MD Dimitry Hernandez MD
--- NOTE | 2019-09-13 10:07 | INFECTIOUS DISEASE PROGRESS NO ---
DATE: 09/13/2019 PRESENT ILLNESS: The patient has cellulitis of the legs. It is much more worse in the right leg than the left leg. The patient also has a gram-negative jonna urinary tract infection. MEDICATIONS: The patient is on a combination of daptomycin and cefepime. This is day 1 of treatment. PHYSICAL EXAMINATION: Vital Signs: Temperature is 97.9 degrees, pulse 73, respirations 18, blood pressure 97/38. General: This is an ill-appearing, elderly female. She is in no acute distress. HEENT: She has decreased hearing. She can see near objects. She does not have any white patches on her tongue. Neck: No pain with movement. Lungs: Clear to auscultation. Cardiovascular: Heart rate is irregular. Abdomen: Soft and nontender. Extremities: Both legs are less erythematous and swollen than they were yesterday, and also there has been a decrease in the serous fluid that both legs produce. Neurologic: The patient is alert. She can move her extremities. There is no tremor. IMAGING AND LABORATORY DATA: There is no new radiographic study. The CBC shows a white count of 4600, hemoglobin 8.2, platelet count 127,000. Creatinine is 1.6. GFR is 31. Urinalysis showed white cells, but no bacteria. Blood culture is pending. Blood cultures are negative thus far. Urine culture is growing a gram-negative jonna. ASSESSMENT AND PLAN: The patient has cellulitis of the legs that is much worse in the right leg. My plan is to continue with daptomycin and cefepime pending the results of culture from the leg. Also, I have ordered to keep the patient's foot of the bed elevated with the manual Gatch continuously. As regarding the patient's urinary tract infection, I think it should be covered with the current antibiotics that the patient is on. The patient appears to have no symptoms of a urinary tract infection, and therefore since it is an asymptomatic bacteriuria, no antibiotic treatment is indicated. COMORBIDITIES: The patient is elderly. She has colon cancer with metastatic disease. She has diabetes mellitus and gastroesophageal reflux disease. The patient also is in atrial fibrillation. cc: MD Dimitry Gudino MD
[2019-09-13] MEDS: CUBICIN 500 MG in NS 100 ML IV SCH (10:15)
[2019-09-13] MEDS: SINGULAIR PO SCH (21:30)
[2019-09-14] MEDS: MAXIPIME 2 GM/NS 2 GM/100 ML IVPB IV SCH ×2 (00:17→11:52)
[2019-09-14 07:05] LABS: BASO# 0.02 X1000 (0.0-0.2); BASO% 0.4 % (0.0-0.8); EOS# 0.35 X1000 (0.0-0.7); EOS% 6.9 % (0.0-10.0); HEMATOCRIT 26.8 % (37.0-47.0); HEMOGLOBIN 8.2 g/dL (12.0-16.0); IMM GRAN# 0.03 X1000 (0.0-0.04); IMM GRAN% 0.6 % (0.0-0.5); LYMPH# 0.38 X1000 (1.2-3.4); LYMPH% 7.5 % (20.5-51.1); MCH 30.7 PG (27-31); MCHC 30.6 g/dL (33-37); MCV 100.4 FL (81-99); MONO# 0.28 X1000 (0.11-0.59); MONO% 5.6 % (1.7-9.3); MPV 10.1 FL (7.4-10.4); NEUT# 3.98 X1000 (1.4-6.5); PLT 126 X1000 (130-400); RBC 2.67 XMIL (4.2-5.4); RDW 14.6 % (11.5-14.5); WBC 5.04 X1000 (4.8-10.8)
[2019-09-14 07:26] LABS: ALBUMIN 2.7 g/dL (3.5-5.0); CALCIUM 8.1 mg/dL (8.8-10.2); CREATININE 1.8 mg/dL (0.5-0.9); MAGNESIUM 1.3 mg/dL (1.5-2.7); POTASSIUM 5.8 mmol/L (3.5-5.1); TOTAL BILIRUBIN 0.38 mg/dL (0.20-1.00); TOTAL PROTEIN 5.4 g/dL (6.3-8.3)
[2019-09-14] MEDS ORDERED: LASIX IV ONE (07:52)
[2019-09-14] MEDS: FOLIC ACID PO SCH (08:02)
[2019-09-14] MEDS: ICAR-C PO SCH (08:02)
[2019-09-14] MEDS: COREG PO SCH ×2 (08:02→20:50)
[2019-09-14] MEDS: MULTAQ PO SCH ×2 (08:02→20:50)
[2019-09-14] MEDS: ASPIRIN PO SCH (08:02)
[2019-09-14] MEDS: VITAMIN B-12 PO SCH (08:02)
[2019-09-14] MEDS: LOVENOX SUBQ SCH (08:02)
[2019-09-14] MEDS: NEURONTIN PO SCH ×2 (08:02→20:50)
[2019-09-14] MEDS: LANTUS INSULIN SUBQ SCH (08:03)
--- NOTE | 2019-09-14 08:14 | PROGRESS NOTE ---
DATE: 09/14/2019 SUBJECTIVE: Ms. Burnett feels better. She had a good night. She had a little bit of wheezing this morning. We turned her fluid down to 50 mL normal saline q. hour. We will give her 1 dose of Lasix this morning. OBJECTIVE: Vital Signs: Temperature 98.0 degrees, pulse 69, respirations 16, blood pressure 113/47. Eyes: Pupils are equal and round. Lungs: Lungs are clear in all lung nix. Cardiovascular exam: Regular rhythm and rate without murmur or S3. : Urine output was 2500 mL, so good urine output. ASSESSMENT AND PLAN: 1. Patient's cellulitis of the legs, worse in the right leg. 2. Gram-negative jonna urinary tract infection. Patient on combination daptomycin and cefepime; this should be day 2 of treatment. 3. Metastatic colorectal cancer. She is on Vectibix, which is on hold. Her wounds seem to be slowly healing. Continue topical care. 4. Chronic venous stasis. 5. Diabetes mellitus type 2. 6. Blood pressure is a little low. We are going to stop the valsartan. We held it yesterday. 7. History of atrial fibrillation; rate appears controlled. REVIEW OF HER ORDERS: She is on Singulair 10 mg at bedtime. Gave her some magnesium on the , aspirin 81 mg a day, Coreg 6.25 mg b.i.d., daptomycin 500 mg IV q. 24 hours, Multaq which is dronedarone 400 mg p.o. b.i.d., folic acid 1 mg daily, Neurontin 300 mg b.i.d., Lantus insulin 15 units subcutaneous q.a.m., iron carbonyl 1 a day, cefepime 2 g IV q. 12 hours, normal saline down to 50 mL an hour. I am going to give her 1 dose of Lasix now, and we will put her on some DuoNebs. She has a little bit of wheezing, but she seems to be improving. We will also start physical therapy and start trying to get her up and move her around. cc: Dimitry Gonzalez MD
[2019-09-14] MEDS: DUONEB (A & A) INH PRN ×3 (08:25→15:51)
[2019-09-14] MEDS: MYCOSTATIN CREAM TOP SCH ×2 (09:27→20:52)
[2019-09-14] MEDS: NS 1,000 ML IV SCH ×3 (09:28→10:25)
--- NOTE | 2019-09-14 09:52 | Diag Imaging Result Doc PS360 ---
EXAM: CHEST-PORTABLE 09/14/2019 HISTORY: wheezing, look for pulmonary venous HTN TECHNIQUE: AP portable at 0927 COMMENT: There is increased interstitial opacity in both lungs compared to 09/11/2019. The lungs are not as well-expanded. The heart size remains enlarged. IMPRESSION: Pulmonary edema and cardiomegaly. Electronically signed by David Mccoy 09/14/2019 9:50 AM
[2019-09-14] MEDS: CUBICIN 500 MG in NS 100 ML IV SCH (10:25)
[2019-09-14] MEDS: HUMULIN R SUBQ SCH ×3 (10:59→20:51)
--- NOTE | 2019-09-14 11:51 | GENERAL SURGERY PROGRESS NOTE ---
DATE: 09/14/2019 SUBJECTIVE: The patient is feeling better. She is having less swelling and pain. OBJECTIVE: She is afebrile. Vital signs are stable.General: She is awake, alert, and oriented x3 in no acute distress. Extremities: The right leg swelling is definitely improving. There is less drainage. LABORATORY: White cell count 5, hemoglobin 8.2, and hematocrit 26. Electrolytes reviewed, and unremarkable. MICROBIOLOGY: Her right leg culture growth is showing gram-negative rods. These species are not identified yet. ASSESSMENT AND PLAN: A 79-year-old female with severe right lower extremity cellulitis greater than left side. She also has a history of chronic venous insufficiency and lymphedema. She is improving significantly. We are awaiting culture results before making recommendations for home antibiotics. I suspect she could be discharged home tomorrow with oral antibiotics per Dr. Pruitt's recommendations, and continued compression therapy at home. cc: MD Dimitry Hernandez MD
--- NOTE | 2019-09-14 16:10 | INFECTIOUS DISEASE PROGRESS NO ---
DATE: 09/14/2019 PRESENT ILLNESS: The patient has cellulitis of the legs with the right leg much worse than the left leg. The patient in the past day or 2 has shown significant improvement in her cellulitis of the legs. The patient also has a Klebsiella urinary tract infection. MEDICATIONS: The this is the second day of treatment with the combination of daptomycin and cefepime. PHYSICAL EXAMINATION: Vital Signs: Temperature is 97.7 degrees, pulse 57, respirations 18, blood pressure 104/51. General: This is an ill-appearing elderly female. She is in no acute distress. Head/Eyes/Ears/Nose/Throat: She can see near objects. She does have decreased hearing, however. Neck: No pain with movement. Lungs: Clear to auscultation. Cardiovascular: Heart rate is irregular. Abdomen: Soft and nontender. Extremities: Both legs are less erythematous and edematous. Neurologic: The patient is alert. She can move her extremities. There is no tremor. LABORATORY AND RADIOLOGY: There is no new radiographic study. CBC shows a white count of 5040, hemoglobin 8.2, platelet count is 126,000. Creatinine is 1.8, GFR is 27, alkaline phosphatase is 134. The urine culture grew Klebsiella. The leg culture is growing a gram-negative jonna. ASSESSMENT AND PLAN: I have discontinued daptomycin. I have decreased the dose of cefepime because of her increased creatinine and decrease GFR. I agree with Dr. Olivarez that most likely tomorrow we will be able to let the patient go home because I should have the identification and susceptibility data on the gram-negative jonna in the patient's leg. COMORBIDITIES: The patient is elderly. She has colon cancer with metastatic disease. She also has diabetes mellitus and gastroesophageal reflux disease. The patient is in atrial fibrillation. She has chronic edema of the legs, which predisposes her to get cellulitis of the legs. cc: MD Dimitry Gudino MD
[2019-09-14] MEDS: SINGULAIR PO SCH (20:50)
[2019-09-14] MEDS: MAXIPIME 1 GM in NS 50 ML IV SCH (20:52)
[2019-09-15] MEDS: MAXIPIME 1 GM in NS 50 ML IV SCH ×3 (03:00→17:29)
[2019-09-15] MEDS: NS 1,000 ML IV SCH (04:48)
[2019-09-15] MEDS: HUMULIN R SUBQ SCH ×4 (06:52→23:13)
[2019-09-15 07:38] LABS: BASO# 0.02 X1000 (0.0-0.2); BASO% 0.4 % (0.0-0.8); EOS% 8.1 % (0.0-10.0); HEMATOCRIT 26.4 % (37.0-47.0); HEMOGLOBIN 8.1 g/dL (12.0-16.0); IMM GRAN# 0.02 X1000 (0.0-0.04); IMM GRAN% 0.4 % (0.0-0.5); LYMPH# 0.42 X1000 (1.2-3.4); LYMPH% 8.5 % (20.5-51.1); MCH 30.9 PG (27-31); MCHC 30.7 g/dL (33-37); MCV 100.8 FL (81-99); MONO# 0.28 X1000 (0.11-0.59); MONO% 5.6 % (1.7-9.3); MPV 10.3 FL (7.4-10.4); NEUT# 3.82 X1000 (1.4-6.5); PLT 126 X1000 (130-400); RBC 2.62 XMIL (4.2-5.4); RDW 14.7 % (11.5-14.5); WBC 4.96 X1000 (4.8-10.8)
[2019-09-15 07:46] LABS: ALBUMIN 2.7 g/dL (3.5-5.0); CALCIUM 8.3 mg/dL (8.8-10.2); CREATININE 1.6 mg/dL (0.5-0.9); MAGNESIUM 1.4 mg/dL (1.5-2.7); POTASSIUM 5.7 mmol/L (3.5-5.1); TOTAL BILIRUBIN 0.48 mg/dL (0.20-1.00); TOTAL PROTEIN 5.5 g/dL (6.3-8.3)
[2019-09-15] MEDS: DUONEB (A & A) INH PRN ×4 (08:03→20:47)
[2019-09-15] MEDS: NEURONTIN PO SCH ×2 (08:47→23:13)
[2019-09-15] MEDS: FOLIC ACID PO SCH (08:47)
[2019-09-15] MEDS: ICAR-C PO SCH (08:47)
[2019-09-15] MEDS: MULTAQ PO SCH ×2 (08:47→23:13)
[2019-09-15] MEDS: VITAMIN B-12 PO SCH (08:47)
[2019-09-15] MEDS: COREG PO SCH ×2 (08:47→23:13)
[2019-09-15] MEDS: ASPIRIN PO SCH (08:48)
[2019-09-15] MEDS: LANTUS INSULIN SUBQ SCH (08:48)
[2019-09-15] MEDS: LOVENOX SUBQ SCH (08:48)
--- NOTE | 2019-09-15 09:40 | PROGRESS NOTE ---
DATE: 09/15/2019 Ms. Burnett feels much better. She ate all of her breakfast. Her feet and legs feel much better. She is doing physical therapy. She would like to go home with some home health. OBJECTIVE: Vital Signs: Temp 97.7 degrees, pulse 70, respirations 18, blood pressure 114/64. HEENT: Pupils are equal and round. Lungs: Are clear in all lung nix. Cardiovascular: Regular rate without murmur or S3. Urine output is 1200 mL. Blood sugar 143, 176, 125. ASSESSMENT AND PLAN: Cellulitis of the legs, right leg worse than the left. She showed significant improvement. She has also Klebsiella urinary tract infection, so treating with daptomycin and cefepime. Continue physical therapy. We discontinued the daptomycin and decreased the dose of cefepime because of an increase in creatinine. Hopefully can go home soon and micro or the cultures from the left leg grew Klebsiella pneumoniae, and Pseudomonas aeruginosa. Review of her medications: She is on Coreg 6.25 mg b.i.d., aspirin 81 mg a day, Singulair 10 mg at bedtime, folic acid 1 mg daily, iron carbonyl ascorbic acid 1 a day, cefepime 1 g IV q.12, vitamin B12 1000 mcg p.o. daily. Looking at sensitivities, I think both Klebsiella and Pseudomonas should be sensitive to cefepime. cc: Dimitry Gonzalez MD
--- NOTE | 2019-09-15 11:04 | INFECTIOUS DISEASE PROGRESS NO ---
DATE: 09/15/2019 PRESENT ILLNESS: Ms Burnett is being treated for a cellulitis of her bilateral lower extremities, the right leg being much worse than the left. She also has a Klebsiella urinary tract infection. The right leg has grown a Klebsiella as well as a Pseudomonas. MEDICATIONS: She is receiving cefepime 1 g IV every 12 hours as a renally modified dose. PHYSICAL EXAMINATION: Vital Signs: Temperature is 97.7 degrees, pulse rate 70, respiratory rate 18, blood pressure 114/64, O2 saturation is 96% on room air. General: This is an elderly, chronically ill-appearing female. She is lying in the bed, currently in no acute distress. HEENT: Atraumatic, normocephalic. Oral mucous membranes are pink and moist. She is edentulous. Conjunctivae are pale. Neck: Supple. Trachea is midline. Cardiovascular: Heart rate is regular. S1, S2 noted. Respiratory: Lung sounds have wheezing throughout. There is no work of breathing noted. Abdomen: Soft, obese and nontender. Bowel sounds are active. Integumentary: Skin is warm and dry. Bilateral lower extremity erythema is noted to the calves with worsening erythema and some induration noted to the right lower extremity. There is a Port-A-Cath in place to the right chest. That site is without edema, erythema, or drainage. Neurologic: She is awake, alert, and oriented but forgetful. Able to move all extremities in the bed independently. LABORATORY AND X-RAY: Today her white count is 4.96, hemoglobin 8.1, platelet count 126,000. Creatinine is 1.6. GFR 31. Total bilirubin is 0.48, AST 32, ALT 20, alkaline phosphatase 146. Creatine kinase is 27. Her right leg has grown a Klebsiella pneumoniae and a Pseudomonas aeruginosa. The urine has grown a Klebsiella pneumoniae. No imaging reports today. ASSESSMENT AND PLAN: Ms. Burnett is being treated for a urinary tract infection as well as bilateral lower extremity cellulitis. She has seen some significant improvement to the lower extremities. After talking with Dr. Gonzalez, the plan is to possibly send her home tomorrow. We at first wanted to send her home on Levaquin but because of her cardiac medications, we will have to send her out on the cefepime. Her GFR is better today so we will increase the dose to 1 g IV every 8 hours. If discharged tomorrow, she will need another 10 days of treatment for her UTI and cellulitis, after which time we will see her in the office. I have consulted [facility] for medications to be provided at home. She does live alone, but states her daughter has been helping her at home. These plans have been discussed with and recommended by Dr. Pruitt. COMORBIDITIES: Include that she is elderly with diabetes mellitus, gastroesophageal reflux disease and colon cancer. Dictated by ZAINA Torres for Zachary Pruitt MD cc: MD Dimitry Gudino MD
[2019-09-15] MEDS: MYCOSTATIN CREAM TOP SCH ×2 (14:10→23:16)
--- NOTE | 2019-09-15 16:45 | GENERAL SURGERY PROGRESS NOTE ---
DATE: 09/15/2019 SUBJECTIVE: The patient is doing well. She feels better. Her leg is not hurting as much. OBJECTIVE: Vital Signs: She is afebrile. Vital signs are stable. General: She is awake, alert, oriented x3, in no acute distress. Extremities: The right leg swelling is much improved, as well the cellulitis. LABORATORY: CBC and metabolic profile reviewed and notable for a normal white blood cell count, and BUN of 46 and creatinine 1.6. Her leg culture revealed Klebsiella pneumoniae and Pseudomonas aeruginosa. Her urine culture revealed Klebsiella pneumoniae. ASSESSMENT AND PLAN: 79-year-old female with right leg cellulitis which is improving. She has asymptomatic UTI. Dr. Pruitt is recommending a PICC line and 10 more days of IV antibiotic treatment with cefepime to treat her UTI and cellulitis. We will check her BUN and creatinine tomorrow, and if they continue to improve we will get her out tomorrow. For wound care she will just cover the wounds with gauze pads and wraps and change this out daily or as needed. cc: MD Dimitry Hernandez MD
[2019-09-15] MEDS: SINGULAIR PO SCH (23:13)
[2019-09-16] MEDS: DUONEB (A & A) INH PRN ×5 (00:48→20:09)
[2019-09-16] MEDS: MAXIPIME 1 GM in NS 50 ML IV SCH ×3 (02:32→23:41)
[2019-09-16 07:42] LABS: BASO# 0.03 X1000 (0.0-0.2); BASO% 0.6 % (0.0-0.8); EOS# 0.39 X1000 (0.0-0.7); EOS% 8.2 % (0.0-10.0); HEMATOCRIT 26.6 % (37.0-47.0); HEMOGLOBIN 8.1 g/dL (12.0-16.0); IMM GRAN# 0.03 X1000 (0.0-0.04); IMM GRAN% 0.6 % (0.0-0.5); LYMPH% 6.3 % (20.5-51.1); MCHC 30.5 g/dL (33-37); MCV 101.9 FL (81-99); MONO# 0.29 X1000 (0.11-0.59); MONO% 6.1 % (1.7-9.3); MPV 10.5 FL (7.4-10.4); NEUT# 3.72 X1000 (1.4-6.5); NEUT% 78.2 % (42.2-75.2); PLT 135 X1000 (130-400); RBC 2.61 XMIL (4.2-5.4); RDW 14.8 % (11.5-14.5); WBC 4.76 X1000 (4.8-10.8)
[2019-09-16] MEDS: HUMULIN R SUBQ SCH ×4 (07:46→23:35)
[2019-09-16 08:06] LABS: ALB/GLOB RATIO 1.2; ALBUMIN 2.8 g/dL (3.5-5.0); CALCIUM 8.5 mg/dL (8.8-10.2); CREATININE 1.4 mg/dL (0.5-0.9); MAGNESIUM 1.4 mg/dL (1.5-2.7); TOTAL BILIRUBIN 0.44 mg/dL (0.20-1.00); TOTAL PROTEIN 5.1 g/dL (6.3-8.3)
[2019-09-16 08:07] LABS: POTASSIUM 6.4 mmol/L (3.5-5.1)
[2019-09-16] MEDS ORDERED: VELTASSA PO ONE (08:12)
[2019-09-16] MEDS ORDERED: SODIUM BICARBONATE 8.4% IV PUSH ONE (08:13)
--- NOTE | 2019-09-16 11:11 | PROGRESS NOTE ---
DATE: 09/16/2019 SUBJECTIVE: Ms Burnett feels better. She is sitting up in a chair. Swelling has gone down in her feet, and I think she is ready go home if we can get her antibiotics set up. OBJECTIVE: Vital Signs: Her temperature is 98.0 degrees, pulse 70, respirations 20, blood pressure 104/49. Eyes: Pupils are equal and round. Lungs: Lungs are clear in all lung nix. Cardiovascular exam: Regular rhythm and rate without murmur or S3. Abdomen: Abdomen is soft. Skin: Skin is warm and dry. : Urine output is 1900 mL. Blood sugar 176, 144 and 99. ASSESSMENT AND PLAN: 1. Treated for cellulitis of bilateral lower extremities, right leg being much worse than the left. 2. She had Klebsiella urinary tract infection. Right side grew out Klebsiella and Pseudomonas, so she is on cefepime 1 gram every 12 hours renally-modified dose, and I believe we could send her home on Levaquin. I think because of cardiac medications, he wants to send her out on cefepime. Glomerular filtration rate is better today, and 1 gram intravenous every 8 hours. She will need another 10 days for her urinary tract infection. I will discuss with Dr. Pruitt. If the concern is the Levaquin because of her cardiac medications, I think she will be fine with another 10 days of oral Levaquin. I am not sure we have to pursue intravenous cefepime, so we will look to doing that today. Looking back at her EKG, we will check a baseline EKG and see if we can pursue Levaquin and get Home Health. cc: Dimitry Gonzalez MD
--- NOTE | 2019-09-16 13:08 | GENERAL SURGERY PROGRESS NOTE ---
DATE: 09/16/2019 SUBJECTIVE: The patient is feeling much better. OBJECTIVE: She is afebrile. Vital signs are stable.General: She is awake, alert, oriented x3. No acute distress. Extremities: The right leg swelling is much improved. The erythema is improved. There is no weeping noted now. The leg appears dry. LABORATORY: White blood cell count 4.7, hemoglobin 8.1, hematocrit 26. Electrolytes reviewed. Notable for potassium of 6.4, BUN 43, creatinine 1.4. ASSESSMENT AND PLAN: 79-year-old female with right lower extremity cellulitis, much improved urinary tract infection and now hyperkalemia. From a surgical standpoint, she has no acute surgical indications. We are awaiting stabilization of her potassium and outpatient antibiotic administration set up. Once these are achieved, she will be discharged. I will leave this to Dr. Pruitt and Dr. Gonzalez. cc: MD Dimitry Hernandez MD
[2019-09-16] MEDS: VITAMIN B-12 PO SCH (13:38)
[2019-09-16] MEDS: LOVENOX SUBQ SCH (13:38)
[2019-09-16] MEDS: COREG PO SCH ×2 (13:38→23:41)
[2019-09-16] MEDS: ICAR-C PO SCH (13:38)
[2019-09-16] MEDS: MULTAQ PO SCH ×2 (13:38→23:41)
[2019-09-16] MEDS: ASPIRIN PO SCH (13:38)
[2019-09-16] MEDS: NEURONTIN PO SCH ×2 (13:38→23:40)
[2019-09-16] MEDS: FOLIC ACID PO SCH (13:39)
[2019-09-16] MEDS: LANTUS INSULIN SUBQ SCH (13:39)
--- NOTE | 2019-09-16 17:25 | EKG Report ---
Test Performed on : 09/16/2019 3:01:28 PM Test Reason : CP Blood Pressure : / mmHG Vent. Rate : 081 BPM Atrial Rate : 087 BPM P-R Int : 000 ms QRS Dur : 088 ms QT Int : 352 ms P-R-T Axes : 000 066 036 degrees QTc Int : 408 ms Atrial fibrillation. Abnormal ECG When compared with ECG of 05-MAY-2018 11:10, Criteria for Septal infarct are no longer present Nonspecific T wave abnormality no longer evident in Anterior leads Confirmed by Davi RAMEY, Pablo King ([id number]) on 09/18/2019 9:28:37 AM
[2019-09-16] MEDS: NS 1,000 ML IV SCH (19:44)
[2019-09-16] MEDS: MYCOSTATIN CREAM TOP SCH (19:44)
[2019-09-16] MEDS: SINGULAIR PO SCH (23:41)
[2019-09-17] MEDS: MYCOSTATIN CREAM TOP SCH ×3 (03:43→21:16)
[2019-09-17] MEDS: NS 1,000 ML IV SCH (05:46)
[2019-09-17 07:20] LABS: BASO# 0.02 X1000 (0.0-0.2); BASO% 0.4 % (0.0-0.8); EOS# 0.37 X1000 (0.0-0.7); EOS% 7.7 % (0.0-10.0); HEMOGLOBIN 8.2 g/dL (12.0-16.0); IMM GRAN# 0.03 X1000 (0.0-0.04); IMM GRAN% 0.6 % (0.0-0.5); LYMPH# 0.34 X1000 (1.2-3.4); LYMPH% 7.1 % (20.5-51.1); MCH 31.1 PG (27-31); MCHC 30.4 g/dL (33-37); MCV 102.3 FL (81-99); MONO# 0.31 X1000 (0.11-0.59); MONO% 6.4 % (1.7-9.3); MPV 10.2 FL (7.4-10.4); NEUT# 3.74 X1000 (1.4-6.5); NEUT% 77.8 % (42.2-75.2); PLT 135 X1000 (130-400); RBC 2.64 XMIL (4.2-5.4); WBC 4.81 X1000 (4.8-10.8)
[2019-09-17] MEDS: HUMULIN R SUBQ SCH ×3 (07:41→18:32)
[2019-09-17] MEDS: MAXIPIME 1 GM in NS 50 ML IV SCH ×2 (07:41→10:44)
[2019-09-17 08:17] LABS: ALBUMIN 2.9 g/dL (3.5-5.0); CALCIUM 8.9 mg/dL (8.8-10.2); CREATININE 1.4 mg/dL (0.5-0.9); MAGNESIUM 1.4 mg/dL (1.5-2.7); TOTAL BILIRUBIN 0.46 mg/dL (0.20-1.00); TOTAL PROTEIN 5.9 g/dL (6.3-8.3)
[2019-09-17 08:18] LABS: POTASSIUM 6.7 mmol/L (3.5-5.1)
--- NOTE | 2019-09-17 10:27 | GENERAL SURGERY PROGRESS NOTE ---
DATE: 09/17/2019 SUBJECTIVE: The patient is doing well. She denies chest pain. Her leg feels much better. OBJECTIVE: Vital signs: She is afebrile. Vital signs are stable. Extremities: The right leg was examined. It appears dry. There is no significant drainage. The erythema has improved. She still has 2+ pitting edema bilaterally. She is not elevating her legs regularly as ordered. LABORATORY DATA: White cell count 4.8, potassium remains 6.7, BUN 39, and creatinine 1.4. ASSESSMENT AND PLAN: This is a 79-year-old female with severe cellulitis, which has improved greatly. I think she can be switched to oral antibiotics. We will see what Dr. Pruitt recommends. However, she continues to have hyperkalemia, which I will defer to Dr. Gonzalez. I have recommended compression hose for her legs and the edema. cc: MD Dimitry Hernandez MD
[2019-09-17] MEDS: FOLIC ACID PO SCH (10:44)
[2019-09-17] MEDS: ASPIRIN PO SCH (10:44)
[2019-09-17] MEDS: VITAMIN B-12 PO SCH (10:44)
[2019-09-17] MEDS: LOVENOX SUBQ SCH (10:45)
[2019-09-17] MEDS: COREG PO SCH (10:45)
[2019-09-17] MEDS: ICAR-C PO SCH (10:45)
[2019-09-17] MEDS: NEURONTIN PO SCH (10:45)
[2019-09-17] MEDS: MULTAQ PO SCH (10:45)
[2019-09-17] MEDS: LANTUS INSULIN SUBQ SCH (10:50)
[2019-09-17] MEDS: DUONEB (A & A) INH PRN ×3 (11:06→20:31)
--- NOTE | 2019-09-17 13:58 | PROGRESS NOTE ---
DATE: 09/17/2019 SUBJECTIVE: Ms. Burnett was sleeping, resting comfortably. She says she is feeling better overall. OBJECTIVE: Temperature 97.9 degrees, pulse 80, respirations 20, blood pressure 139/62. Pupils are equal and round. Lungs are clear in all lung nix. Cardiovascular Examination: Regular rhythm and rate without murmur or S3. Urine output is 3 L. ASSESSMENT AND PLAN: 1. Her legs look much better and so I think she can go home when we decide what we are going to do about the antibiotics. We will see if we can switch her to oral antibiotics. 2. Hyperkalemia. She is not getting any potassium supplement and so I am going to give her some Veltassa again and we will see about arrangements for going home. cc: Dimitry Gonzalez MD
--- NOTE | 2019-09-17 16:00 | INFECTIOUS DISEASE PROGRESS NO ---
DATE: 09/17/2019 PRESENT ILLNESS: The patient has a Klebsiella and Pseudomonas right leg cellulitis and a Klebsiella urinary tract infection. MEDICATIONS: The patient is receiving cefepime. PHYSICAL EXAMINATION: Vital Signs: Temperature is 97.9 degrees, pulse 88, respirations 20, blood pressure is 139/62. General: This is an ill-appearing elderly female. She is in no acute distress. Head/eyes/ears/nose/throat: She can hear my spoken words and see near objects. Neck: No pain with movement. Lungs: Clear to auscultation. Cardiovascular: Heart rate is regular. Abdomen: Soft and nontender. Extremities: The right leg has dramatically gotten better. It is much less erythematous and it is not draining, either. Neurologic: Patient is alert. She can move her extremities. There is no tremor. LAB AND X-RAY: There is no new radiographic study. The CBC shows a white count of 4810, hemoglobin 8.2, platelet count 135,000, creatinine is 1.4. GFR is 36.The chest x-ray shows pulmonary edema and cardiomegaly. ASSESSMENT AND PLAN: The patient has right leg cellulitis and urinary tract infection. My plan would be to continue with cefepime 2 g IV every 12 hours for another 2 weeks. The patient organisms are both sensitive to Levaquin but unfortunately it interacts adversely with some of her other medications. COMORBIDITIES: The patient has diabetes, gastroesophageal reflux disease, and colon cancer. cc: MD Dimitry Gudino MD MTDD
[2019-09-17] MEDS: VELTASSA PO SCH ×2 (16:08→21:44)
[2019-09-17] MEDS ORDERED: LASIX IV ONE (16:10)
[2019-09-17] MEDS ORDERED: MAXIPIME 2 GM/NS 2 GM/100 ML IVPB IV SCH (17:00)
[2019-09-17] MEDS: MAXIPIME 2 GM/NS 2 GM/100 ML IVPB IV SCH (21:47)
[2019-09-18] MEDS: HUMULIN R SUBQ SCH ×5 (04:13→23:54)
[2019-09-18] MEDS: MULTAQ PO SCH ×3 (04:14→21:05)
[2019-09-18] MEDS: COREG PO SCH ×3 (04:14→21:05)
[2019-09-18] MEDS: SINGULAIR PO SCH ×2 (04:15→21:05)
[2019-09-18] MEDS: NS 1,000 ML IV SCH (04:15)
[2019-09-18] MEDS: NEURONTIN PO SCH ×3 (04:15→21:05)
[2019-09-18] MEDS: DUONEB (A & A) INH PRN ×3 (07:40→20:01)
[2019-09-18 08:16] LABS: BASO# 0.03 X1000 (0.0-0.2); BASO% 0.6 % (0.0-0.8); EOS# 0.39 X1000 (0.0-0.7); EOS% 7.9 % (0.0-10.0); HEMATOCRIT 27.2 % (37.0-47.0); HEMOGLOBIN 8.3 g/dL (12.0-16.0); IMM GRAN# 0.08 X1000 (0.0-0.04); IMM GRAN% 1.6 % (0.0-0.5); LYMPH# 0.37 X1000 (1.2-3.4); LYMPH% 7.5 % (20.5-51.1); MCH 31.1 PG (27-31); MCHC 30.5 g/dL (33-37); MCV 101.9 FL (81-99); MONO# 0.33 X1000 (0.11-0.59); MONO% 6.7 % (1.7-9.3); MPV 10.2 FL (7.4-10.4); NEUT# 3.75 X1000 (1.4-6.5); NEUT% 75.7 % (42.2-75.2); PLT 125 X1000 (130-400); RBC 2.67 XMIL (4.2-5.4); RDW 14.9 % (11.5-14.5); WBC 4.95 X1000 (4.8-10.8)
[2019-09-18] MEDS: ICAR-C PO SCH (09:04)
[2019-09-18] MEDS: VITAMIN B-12 PO SCH (09:04)
[2019-09-18] MEDS: LANTUS INSULIN SUBQ SCH (09:05)
[2019-09-18] MEDS: LOVENOX SUBQ SCH (09:05)
[2019-09-18] MEDS: MAXIPIME 2 GM/NS 2 GM/100 ML IVPB IV SCH ×2 (09:05→21:11)
[2019-09-18] MEDS: ASPIRIN PO SCH (09:05)
[2019-09-18] MEDS: FOLIC ACID PO SCH (09:05)
[2019-09-18 09:09] LABS: ALB/GLOB RATIO 1.1; ALBUMIN 3.1 g/dL (3.5-5.0); CALCIUM 9.6 mg/dL (8.8-10.2); CREATININE 1.2 mg/dL (0.5-0.9); MAGNESIUM 1.1 mg/dL (1.5-2.7); TOTAL BILIRUBIN 0.47 mg/dL (0.20-1.00)
[2019-09-18 09:16] LABS: POTASSIUM 6.4 mmol/L (3.5-5.1)
[2019-09-18] MEDS: VELTASSA PO SCH ×2 (12:37→23:55)
[2019-09-18] MEDS: MYCOSTATIN CREAM TOP SCH ×2 (12:38→21:06)
--- NOTE | 2019-09-18 13:07 | INFECTIOUS DISEASE PROGRESS NO ---
DATE: 09/18/2019 PRESENT ILLNESS: The patient has a Klebsiella and Pseudomonas right leg cellulitis, and the patient has a Klebsiella urinary tract infection. MEDICATIONS: The patient is receiving IV cefepime. PHYSICAL EXAMINATION: Vital Signs: Temperature is 98.1 degrees, pulse 92, respirations 14, blood pressure 118/39. General: This is an ill-appearing elderly female. She is in no acute distress. Head/Eyes/Ears/Nose/Throat: She can hear my spoken words and see near objects. I did not notice any white patches in her mouth. Neck: No stiffness. Lungs: Clear to auscultation. Cardiovascular: Heart rate is regular. Abdomen: Soft and nontender. Extremities: The right leg continues to improve. It is less swollen and less erythematous and also the drainage from the leg has come down quite a bit also. Neurologic: The patient is alert. She can move her extremities. There is no tremor. LAB AND X-RAY: The patient's CBC shows a white count of 4950, hemoglobin 8.3, and platelet count 125,000. Creatinine is 1.2. GFR is 43. Alkaline phosphatase is 185. The culture from the patient's right leg grew Klebsiella and Pseudomonas, and from the urine, Klebsiella was isolated. ASSESSMENT AND PLAN: Patient has right leg cellulitis and urinary tract infection. I plan to continue cefepime. The patient's organisms are both susceptible to Levaquin, but unfortunately Levaquin interacts adversely with some of the patient's other medications. COMORBIDITIES: Diabetes mellitus, gastroesophageal reflux disease, and colon cancer. cc: MD Dimitry Gudino MD
--- NOTE | 2019-09-18 17:56 | PROGRESS NOTE ---
DATE: 09/18/2019 SUBJECTIVE: Ms. Burnett is feeling much better and she still feels pretty weak, difficulty ambulating. She is eating. Her bowels are moving good. OBJECTIVE: Vital Signs: She remains afebrile, temperature is 98 degrees, pulse 77, respirations 14, blood pressure 116/48. HEENT: Pupils are equal and round. No distended neck veins. Lungs: Clear in all lung nix. Cardiovascular: Regular rhythm and rate without murmur or S3. Abdomen: Soft. Skin: Warm and dry. Urine output is 1400 mL. ASSESSMENT AND PLAN: 1. Patient with Klebsiella and Pseudomonas in the right leg cellulitis. The patient has had Klebsiella urinary tract infection, is receiving intravenous cefepime, which we would like to continue so plan is to continue cefepime and see if we can get her to rehab. 2. General weakness, deconditioning. Continue her rehab. 3. Hyperkalemia. She is not getting any potassium supplement. I have her on Veltassa. Potassium still about 6.4 this morning. We did give her a little Lasix yesterday. Blood sugars appear well controlled. 4. Review of orders. Getting aspirin 81 mg a day. She is on DuoNeb. She is on cefepime 2 g IV q.12h, Multaq 400 mg b.i.d., folic acid 1 mg daily and getting Veltassa 8.4 g p.o. b.i.d. Waiting on rehab possibilities. cc: Dimitry Gonzalez MD
[2019-09-19] MEDS: VELTASSA PO SCH ×2 (00:11→13:47)
[2019-09-19] MEDS: NS 1,000 ML IV SCH ×2 (03:39→19:58)
[2019-09-19] MEDS: HUMULIN R SUBQ SCH ×4 (06:49→22:40)
[2019-09-19] MEDS ORDERED: MAALOX PLUS LIQUID PO PRN (09:15)
--- NOTE | 2019-09-19 09:31 | PROGRESS NOTE ---
DATE: 09/19/2019 SUBJECTIVE: Ms. Burnett is having heartburn. She does not feel good today, but a lot of acid reflux and heartburn, so I am going to put her on high-dose proton pump inhibitor. We are going to let her use some Maalox as needed. OBJECTIVE: Vital Signs: Temp 98.3 degrees, pulse 89, respirations 20, blood pressure 124/54. HEENT: Pupils are equal and round. Lungs: Clear in all lung nix. Cardiovascular: Regular rhythm and rate without murmur or S3. Abdomen: Soft. Skin: Warm and dry. Urine output is 1100 mL. ASSESSMENT AND PLAN: 1. Came in with Klebsiella and Pseudomonas, right leg cellulitis, and Klebsiella urinary tract infection. She is on intravenous cefepime, which we will continue. 2. General weakness and deconditioning. Continue to rehab. Would like to go to rehab, where we can give her intravenous antibiotic. 3. Hyperkalemia. Have been giving her Valtessa, and we will check another potassium today. 4. Nutrition is good. 5. Complaining of heartburn and gastroesophageal reflux. Legs are doing well. Waiting on rehab. Continue present antibiotic. Not sure why her potassium stays high. She may have a renal tubular acidosis. Looking back at her lab, renal function looks good, creatinine 1.2, her bicarb is 19, so we will put her on oral Protonix 40 mg twice a day, and let her have some Maalox as needed. cc: Dimitry Gonzalez MD
[2019-09-19] MEDS ORDERED: LASIX IV ONE (10:33)
[2019-09-19] MEDS: ICAR-C PO SCH (10:41)
[2019-09-19] MEDS: VITAMIN B-12 PO SCH (10:41)
[2019-09-19] MEDS: NEURONTIN PO SCH ×2 (10:41→22:55)
[2019-09-19] MEDS: FOLIC ACID PO SCH (10:41)
[2019-09-19] MEDS: ZOFRAN IV PRN (10:41)
[2019-09-19] MEDS: ASPIRIN PO SCH (10:41)
[2019-09-19] MEDS: LOVENOX SUBQ SCH (10:42)
[2019-09-19] MEDS: MULTAQ PO SCH ×2 (10:42→22:56)
[2019-09-19] MEDS: LANTUS INSULIN SUBQ SCH (10:42)
[2019-09-19] MEDS: COREG PO SCH ×2 (10:42→22:55)
[2019-09-19] MEDS: MAXIPIME 2 GM/NS 2 GM/100 ML IVPB IV SCH ×2 (10:50→22:30)
[2019-09-19] MEDS: PROTONIX PO SCH ×2 (10:51→22:56)
[2019-09-19] MEDS: MYCOSTATIN CREAM TOP SCH ×2 (10:51→22:56)
[2019-09-19] MEDS: DUONEB (A & A) INH PRN ×2 (12:07→23:35)
--- NOTE | 2019-09-19 19:39 | INFECTIOUS DISEASE PROGRESS NO ---
DATE: 09/19/2019 PRESENT ILLNESS: The patient has a Klebsiella urinary tract infection and a Klebsiella and Pseudomonas right leg cellulitis. MEDICATIONS: The patient is on cefepime. The patient has been getting IV antibiotic for 8 days. Her legs have gotten better. PHYSICAL EXAMINATION: Vital Signs: Temperature is 97.9 degrees, pulse 92, respirations 16, blood pressure 140/66. General: This is an ill-appearing elderly female. She is in no acute distress. Head/eyes/ears/nose/throat: Can hear my spoken words and see near objects. She does not have any white patches in her mouth. Neck: No pain with movement. Lungs: Clear to auscultation. Cardiovascular: The heart rate is irregular today. Abdomen: Soft and not tender. Extremities: The patient has a large dressing on the right leg. What is visible of the leg is erythematous and the left leg is erythematous also. Neurologic: Patient is alert. She can move her extremities. There is no tremor. LAB AND X-RAY: There is no lab or radiographic study ordered. ASSESSMENT AND PLAN: Patient has leg cellulitis and urinary tract infection. I am going to continue the current antibiotics. COMORBIDITIES: Diabetes mellitus, gastroesophageal reflux disease, and colon cancer. cc: MD Dimitry Gudino MD
--- NOTE | 2019-09-19 22:08 | GENERAL SURGERY PROGRESS NOTE ---
DATE: 09/19/2019 SUBJECTIVE: The patient feels well. No acute complaints or events. OBJECTIVE: She is afebrile. Vital signs are stable.General: She is awake, alert, oriented x3. No acute distress. Extremities: The legs are much improved with mild edema. No significant erythema or weeping at this point. LABORATORY: Potassium is 6.3. ASSESSMENT AND PLAN: A 79-year-old female admitted for severe cellulitis as well as a urinary tract infection. She has improved. She is having persistent hyperkalemia of unclear etiology. Dr. Gonzalez has put her on [facility] and we are awaiting rehab placement. cc: MD Dimitry Hernandez MD
[2019-09-19] MEDS: SINGULAIR PO SCH (22:55)
[2019-09-20] MEDS: VELTASSA PO SCH ×4 (00:49→20:48)
[2019-09-20] MEDS: HUMULIN R SUBQ SCH ×3 (06:20→17:43)
[2019-09-20 07:19] LABS: BASO# 0.03 X1000 (0.0-0.2); BASO% 0.7 % (0.0-0.8); EOS# 0.36 X1000 (0.0-0.7); EOS% 8.6 % (0.0-10.0); HEMATOCRIT 26.3 % (37.0-47.0); HEMOGLOBIN 8.1 g/dL (12.0-16.0); IMM GRAN# 0.06 X1000 (0.0-0.04); IMM GRAN% 1.4 % (0.0-0.5); LYMPH# 0.39 X1000 (1.2-3.4); LYMPH% 9.3 % (20.5-51.1); MCH 31.4 PG (27-31); MCHC 30.8 g/dL (33-37); MCV 101.9 FL (81-99); MONO# 0.32 X1000 (0.11-0.59); MONO% 7.7 % (1.7-9.3); MPV 10.2 FL (7.4-10.4); NEUT# 3.02 X1000 (1.4-6.5); NEUT% 72.3 % (42.2-75.2); PLT 117 X1000 (130-400); RBC 2.58 XMIL (4.2-5.4); WBC 4.18 X1000 (4.8-10.8)
[2019-09-20 07:43] LABS: CALCIUM 9.5 mg/dL (8.8-10.2); CREATININE 1.3 mg/dL (0.5-0.9); MAGNESIUM 1.1 mg/dL (1.5-2.7); POTASSIUM 5.9 mmol/L (3.5-5.1)
[2019-09-20] MEDS: MAXIPIME 2 GM/NS 2 GM/100 ML IVPB IV SCH ×2 (08:30→21:58)
[2019-09-20] MEDS: MYCOSTATIN CREAM TOP SCH ×2 (08:30→20:56)
[2019-09-20] MEDS: MULTAQ PO SCH (08:31)
[2019-09-20] MEDS: ASPIRIN PO SCH (08:31)
[2019-09-20] MEDS: FOLIC ACID PO SCH (08:31)
[2019-09-20] MEDS: VITAMIN B-12 PO SCH (08:31)
[2019-09-20] MEDS: ICAR-C PO SCH (08:31)
[2019-09-20] MEDS: NEURONTIN PO SCH (08:31)
[2019-09-20] MEDS: LANTUS INSULIN SUBQ SCH (08:32)
[2019-09-20] MEDS: LOVENOX SUBQ SCH (08:32)
[2019-09-20] MEDS: PROTONIX PO SCH (08:32)
[2019-09-20] MEDS: COREG PO SCH (08:32)
[2019-09-20] MEDS ORDERED: LASIX IV ONE (09:39)
--- NOTE | 2019-09-20 10:02 | PROGRESS NOTE ---
DATE: 09/20/2019 SUBJECTIVE: Ms. Burnett is feeling better, stronger, sitting up in a chair. We are waiting for rehab opportunities that will allow us to give IV antibiotic. OBJECTIVE: Vital Signs: Temperature 97.7 degrees, pulse 77, respirations 18, blood pressure 123/61. HEENT: Pupils are equal and round. Neck: No distended neck veins. Lungs: Clear anterolateral. Cardiovascular: Regular rhythm and rate without murmur or S3. Abdomen: Soft. Skin: Warm and dry. Urine output was about 800 mL. ASSESSMENT AND PLAN: 1. Patient with Klebsiella urinary tract infection and Klebsiella with Pseudomonas right leg cellulitis. She is on cefepime intravenously, and she has received this now. This will be the ninth day. Legs have gotten better. Continue present antibiotics. Looking for rehab possibilities. 2. Diabetes mellitus type 2. Sugar is under good control. 3. General weakness and deconditioning. Would benefit from some rehab and physical therapy. 4. Hyperkalemia. We have her on Valtessa, and the potassium is 5.9 this morning. We will decrease her fluids, and give her another dose of Lasix this morning. She is on iron. Her hematocrit is stable at 26, hemoglobin 8.1, with an MCV of 101. cc: Dimitry Gonzalez MD
--- NOTE | 2019-09-20 19:42 | GENERAL SURGERY PROGRESS NOTE ---
DATE: 09/20/2019 SUBJECTIVE: The patient has no new complaints. She feels well. Her legs are not bothering her. OBJECTIVE: She is afebrile. Vital signs are stable. Generally she is awake, alert and oriented x3, in no acute distress. Extremities: The right leg cellulitis is much improved. There remains some 1 to 2+ edema in the feet. LABORATORY DATA: Potassium is 5.9. ASSESSMENT AND PLAN: A 79-year-old female with severe right leg cellulitis. This has improved greatly. She has had persistent hyperkalemia which is now improved. We are awaiting rehab placement. cc: MD Dimitry Hernandez MD
--- NOTE | 2019-09-20 20:58 | INFECTIOUS DISEASE PROGRESS NO ---
DATE: 09/20/2019 PRESENT ILLNESS: The patient has a Klebsiella urinary tract infection and a Klebsiella and Pseudomonas right leg cellulitis. MEDICATIONS: The patient has been on IV cefepime. This is day 9 of treatment. PHYSICAL EXAMINATION: Vital Signs: Temperature is 98.3 degrees, pulse 69, respirations 20, blood pressure 96/36. General: This is a ill-appearing elderly female. She is in no acute distress. Head/eyes/ears/nose/throat: She can hear my spoken words and see near objects. There is no white coating of her tongue. Neck: No pain with movement of the neck. Lungs: Clear to auscultation. Cardiovascular: Heart rate at times appeared regular and other times it appeared irregular. Abdomen: Soft and nontender. Extremities: The patient's left leg today does is not erythematous. The distal part of the patient's right leg has a large dressing around it and above it. There also is no further erythema today. Neurologic: Patient is alert. She can move her extremities. She talks in a coherent fashion. LAB AND X-RAY: CBC shows a white count of 4180, hemoglobin 8.1, platelet count a 117,000. Creatinine is 1.3. GFR is 40. There is no new radiographic study. ASSESSMENT AND PLAN: Patient has urinary tract infection, leg cellulitis and previously had oral candidiasis which has healed. The plan is to continue cefepime now for one week. COMORBIDITIES: The patient is a diabetic. She has gastroesophageal reflux disease and colon cancer. cc: MD Dimitry Gudino MD
[2019-09-21] MEDS: NEURONTIN PO SCH ×3 (00:16→22:04)
[2019-09-21] MEDS: PROTONIX PO SCH ×3 (00:16→22:04)
[2019-09-21] MEDS: SINGULAIR PO SCH ×2 (00:16→22:04)
[2019-09-21] MEDS: MULTAQ PO SCH ×3 (00:16→22:04)
[2019-09-21] MEDS: COREG PO SCH ×3 (00:17→22:04)
[2019-09-21] MEDS: HUMULIN R SUBQ SCH ×5 (00:43→23:54)
[2019-09-21] MEDS: LOVENOX SUBQ SCH (09:47)
[2019-09-21] MEDS: VITAMIN B-12 PO SCH (09:47)
[2019-09-21] MEDS: LANTUS INSULIN SUBQ SCH (09:47)
[2019-09-21] MEDS: ICAR-C PO SCH (09:48)
[2019-09-21] MEDS: FOLIC ACID PO SCH (09:48)
[2019-09-21] MEDS: ASPIRIN PO SCH (09:48)
[2019-09-21] MEDS: MAXIPIME 2 GM/NS 2 GM/100 ML IVPB IV SCH ×2 (09:51→22:03)
[2019-09-21] MEDS: MYCOSTATIN CREAM TOP SCH ×2 (09:51→22:05)
[2019-09-21] MEDS ORDERED: LASIX IV ONE (09:52)
--- NOTE | 2019-09-21 10:23 | PROGRESS NOTE ---
DATE: 09/21/2019 Ms. Burnett is sitting up in a chair. She feels comfortable. Feels good. No complaints of pain. Remains afebrile. OBJECTIVE: Vital Signs: Temperature 99.1 degrees, pulse 70, respirations 20, blood pressure 114/42. HEENT: Pupils are equal and round. Lungs: Are clear in all lung nix. Cardiovascular: Regular rhythm and rate without murmur or S3. Abdomen: Is soft. Skin: Is warm and dry. ASSESSMENT AND PLAN: 1. Patient with Klebsiella urinary tract infection, Klebsiella and Pseudomonas. Right leg cellulitis. This is day 10 of cefepime, so she is pretty close to finishing out her antibiotic. 2. General weakness and deconditioning. Continue physical therapy. Seems to be doing better. 3. Severe right leg cellulitis is resolved. 4. Diabetes mellitus type 2. Sugars look under good control. 5. Hyperkalemia. We have her on Veltassa. Her potassium is coming down. Yesterday it was 5.9. We have also give her some Lasix. We will give her another dose of IV Lasix today. cc: Dimitry Gonzalez MD
[2019-09-21] MEDS: VELTASSA PO SCH (13:00)
--- NOTE | 2019-09-21 16:11 | GENERAL SURGERY PROGRESS NOTE ---
DATE: 09/21/2019 SUBJECTIVE: The patient has no new complaints. She is doing well. OBJECTIVE: She is afebrile. Vital signs are stable. General: She is awake, alert, oriented, oriented x3. No acute distress. Respiratory: Bilateral equal breath sounds. No increased work of breathing. No wheezes or rales. Extremities: The swelling in the legs is mild. The cellulitis is much improved. ASSESSMENT/PLAN: 1. Urinary tract infection on cefepime. 2. Right leg cellulitis on cefepime. 3. Generalized weakness and deconditioning. She is continuing with physical therapy and improving. 4. Type 2 diabetes. Her sugars are well controlled. 5. Hyperkalemia. The potassium is coming down. She is getting another dose of IV Lasix today. 6. We are awaiting rehab placement. cc: MD Dimitry Hernandez MD
[2019-09-22] MEDS: VELTASSA PO SCH ×3 (01:02→21:24)
[2019-09-22] MEDS: HUMULIN R SUBQ SCH ×4 (07:02→21:23)
[2019-09-22 07:57] LABS: BASO# 0.02 X1000 (0.0-0.2); BASO% 0.4 % (0.0-0.8); EOS# 0.32 X1000 (0.0-0.7); EOS% 7.1 % (0.0-10.0); HEMATOCRIT 24.8 % (37.0-47.0); HEMOGLOBIN 7.7 g/dL (12.0-16.0); IMM GRAN# 0.05 X1000 (0.0-0.04); IMM GRAN% 1.1 % (0.0-0.5); LYMPH# 0.32 X1000 (1.2-3.4); LYMPH% 7.1 % (20.5-51.1); MCH 31.8 PG (27-31); MCV 102.5 FL (81-99); MONO# 0.29 X1000 (0.11-0.59); MONO% 6.4 % (1.7-9.3); MPV 11.2 FL (7.4-10.4); NEUT# 3.53 X1000 (1.4-6.5); NEUT% 77.9 % (42.2-75.2); PLT 96 X1000 (130-400); RBC 2.42 XMIL (4.2-5.4); RDW 15.5 % (11.5-14.5); WBC 4.53 X1000 (4.8-10.8)
[2019-09-22 07:59] LABS: CREATININE 1.9 mg/dL (0.5-0.9); POTASSIUM 5.6 mmol/L (3.5-5.1)
[2019-09-22] MEDS: ASPIRIN PO SCH (09:50)
[2019-09-22] MEDS: MULTAQ PO SCH ×2 (09:50→21:23)
[2019-09-22] MEDS: COREG PO SCH ×2 (09:50→21:23)
[2019-09-22] MEDS: VITAMIN B-12 PO SCH (09:50)
[2019-09-22] MEDS: LOVENOX SUBQ SCH (09:50)
[2019-09-22] MEDS: ICAR-C PO SCH (09:50)
[2019-09-22] MEDS: PROTONIX PO SCH ×2 (09:50→21:23)
[2019-09-22] MEDS: FOLIC ACID PO SCH (09:50)
[2019-09-22] MEDS: MYCOSTATIN CREAM TOP SCH ×2 (09:51→21:24)
[2019-09-22] MEDS: NEURONTIN PO SCH ×2 (09:51→21:23)
[2019-09-22] MEDS: MAXIPIME 2 GM/NS 2 GM/100 ML IVPB IV SCH (09:51)
[2019-09-22] MEDS: LANTUS INSULIN SUBQ SCH (09:52)
--- NOTE | 2019-09-22 16:50 | PROGRESS NOTE ---
DATE: 09/22/2019 INTERVAL HISTORY: The patient remains mild globally weak, but much improved overall. Eating and drinking well today. No new complaints. No acute events overnight. REVIEW OF SYSTEMS: A 12-point review of systems negative except as per interval history. LABS: WBC 4.5, hemoglobin 7.7, hematocrit 24.8, platelets 96,000. Sodium 136, potassium 5.6, BUN 50, creatinine 1.9, glucose 99 to 154. VITAL SIGNS: T-max 99.2 degrees, pulse 72, respirations 20, blood pressure 106/56, and O2 saturation 100% on room air. PHYSICAL EXAMINATION: General: No acute distress. Vital Signs: As above. HEENT: Normocephalic, atraumatic. Slightly dry mucous membranes. No cervical adenopathy. Cardiovascular: Regular rate and rhythm. No murmurs noted. Pulmonary: Clear to auscultation bilaterally. No wheezing, rales, or rhonchi. Abdomen: Soft, nontender, nondistended. Bowel sounds positive. Extremities: Peripheral pulses intact. No clubbing or cyanosis. Neurologic: Cranial nerves grossly intact. Mild global weakness, but no focal deficits. Psychiatric: Normal mood and affect. Cooperative and conversant. Skin: Previously noted cellulitis appears to be resolved. No new rashes. ASSESSMENT AND PLAN: 1. Urinary tract infection and cellulitis. Cellulitis is essentially resolved at this point. Urine culture growing out Klebsiella, which is sensitive to Augmentin, cefazolin, and Levaquin. Blood culture also grew out Pseudomonas, which was pansensitive. Patient currently on antibiotic therapy with cefepime. We will likely transition to oral Levaquin at discharge if she has not already finished with her course of treatment. Really only needs a couple more days. 2. Acute kidney injury on chronic kidney disease 3. The patient has had issues with hyperkalemia, and in an effort to improve that she was given some Lasix, but her kidneys do not appear to tolerate it. Pretty good bump in her BUN and creatinine today. As the patient is eating and drinking quite well, we will hold off intravenous fluids, but we will hold off on any further diuresis. If creatinine does not improve tomorrow, we will likely give some gentle hydration. 3. Hyperkalemia, improving with continued Veltassa. We will plan on continuing that. Change the patient's diet to renal to see if that will improve things as well. 4. Anemia, likely anemia of chronic disease. Hemoglobin and hematocrit are approximately stable. Monitor. 5. Diabetes. Acceptable control of glucose on current regimen. Continue to monitor. DISPOSITION: The patient with acute kidney injury and ongoing hyperkalemia today, but hopefully these can be resolved over the weekend and she can go to rehab on Wednesday
--- NOTE | 2019-09-22 17:32 | INFECTIOUS DISEASE PROGRESS NO ---
DATE: 09/22/2019 HISTORY OF PRESENT ILLNESS: The patient has a Klebsiella urinary tract infection and a Klebsiella and Pseudomonas right leg cellulitis. MEDICATIONS: This is day 10 of IV cefepime. PHYSICAL EXAMINATION: Vital Signs: Temperature is 97.8, pulse 63, respirations 20, blood pressure 111/56. General: This is an ill-appearing elderly female. She is in no acute distress. Head/eyes/ears/nose/throat: She can hear my spoken words and see near objects. She does not have any white patches in her mouth. Neck: No stiffness. Lungs: Clear to auscultation. Cardiovascular: Heart rate is irregular. Abdomen: Soft and nontender. Thorax: The patient has a Port-A-Cath in place. The site is not erythematous or bleeding. Extremities: The patient's legs are less edematous and less erythematous than when she came, and she certainly is not draining much fluid from her right leg also. Neurologic: The patient is alert. She can move her extremities. She is sitting in a chair now. LAB AND X-RAY: CBC shows a white count of 4530, hemoglobin 7.7, and platelet count 96,000. Creatinine is 1.9. GFR is 26. ASSESSMENT AND PLAN: The patient has a urinary tract infection and leg cellulitis. The patient is on cefepime. I am going to have to reduce its dose because the creatinine is up to 1.9, and the GFR is 26. COMORBIDITIES: The patient is a diabetic, and she has gastroesophageal reflux disease. She has also had colon cancer. cc: Zachary Pruitt MD
[2019-09-22] MEDS: DUONEB (A & A) INH PRN (19:52)
[2019-09-22] MEDS: SINGULAIR PO SCH (21:23)
[2019-09-22] MEDS: MAXIPIME 1 GM in NS 50 ML IV SCH (21:27)
[2019-09-23] MEDS: DUONEB (A & A) INH PRN ×2 (02:42→08:07)
[2019-09-23] MEDS: HUMULIN R SUBQ SCH ×4 (06:10→22:23)
[2019-09-23] MEDS: ASPIRIN PO SCH (09:38)
[2019-09-23] MEDS: VITAMIN B-12 PO SCH (09:38)
[2019-09-23] MEDS: PROTONIX PO SCH ×2 (09:39→20:16)
[2019-09-23] MEDS: NEURONTIN PO SCH ×2 (09:39→20:16)
[2019-09-23] MEDS: MYCOSTATIN CREAM TOP SCH ×2 (09:39→20:11)
[2019-09-23] MEDS: ICAR-C PO SCH (09:40)
[2019-09-23] MEDS: COREG PO SCH ×2 (09:40→20:11)
[2019-09-23] MEDS: FOLIC ACID PO SCH (09:40)
[2019-09-23] MEDS: LOVENOX SUBQ SCH (09:40)
[2019-09-23] MEDS: MAXIPIME 1 GM in NS 50 ML IV SCH ×2 (09:40→20:11)
[2019-09-23] MEDS: MULTAQ PO SCH ×2 (09:40→20:11)
[2019-09-23] MEDS: LANTUS INSULIN SUBQ SCH (09:40)
[2019-09-23 10:44] LABS: HEMATOCRIT 26.1 % (37.0-47.0); HEMOGLOBIN 8.1 g/dL (12.0-16.0); MCH 31.2 PG (27-31); MCV 100.4 FL (81-99); MPV 10.9 FL (7.4-10.4); RBC 2.6 XMIL (4.2-5.4); RDW 15.4 % (11.5-14.5); WBC 4.71 X1000 (4.8-10.8)
[2019-09-23 11:17] LABS: CALCIUM 8.9 mg/dL (8.8-10.2); CREATININE 2.5 mg/dL (0.5-0.9); POTASSIUM 5.4 mmol/L (3.5-5.1)
--- NOTE | 2019-09-23 13:31 | GENERAL SURGERY PROGRESS NOTE ---
DATE: 09/23/2019 SUBJECTIVE: The patient seems to be doing okay. She has no complaints. OBJECTIVE: Vital signs: The patient is currently afebrile. Her vital signs are stable. General exam: No acute distress. Cardiovascular: Regular rate and rhythm. Lungs: Grossly clear. Abdomen: Soft, nontender, nondistended. Extremities: Cellulitis seems to be improving to her leg per her report. Patient says it seems to be improving also. ASSESSMENT AND PLAN: A 79-year-old female with right leg cellulitis. Right leg cellulitis. At this time, seems to be clinically improving. We will follow peripherally. cc: Ac Casas MD
[2019-09-23] MEDS: VELTASSA PO SCH ×2 (14:01→20:16)
--- NOTE | 2019-09-23 16:26 | Diag Imaging Result Doc PS360 ---
EXAM: US RENAL 2 (RETROPER) COMPLETE INDICATION: worsening alok on ckd3 TECHNIQUE: COMPARISON: None. FINDINGS: The kidneys are grossly normal in echotexture with no discrete renal mass or hydronephrosis. The right kidney measures 11.9 cm and the left kidney measures 10.9 cm in the greatest longitudinal axes. Both renal cortices measure up to 1.2 cm in thickness. The bladder is completely nondistended and cannot be evaluated. IMPRESSION: Unremarkable renal ultrasound. Electronically signed by Luis Cedillo 09/23/2019 4:24 PM
[2019-09-23] MEDS: NS 1,000 ML IV SCH (20:10)
[2019-09-23] MEDS: SINGULAIR PO SCH (20:11)
--- NOTE | 2019-09-23 22:14 | PROGRESS NOTE ---
DATE: 09/23/2019 INTERVAL HISTORY: The patient overall doing quite well. Tolerating diet and p.o. liquids fairly well. No nausea or vomiting. No new complaints. No acute events overnight. REVIEW OF SYSTEMS: A 12-point review of systems is negative, except as per interval history. LABORATORY DATA: WBC 4.7, hemoglobin 8.1, hematocrit 26.1, platelets 80,000. Sodium 134, potassium 5.4, bicarbonate 17, BUN 59, creatinine 2.5, glucose 93 to 131. VITAL SIGNS: Temperature max 98.9 degrees, pulse 67, respirations 20, blood pressure 109/51, O2 saturation 97% on room air. PHYSICAL EXAMINATION: General: No acute distress. Vitals: As above. HEENT: Normocephalic, atraumatic. Mucous membranes still slightly dry. No cervical adenopathy. Cardiovascular: Regular rate and rhythm. No murmurs noted. Pulmonary: Clear to auscultation bilaterally. No wheezing, rales, or rhonchi. Abdomen: Soft, nontender, nondistended. Bowel sounds positive. Extremities: Peripheral pulses intact. No clubbing or cyanosis. Neurologic: Cranial nerves grossly intact. Mild global weakness, but no focal deficits identified. Psychiatric: Normal mood and affect. Cooperative and conversant. Skin: Cellulitis remains resolved. ASSESSMENT AND PLAN: 1. Urinary tract infection and cellulitis. Cellulitis resolved. Urine culture growing out Klebsiella. Tomorrow will be the last day of antibiotics. 2. Acute kidney injury on chronic kidney disease 3. Patient's creatinine was trending up yesterday after being given dose of Lasix the day before. Her p.o. intake has been pretty reasonable, so it was thought that we could just not give anymore diuresis and they would likely recover, but creatinine continued to trend up fairly significantly today. Starting her on some gentle IV fluids. We will check a urinalysis and kidney ultrasound to evaluate for other cause. If kidney function does not improve tomorrow, then we will likely need to get Nephrology involved. 3. Diabetes mellitus. Good control on current regimen. Monitor. 4. Hyperkalemia. Still very slightly high, but trending down pretty steadily. Continue Veltassa. 5. Anemia. Blood counts essentially stable. Continue to monitor. 6. Disposition. If the patient's kidney function will improve, then may be able to be discharged to a SNF on Wednesday, but we do need her kidney function to get better.
[2019-09-24 05:50] LABS: URINE SOURCE CATH
[2019-09-24 05:53] LABS: BILIRUBIN URINE NEGATIVE (NEGATIVE); BLOOD URINE MODERATE (NEGATIVE); COLOR YELLOW; GLUCOSE URINE NEGATIVE (NEGATIVE); KETONE URINE 10 mg/dL (NEGATIVE); LEUKOCYTES URINE NEGATIVE (NEGATIVE); NITRITE URINE NEGATIVE (NEGATIVE); PROTEIN URINE 100 mg/dL (NEGATIVE); SP GRAVITY URINE 1.019; TURBIDITY URINE HAZY (CLEAR); UROBILINOGEN URINE NORMAL (NORMAL)
[2019-09-24 05:54] LABS: UR EPITHELIAL CELLS <10 /HPF (<10); URINE BACTERIA NEGATIVE /HPF; URINE RBC <10 /HPF (<10); URINE WBC <10 /HPF (<10)
[2019-09-24] MEDS: NS 1,000 ML IV SCH ×3 (06:54→21:54)
[2019-09-24] MEDS: HUMULIN R SUBQ SCH ×4 (06:55→21:10)
[2019-09-24] MEDS: DUONEB (A & A) INH PRN ×3 (07:35→20:59)
[2019-09-24 07:40] LABS: BASO# 0.02 X1000 (0.0-0.2); BASO% 0.4 % (0.0-0.8); EOS# 0.27 X1000 (0.0-0.7); HEMOGLOBIN 7.4 g/dL (12.0-16.0); IMM GRAN# 0.03 X1000 (0.0-0.04); IMM GRAN% 0.7 % (0.0-0.5); LYMPH# 0.35 X1000 (1.2-3.4); LYMPH% 7.8 % (20.5-51.1); MCH 31.2 PG (27-31); MCHC 30.8 g/dL (33-37); MCV 101.3 FL (81-99); MONO# 0.28 X1000 (0.11-0.59); MONO% 6.2 % (1.7-9.3); NEUT# 3.56 X1000 (1.4-6.5); NEUT% 78.9 % (42.2-75.2); PLT 61 X1000 (130-400); RBC 2.37 XMIL (4.2-5.4); RDW 15.7 % (11.5-14.5); WBC 4.51 X1000 (4.8-10.8)
[2019-09-24 08:20] LABS: CALCIUM 8.7 mg/dL (8.8-10.2); POTASSIUM 5.2 mmol/L (3.5-5.1)
[2019-09-24] MEDS: MAXIPIME 1 GM in NS 50 ML IV SCH ×2 (08:50→21:52)
[2019-09-24] MEDS: ASPIRIN PO SCH (11:03)
[2019-09-24] MEDS: PROTONIX PO SCH ×2 (11:04→21:53)
[2019-09-24] MEDS: VITAMIN B-12 PO SCH (11:04)
[2019-09-24] MEDS: MULTAQ PO SCH ×2 (11:04→21:53)
[2019-09-24] MEDS: NEURONTIN PO SCH ×2 (11:04→21:57)
[2019-09-24] MEDS: ICAR-C PO SCH (11:04)
[2019-09-24] MEDS: FOLIC ACID PO SCH (11:04)
[2019-09-24] MEDS: MYCOSTATIN CREAM TOP SCH ×2 (11:05→21:54)
[2019-09-24] MEDS: LOVENOX SUBQ SCH (11:05)
[2019-09-24] MEDS: COREG PO SCH ×2 (11:06→21:53)
[2019-09-24] MEDS: LANTUS INSULIN SUBQ SCH (11:14)
[2019-09-24] MEDS: VELTASSA PO SCH ×2 (12:06→21:53)
--- NOTE | 2019-09-24 16:44 | EKG Report ---
Test Performed on : 09/24/2019 3:49:58 PM Test Reason : tachycardia, history of afib Blood Pressure : / mmHG Vent. Rate : 071 BPM Atrial Rate : 117 BPM P-R Int : 000 ms QRS Dur : 088 ms QT Int : 388 ms P-R-T Axes : 000 077 045 degrees QTc Int : 421 ms Atrial fibrillation. Low voltage QRS Septal infarct , age undetermined Abnormal ECG When compared with ECG of 16-SEP-2019 15:01, Septal infarct is now present Confirmed by Davi RAMEY, Pablo King ([id number]) on 09/24/2019 6:56:23 PM
--- NOTE | 2019-09-24 17:59 | PROGRESS NOTE ---
DATE: 09/24/2019 INTERVAL HISTORY: The patient is doing well this morning. In the afternoon, she developed some elevated heart rate. She was found to have gone back into atrial fibrillation, but by the time, I got an EKG her tachycardia had resolved. The patient endorsed some shakiness, but was otherwise asymptomatic during these episode. No other acute events. REVIEW OF SYSTEMS: Twelve point review of systems is negative except as per interval history. LABS: WBC 4.5, hemoglobin 7.4, hematocrit 24.0, platelets 61,000. Sodium 133, potassium 5.2, BUN 66, creatinine 3.0. Urinalysis unremarkable. IMAGING: Renal ultrasound with no acute process. VITALS: T-max 98.2 degrees, pulse 68, respirations 18, blood pressure 100/73, O2 saturation 96% on room air. PHYSICAL EXAMINATION: General: No acute distress. Vitals: As above. HEENT: Normocephalic, atraumatic. Moist mucous membranes. No cervical adenopathy. Cardiovascular: Regular rate and rhythm this morning. On recheck this afternoon, irregular rhythm but normal rate. No murmurs noted. Pulmonary: Clear to auscultation bilaterally. No wheezing, rales, or rhonchi. Abdomen: Soft, nontender, nondistended. Bowel sounds positive. Extremities: Peripheral pulses intact. No clubbing or cyanosis. Neurologic: Cranial nerves grossly intact. Mild global weakness, but no focal deficits. Psychiatric: Normal mood and affect awake, but easily arousable. Cooperative and conversant. ASSESSMENT AND PLAN: 1. Urinary tract infection and cellulitis. Cellulitis resolved. Urine culture growing Klebsiella. Today is the last day of her antibiotics. 2. Acute kidney injury on chronic kidney disease 3. Patient's creatinine was trending up a couple days ago after Lasix the day before. Oral intake was good, so fluids were not started at that time, but creatinine continued to trend up, so fluids were started yesterday. However, despite this, creatinine continues to trend up. Urinalysis unremarkable, though urine electrolytes pending. Renal ultrasound unremarkable. Getting Nephrology's opinion on her and monitoring closely. Medication list reviewed and no obviously nephrotoxic agents, although, Multaq could be on rare occasions. We will see what nephrology thinks. 3. Atrial fibrillation. Patient transiently had rapid ventricular response, but resolved spontaneously in fairly quickly. Patient largely asymptomatic other than generalized weakness and "shakiness." We will monitored her on telemetry and if further elevation in her heart rate occurs, we will plan on moving her to the cardiac unit and starting diltiazem. For now, I will continue her regular Coreg and amiodarone. 4. Hyperkalemia. Still very slightly high, but almost into the normal range at this point. Continue Veltassa. 5. Anemia. Blood counts remain on the low side, but largely stable. Continue to monitor. No signs or symptoms of bleeding. Her blood counts appear to have occasionally been as high as 12, but mostly appear to hang out with hemoglobins in the 7 to 9 range as far back as 2017. 6. Hypomagnesemia. The patient with fairly significantly low magnesium previously given weakness and shaky feeling and atrial fibrillation. We will go and recheck that. The labs were pending at the time of this discharge. DISPOSITION: Hopefully to rehab soon if her heart rate behaves and her kidney function improves.
[2019-09-24] MEDS: SINGULAIR PO SCH (21:53)
[2019-09-24 23:19] LABS: UR CREAT RANDOM 131.6 mg/dL (11-20)
[2019-09-25] MEDS: NS 1,000 ML IV SCH ×2 (06:10→20:59)
[2019-09-25] MEDS: HUMULIN R SUBQ SCH ×4 (06:58→21:00)
[2019-09-25 07:10] LABS: BASO# 0.03 X1000 (0.0-0.2); BASO% 0.6 % (0.0-0.8); EOS# 0.29 X1000 (0.0-0.7); EOS% 5.7 % (0.0-10.0); HEMATOCRIT 24.6 % (37.0-47.0); HEMOGLOBIN 7.6 g/dL (12.0-16.0); IMM GRAN# 0.04 X1000 (0.0-0.04); IMM GRAN% 0.8 % (0.0-0.5); LYMPH% 7.9 % (20.5-51.1); MCH 31.5 PG (27-31); MCHC 30.9 g/dL (33-37); MCV 102.1 FL (81-99); MONO# 0.23 X1000 (0.11-0.59); MONO% 4.6 % (1.7-9.3); MPV 11.6 FL (7.4-10.4); NEUT# 4.06 X1000 (1.4-6.5); NEUT% 80.4 % (42.2-75.2); PLT 63 X1000 (130-400); RBC 2.41 XMIL (4.2-5.4); WBC 5.05 X1000 (4.8-10.8)
[2019-09-25 07:41] LABS: CALCIUM 8.6 mg/dL (8.8-10.2); CREATININE 3.7 mg/dL (0.5-0.9); POTASSIUM 4.8 mmol/L (3.5-5.1)
[2019-09-25] MEDS: DUONEB (A & A) INH PRN ×3 (08:16→16:06)
[2019-09-25] MEDS: COREG PO SCH ×2 (09:53→23:29)
[2019-09-25] MEDS: MULTAQ PO SCH ×2 (09:56→20:59)
[2019-09-25] MEDS: FOLIC ACID PO SCH (09:56)
[2019-09-25] MEDS: ICAR-C PO SCH (09:56)
[2019-09-25] MEDS: LOVENOX SUBQ SCH (09:57)
[2019-09-25] MEDS: NEURONTIN PO SCH ×2 (09:57→20:59)
[2019-09-25] MEDS: ASPIRIN PO SCH (09:57)
[2019-09-25] MEDS: MAXIPIME 1 GM in NS 50 ML IV SCH ×2 (09:57→20:59)
[2019-09-25] MEDS: VITAMIN B-12 PO SCH (09:57)
[2019-09-25] MEDS: PROTONIX PO SCH ×2 (09:57→20:59)
[2019-09-25] MEDS: MYCOSTATIN CREAM TOP SCH ×2 (09:58→21:00)
--- NOTE | 2019-09-25 10:25 | NEPHROLOGY CONSULTATION ---
DATE: 09/25/2019 REASON FOR ADMISSION: Cellulitis. REASON FOR CONSULTATION: Acute on chronic kidney disease. HISTORY OF PRESENT ILLNESS: This is a 79-year-old female who has a history of metastatic colorectal cancer, had been on therapy with Vectibix. The patient came into the hospital with chronic venous stasis and reflux with persistent cellulitis. She has been also diagnosed with UTI Klebsiella. History of atrial fibrillation was noted in the hospital. Patient also treated for hyperkalemia while in the hospital. Initially on admission she had a creatinine of 1.0. This godwin as high as 1.8 on September 14. Subsequently returned back down to 1.2 and on the was noted to have jumped back up to 1.9. Yesterday she was up to 3.0 and her labs today are pending. The patient had urine studies yesterday that indicated a FENa of 0.3. She had received Lasix last night, has not received any since. She was placed on some gentle hydration yesterday. She made about 150 mL of urine which was voided. The family states that she has lost her appetite and has some shakiness. When I go back in to the chart it appears that she has had some episodes of this during the hospitalization. Yesterday it appears she had also went back into atrial fibrillation but then converted. She did have an ultrasound yesterday with the imaging kidney size 11.9, 10.9. Noted to be modestly anemic yesterday with a hemoglobin in the sevens. She has been marginal blood pressure with systolic in the 90s. PAST MEDICAL HISTORY: Colon cancer metastatic, atrial fibrillation, diabetes, hypertension, hyperlipidemia, GERD. SURGICAL HISTORY: Colon cancer. She has had a Port-A-Cath placement. ALLERGIES: Penicillin and sulfa. CURRENT MEDICATIONS: Listed as Tylenol, DuoNeb, aspirin, Coreg, cefepime, vitamin B12, Multaq, Lovenox, folic acid, Neurontin, Lantus Humulin, Icar, Singulair, Zofran, Protonix, Veltassa, normal saline. FAMILY HISTORY: Noncontributory. SOCIAL HISTORY: No ETOH, tobacco, or illicit drug use. REVIEW OF SYSTEMS: Decreased appetite, some nausea, some shakiness. PHYSICAL EXAMINATION: Vital Signs: Temperature 97.7 degrees, pulse 73, respiratory rate 16, blood pressure 98/40, intake 1.7 L. Output 150 mL voided. General: Chronically ill-appearing, elderly female, resting in bed. She is awake and alert. Her daughter is at the bedside helping her eat. HEENT: Normocephalic, atraumatic. Conjunctivae are pale. Oral mucosa is moist. Neck: Supple. There is no JVD. Cardiovascular: Regular irregular rhythm with controlled rate. Pulmonary: Equal excursion. Clear bilaterally. Abdomen: Soft, with positive bowel sounds. Obese. : Voiding. Extremities: She is moving her extremities. Does have vascular changes noted. Neurologic: Grossly nonfocal. LABORATORY DATA: Her chemistry is pending for today. Her last sodium was 133, potassium 5.2, creatinine yesterday was 3.0. She had a FENa of 0.3. ASSESSMENT AND PLAN: 1. Acute on chronic kidney disease. Acute tubular necrosis versus prerenal. The patient has been on multiple antibiotic regimens while in the hospital. She is also with a low FENA score although she did have diuretics. Patient has had IV fluid infusing over the last 24 hours. We would continue this with further orders pending her lab data today. 2. Cellulitis resolved on Klebsiella with urinary tract infection finishing up her antibiotics. 3. History of atrial fibrillation. She has multiple episodes of rapid ventricular response while in the hospital and this may be contributing to her worsening renal function secondary to decreased cardiac output. 4. Hyperkalemia has been on Veltassa, appears to be back to the normal range. 5. Electrolytes, acid-base balance. Again these are pending. Dictated by ZAINA Wallace for Channing Duong MD Face to face encounter, data reviewed, discussed with Tito Young on 09/25/18. I agree with the above assessment and plan of care. cc: MD Trevon Larsen MD [facility]
[2019-09-25] MEDS: VELTASSA PO SCH ×2 (13:11→23:53)
[2019-09-25] MEDS: ALBUMIN 25% IV SCH (13:21)
[2019-09-25] MEDS ORDERED: NS 500 ML IV ONE (15:22)
[2019-09-25] MEDS: LANTUS INSULIN SUBQ SCH (15:50)
--- NOTE | 2019-09-25 16:52 | Diag Imaging Result Doc PS360 ---
CHEST-PORTABLE - 09/25/2019 INDICATION: wheezing COMPARISON: 09/14/2019 FINDINGS: Stable right chest port. Lung volumes are much lower. There is worsening diffuse infiltrate or edema. Grossly stable cardiomegaly. No large pleural effusion. IMPRESSION: Lung volumes are much lower with worsening central infiltrates or edema. Electronically signed by Everett Gao 09/25/2019 4:50 PM
--- NOTE | 2019-09-25 16:57 | INFECTIOUS DISEASE PROGRESS NO ---
DATE: 09/25/2019 PRESENT ILLNESS: Ms. Burnett is being treated for a Klebsiella urinary tract infection and a Klebsiella and Pseudomonas right leg cellulitis. MEDICATIONS: Today is day 13 of cefepime 1 gram IV every 12 hours as a renally modified dose. PHYSICAL EXAMINATION: Vital Signs: Temperature is 97.6 degrees, pulse rate 74, respiratory rate 16, blood pressure 127/41, and O2 saturation is 97% on room air. General: This is an elderly, chronically ill-appearing female. She is sitting up in the chair, currently in no acute distress. HEENT: Atraumatic, normocephalic. Oral mucous membranes are pink and moist. Conjunctivae are pale. Neck: Supple. Trachea is midline. Cardiovascular: Irregularly irregular with atrial fibrillation on the monitor. Respiratory: Lung sounds are clear to auscultation with no work of breathing noted. Abdomen: Soft, obese and nontender. Bowel sounds are active. Integumentary: Skin is warm and dry. There is a Port-A-Cath to the right chest without any edema, erythema, or drainage to the site. There is a dressing in place to the right lower extremity, not removed at this time. Neurologic: She is awake, alert, and appropriate, but forgetful. Able to move all extremities with generalized weakness noted. LABORATORY AND X-RAY: Today her white count is 5.05, hemoglobin 7.6, platelet count 63,000. Creatinine is 3.7. GFR is 12. A urinalysis done yesterday showed negative urine bacteria and less than 10 WBCs. Previously her right leg grew Klebsiella and Pseudomonas, and she had Klebsiella in her urine culture. No imaging reports today. An EKG done yesterday showed atrial fibrillation, and a renal ultrasound done the day before was unremarkable. ASSESSMENT AND PLAN: Ms. Burnett is being treated for urinary tract infection and right lower extremity cellulitis. She is on renally dosed cefepime, which we will continue. Her kidney function has declined. So, we will monitor that carefully. These plans have been discussed with and recommended by Dr. Pruitt. COMORBIDITIES: The comorbidities for Ms. Burnett include that she is elderly with diabetes mellitus, gastroesophageal reflux disease, and colon cancer. Dictated by ZAINA Torres for Zachary Pruitt MD cc: MD Trevon Gudino MD [facility]
[2019-09-25 17:17] LABS: UR PROT RANDOM 173.8 mg/dL
[2019-09-25 17:19] LABS: PROTEIN CREAT RATIO 1.5; UR CREAT RANDOM 151.4 mg/dL (11-20)
[2019-09-25] MEDS: SINGULAIR PO SCH (20:59)
[2019-09-26] MEDS: ZOFRAN IV PRN ×2 (06:03→13:36)
[2019-09-26] MEDS: DUONEB (A & A) INH PRN ×2 (06:41→15:29)
[2019-09-26] MEDS ORDERED: LOVENOX SUBQ SCH (07:00)
[2019-09-26 07:16] LABS: BASO# 0.01 X1000 (0.0-0.2); BASO% 0.2 % (0.0-0.8); EOS# 0.23 X1000 (0.0-0.7); EOS% 4.2 % (0.0-10.0); HEMATOCRIT 22.8 % (37.0-47.0); HEMOGLOBIN 7.1 g/dL (12.0-16.0); IMM GRAN# 0.05 X1000 (0.0-0.04); IMM GRAN% 0.9 % (0.0-0.5); LYMPH# 0.37 X1000 (1.2-3.4); LYMPH% 6.8 % (20.5-51.1); MCH 31.4 PG (27-31); MCHC 31.1 g/dL (33-37); MCV 100.9 FL (81-99); MONO# 0.33 X1000 (0.11-0.59); MPV 12.1 FL (7.4-10.4); NEUT# 4.49 X1000 (1.4-6.5); NEUT% 81.9 % (42.2-75.2); PLT 53 X1000 (130-400); RBC 2.26 XMIL (4.2-5.4); RDW 15.7 % (11.5-14.5); WBC 5.48 X1000 (4.8-10.8)
[2019-09-26 07:39] LABS: CALCIUM 8.5 mg/dL (8.8-10.2); CREATININE 3.8 mg/dL (0.5-0.9)
[2019-09-26] MEDS: LANTUS INSULIN SUBQ SCH (08:54)
[2019-09-26] MEDS: MAXIPIME 1 GM in NS 50 ML IV SCH ×2 (08:56→19:43)
[2019-09-26] MEDS: VELTASSA PO SCH (08:56)
[2019-09-26] MEDS: NEURONTIN PO SCH (08:57)
[2019-09-26] MEDS: COREG PO SCH (08:57)
[2019-09-26] MEDS: MULTAQ PO SCH (08:57)
[2019-09-26] MEDS: ASPIRIN PO SCH (08:57)
[2019-09-26] MEDS: PROTONIX PO SCH (08:57)
[2019-09-26] MEDS: ALBUMIN 25% IV SCH (08:58)
[2019-09-26] MEDS: FOLIC ACID PO SCH (08:58)
[2019-09-26] MEDS: ICAR-C PO SCH (08:58)
[2019-09-26] MEDS: VITAMIN B-12 PO SCH (08:58)
[2019-09-26] MEDS: HUMULIN R SUBQ SCH ×2 (11:20→16:00)
[2019-09-26] MEDS ORDERED: ZAROXOLYN PO ONE (11:55)
[2019-09-26] MEDS ORDERED: LASIX IV SCH (12:00)
--- NOTE | 2019-09-26 12:09 | NEPHROLOGY PROGRESS NOTE ---
DATE: 09/26/2019 SUBJECTIVE: Patient is sitting up in bed. Her urine output continued to decline overnight. Her asterixis has worsened. OBJECTIVE: Vital Signs: Temperature 98.5 degrees, pulse 110, respiratory rate 20, and blood pressure 93/79. Intake 1.4 L. Output 120 mL voided urine. The patient did have a bladder scan early this morning with 150 mL noted in the bladder. General: Chronically ill- appearing elderly female, resting in bed. She is awake and alert. She has obvious asterixis. HEENT: Normocephalic, atraumatic. Conjunctivae are pale. Oral mucosa moist. Neck: Supple. Trachea midline. No JVD. Cardiovascular: Irregularly irregular rhythm. Currently controlled rate. Rate noted 68 to 114 overnight. Pulmonary: Equal excursion. Clear bilaterally. Decreased breath sounds. Abdomen: Obese. Positive bowel sounds. : Continues to void. Extremities: Moving all extremities. Vascular changes noted. 1+ edema. Integumentary: Skin is warm and dry. Neurologic: Nonfocal. LABORATORY DATA: Pending. Her creatinine yesterday was 3.7. The day prior was 3.0. Her CO2 prior of 14 and the potassium the day before was 4.8. We did repeat a urinalysis that indicated an elevated protein, and protein creatinine ratio of 1.5. She had positive ketones and moderate blood. She was negative for leukocytes. ASSESSMENT AND PLAN: 1. Acute kidney injury, acute tubular necrosis. The patient's urine output has decreased. Chest x-ray, however has worsened slightly with chest x-ray yesterday evening with lower lung volume and some worsening central infiltrates, and edema. I am holding her IV fluids today. We did go ahead and send off complements and electrophoresis secondary to the proteinuria that had increased. Her medication review does not indicate any outright nephrotoxic medications. There is concern for ATN. I did discuss with the family that depending on the patient's lab values and/or her fluid volumes, we may be required to utilize dialysis as a bridge to recovery. Again, our labs this morning are pending. I do anticipate that they will be worse secondary to the fact that her symptoms such as her asterixis is worse, and her urine output has declined. 2. Fluid volumes, again decreased urine output. She has not responded to albumin. Will add furosemide drip. 3. Atrial fibrillation with rapid ventricular response. The patient over the last 24 hours heart rate maximum was 114. She is controlled fairly well this morning in the low teens. 4. Hyperkalemia. Again she has been on Veltassa. If the potassium is in the normal range today, that can be discontinued. Dictated by ZAINA Wallace for Channing Duong MD Face to face encounter, data reviewed, discussed with Tito Young on 09/26/18. I agree with the above assessment and plan of care. cc: MD Trevon Larsen MD [facility]
[2019-09-26] MEDS: LASIX 200 MG in NS 25 ML IV SCH (14:43)
[2019-09-26] MEDS: MYCOSTATIN CREAM TOP SCH (15:00)
[2019-09-26] MEDS ORDERED: NS 500 ML IV ONE ×2 (17:12→18:08)
--- NOTE | 2019-09-26 17:28 | Diag Imaging Result Doc PS360 ---
EXAM: CT ABDOMEN/PELVIS W/O CONTRAST 09/26/2019 HISTORY: decreased renal function, oliguria TECHNIQUE: This exam was performed using automated exposure control, adjustment of mA or kV according to patient size, and/or use of iterative reconstruction technique. COMMENT: There is subcutaneous edema. There are large bilateral pleural effusions. This is worse than on 08/07/2019. There is compressive atelectasis in both lower lobes. The possibility of pneumonia cannot be excluded particularly with regard to the right lower lobe. There is a nodular appearing opacity present in the inferior left lower lobe on image 13 measuring 11 mm in diameter. This was also present at the time the previous study. The liver is nodular in appearance consistent with cirrhosis. The spleen is enlarged measuring over 18 cm in superior-inferior dimension. There has apparently been cholecystectomy. There is marked beam hardening artifact due to the patient's body habitus and the arms being in the field of view. The kidneys are without evidence of hydronephrosis or stones. There is stool throughout much of the colon. The small bowel is not distended. The aorta is not distended. There is a small amount of free fluid in the abdomen and pelvis which was also present at the time the previous study. There is a Chinchilla catheter in the bladder. There is a fairly large amount of stool in the rectum as there was previously. The regional skeleton appears stable. IMPRESSION: 1. Worsened anasarca and pleural effusions. Bibasilar atelectasis and/or pneumonia. 2. Constipation. 3. No evidence of obstructive uropathy. Other nonacute findings as described above. Electronically signed by David Mccoy 09/26/2019 5:26 PM
--- NOTE | 2019-09-26 18:24 | PROGRESS NOTE ---
DATE: 09/26/2019 SUBJECTIVE: Patient has no major complaints. OBJECTIVE: Blood pressure is 118/65, heart rate 62, respiratory rate 14. Temperature is 97.7 degrees.Cardiovascular: Regular rate and rhythm. Pulmonary: Bilateral breath sounds. Clear to auscultation. Gastrointestinal: Soft, nontender, nondistended. Bowel sounds are positive. LABORATORY DATA: White count is 5, hemoglobin and hematocrit is down to 7 and 22, platelets are down to 53,000. Creatinine is 3.8, sodium 132. PROBLEM LIST: 1. Acute kidney injury. She is still not much improved. We will continue to follow closely. Renal is following. He is on a Lasix drip. 2. Anemia. Still progressive, low hemoglobin and hematocrit. We will transfuse 1 unit and follow. 3. Cellulitis. We will continue antibiotics. I think she has finished her antibiotics yesterday. 4. Hyperkalemia. Improved on Lokelma. DISPOSITION: Pending clinical status. We will continue to monitor. cc: Trevon Gaytan MD
[2019-09-26 21:43] LABS: ALLEN TEST YES; BE -15.8 mmoll (-3.0-3.0); BLOOD TYPE ARTERIAL; HCO3-(ACT) 12.5 mmoll (20.0-26.0); O2(CT) 10.8 mL/dL (15.0-23.0); O2HB 90.7 % (95.0-99.0); PCO2(98.6) 34 mmHg (35-45); PO2(98.6) 61 mmHg (60-100); SAMPLE BLOOD; SAO2 94.1 % (95.0-100.0); THB 8.4 g/dL (11.5-17.4)
[2019-09-26 21:47] LABS: MODALITY ROOM AIR; pH(98.6) 7.15 (7.35-7.45)
[2019-09-26] MEDS ORDERED: SODIUM BICARBONATE 8.4% IV PUSH ONE (22:12)
[2019-09-26 23:44] LABS: URINE SOURCE CATH
[2019-09-26 23:50] LABS: BILIRUBIN URINE NEGATIVE (NEGATIVE); BLOOD URINE MODERATE (NEGATIVE); COLOR YELLOW; GLUCOSE URINE NEGATIVE (NEGATIVE); KETONE URINE 10 mg/dL (NEGATIVE); LEUKOCYTES URINE NEGATIVE (NEGATIVE); NITRITE URINE NEGATIVE (NEGATIVE); PH URINE 5.5; PROTEIN URINE 200 mg/dL (NEGATIVE); SP GRAVITY URINE 1.021; TURBIDITY URINE HAZY (CLEAR); UROBILINOGEN URINE NORMAL (NORMAL)
[2019-09-27 00:04] LABS: UR EPITHELIAL CELLS <10 /HPF (<10); URINE BACTERIA NEGATIVE /HPF; URINE CASTS NONE SEEN; URINE CRYSTALS NONE SEEN; URINE RBC <10 /HPF (<10); URINE SMALL ROUND CELLS NONE SEEN; URINE YEAST PRESENT
[2019-09-27] MEDS ORDERED: SODIUM BICARBONATE 8.4% IV PUSH ONE (01:00)
[2019-09-27] MEDS: LASIX 200 MG in NS 25 ML IV SCH (01:53)
[2019-09-27] MEDS: HUMULIN R SUBQ SCH ×5 (06:28→20:24)
[2019-09-27] MEDS: PROTONIX PO SCH ×3 (06:29→20:18)
[2019-09-27] MEDS: COREG PO SCH ×3 (06:29→20:17)
[2019-09-27] MEDS: VELTASSA PO SCH ×3 (06:29→20:19)
[2019-09-27] MEDS: SINGULAIR PO SCH ×2 (06:29→20:18)
[2019-09-27] MEDS: MYCOSTATIN CREAM TOP SCH ×3 (06:30→21:50)
[2019-09-27] MEDS: MULTAQ PO SCH ×3 (06:30→20:18)
[2019-09-27] MEDS ORDERED: NS 2,000 ML MISC PRN (06:35)
[2019-09-27 07:02] LABS: CALCIUM 8.4 mg/dL (8.8-10.2); CREATININE 4.5 mg/dL (0.5-0.9); POTASSIUM 5.5 mmol/L (3.5-5.1)
[2019-09-27 07:03] LABS: MAGNESIUM 1.6 mg/dL (1.5-2.7)
[2019-09-27 07:31] LABS: HEMATOCRIT 24.2 % (37.0-47.0); HEMOGLOBIN 7.6 g/dL (12.0-16.0); MCH 31.8 PG (27-31); MCHC 31.4 g/dL (33-37); MCV 101.3 FL (81-99); MPV 11.8 FL (7.4-10.4); RBC 2.39 XMIL (4.2-5.4); RDW 17.1 % (11.5-14.5); WBC 6.23 X1000 (4.8-10.8)
[2019-09-27 07:57] LABS: ALBUMIN 3.4 g/dL (3.5-5.0); CALCIUM 8.2 mg/dL (8.8-10.2); CREATININE 4.7 mg/dL (0.5-0.9); PHOSPHORUS 5.1 mg/dL (2.7-4.5)
[2019-09-27] MEDS: DUONEB (A & A) INH PRN (08:06)
[2019-09-27] MEDS: MAXIPIME 1 GM in NS 50 ML IV SCH (09:26)
[2019-09-27] MEDS: ALBUMIN 25% IV SCH (10:46)
[2019-09-27] MEDS: LANTUS INSULIN SUBQ SCH (11:17)
[2019-09-27] MEDS: ASPIRIN PO SCH (12:07)
[2019-09-27] MEDS: FOLIC ACID PO SCH (12:08)
[2019-09-27] MEDS: ICAR-C PO SCH (12:08)
[2019-09-27] MEDS: VITAMIN B-12 PO SCH (12:09)
--- NOTE | 2019-09-27 12:40 | GENERAL SURGERY PROGRESS NOTE ---
DATE: 09/27/2019 SUBJECTIVE: The patient has had worsening respiratory difficulty and is now requiring hemodialysis for acute kidney injury and very little urine output. OBJECTIVE: Vital Signs: She is afebrile. Her vital signs are stable. Respiratory: She is on BiPAP and appears uncomfortable. Cardiovascular: Regular rate and rhythm. LABORATORY: PH 7.15, pCO2 of 34, PaO2 61, bicarbonate 12, base deficit -15, potassium 5.5, sodium 133, BUN 80, creatinine 4.5. ASSESSMENT AND PLAN: A 39-year-old female with worsening acute kidney injury and respiratory failure. We are planning a Vas-Cath placement for dialysis today. I went over the risks and benefits with the patient and her daughter including bleeding, infection, catheter malfunction, deep venous thrombosis, and pneumothorax. They understand and agree to proceed. cc: MD Trevon Hernandez MD
--- NOTE | 2019-09-27 15:47 | OPERATIVE NOTE ---
PROCEDURE DATE: 09/27/2019 PREOPERATIVE DIAGNOSIS: Acute kidney injury. POSTOPERATIVE DIAGNOSIS: Acute kidney injury. PROCEDURE: Insertion of dialysis vascular catheter. SURGEON: Brad Olivarez MD. ESTIMATED BLOOD LOSS: 10 mL. COMPLICATIONS: None apparent. FINDINGS: The internal jugular veins were visualized with the ultrasound. They were compressible and patent. However, we could not pass a wire successfully into the veins. The femoral vein, however, did except the wire and the catheter. TECHNIQUE: She was initially kept supine on the table on her bed and we prepped and draped the right neck. I found the right internal jugular vein with ultrasound. I anesthetized the skin with lidocaine and accessed the internal jugular vein on the right side under ultrasound guidance. However the wire would not pass through the needle. We tried 2 more attempts and again could not get the wire to pass down. I then re-prepped and draped on the left side with the same results. I then re-prepped and draped in the right groin. I palpated the femoral artery. Medial to the femoral artery I anesthetized the skin and accessed the vein with 1 stick, drawing back dark, nonpulsatile blood. The wire passed easily. The track was dilated and a Trialysis catheter was passed over the wire into the vein via the Seldinger technique. The wire was removed. Each port wiley back blood and was flushed with saline easily. Sterile caps were applied. The catheter was anchored to the skin with nylon suture. A sterile dressing was applied. There were no apparent complications. cc: MD Trevon Hernandez MD
[2019-09-27 15:55] LABS: ANTINEUTROPHIL CYTOPLASMIC AB SEE COMMENTS
--- NOTE | 2019-09-27 16:18 | PROVIDER PROGRESS NOTE ---
Progress Note Subjective: Pt is obtunded, sister at bedside. Objective: temperature 97.5, pulse 90, respirations 20, blood pressure 119/53, O2 sat 98% on BiPAP. General: ill obese white female lying in bed in some respiratory distress HEENT: normocephalic, atraumatic, pupils equal and reactive, mucous membranes dry. Skin: warm and dry. Port to the left chest wall Neck: supple, Jvd with HJR Cardiovascular: Heart extra noise, no murmur or gallop Respiratory: Rhonchi anteriorly Abdomen: obese, soft, nontender, nondistended, bowel sounds active. Extremities: 2+ pitting with pitting at the hips :Chinchilla with minimum Shi urine Neurological: Obtunded. Labs: WBC 6.23, hemoglobin 7.6, hematocrit 24.2, platelet count 52, sodium 133, potassium 5.5, chloride 106, carbon dioxide 12, P1 80, creatinine 4.5. Intake 1414, output 120. Impression: Acute kidney injury. Acute tubular necrosis. Pt is not responding to diuretics and her chest X-ray is not improving. Her potassium, BUN, and Creatinine continue to rise. I have spoken to Dr. Olivarez for vas-cath placement and then we will hemodialyze her. Blood pressure. Stable. Fluid volume. Expanded. We will attempt hemodialysis once placement of access is confirmed. Electrolytes and acid base balance. Correct with hemodialysis. Nutrition. Address in the future. Medication review. Stop furosemide.
--- NOTE | 2019-09-27 17:41 | PROGRESS NOTE ---
DATE: 09/27/2019 SUBJECTIVE: Patient has no major complaints. She is very out of it though, I am confused. She developed worsening respiratory failure last night and confusion. She is profoundly acidotic, and she is transferred to the ICU for BiPAP and urgent dialysis. OBJECTIVE: Blood pressure 116/53, respiratory 14, temperature 97.5 degrees and 99% on BiPAP.Cardiovascular: Tachy. Pulmonary: Diffuse rhonchi, wheezes and rales. GI: Soft, nontender, and nondistended. Bowel sounds are positive. LABORATORY DATA: White count is 6, hemoglobin and hematocrit 7 and 24, platelets are down to 52,000. Potassium is 5.5, creatinine 4.5, and BUN 80. PROBLEM LIST: 1. Acute kidney injury which has progressed to acute tubular necrosis. We will continue treatment plan for sled today per Dr. Duong, and has been on Lasix as well. 2. Anemia. We will continue to follow hemoglobin and hematocrit. Her blood count is still low, but she got a transfusion very late this morning or early this morning. We will monitor. She may need further transfusion. 3. Cellulitis. She is empirically on antibiotics which I think she has been changed to Teflaro. 4. Hyperkalemia. She will get dialysis today. She is on Lokelma. 5. Acute on chronic respiratory failure due to volume overload. We will get a pulmonary consult. She is on BiPAP. We will continue to follow closely. cc: Trevon Gaytan MD [facility]
[2019-09-27] MEDS: TEFLARO 200 MG in NS 250 ML IV SCH (19:13)
--- NOTE | 2019-09-27 20:33 | INFECTIOUS DISEASE PROGRESS NO ---
DATE: 09/27/2019 PRESENT ILLNESS: Ms. Burnett has a Klebsiella urinary tract infection and a Klebsiella and Pseudomonas right leg cellulitis. These seem to have improved; however, she has been moved to the intensive care unit due to renal failure and is being put on SLED. CT of the abdomen and pelvis shows possible bibasilar pneumonia. MEDICATIONS: She has been receiving cefepime 1 g IV every 12 hours as a renally modified dose. PHYSICAL EXAMINATION: Vital Signs: Temperature is 97.5 degrees, pulse rate 96, respiratory rate 23, blood pressure 141/73, O2 saturation is 95% on 25% FiO2 on the BiPAP. General: This is an elderly, chronically ill-appearing female. She is lying in the bed, fighting against the BiPAP, and appears to be mildly confused. HEENT: Atraumatic, normocephalic. Oral mucous membranes are difficult to visualize. Conjunctivae are pale. Neck: Supple. Trachea is midline. Cardiovascular: Irregularly irregular with atrial fibrillation and occasional ectopic beats on the monitor. Respiratory: Lung sounds are clear in the mid and upper lobes, diminished in the bases. Abdomen: Soft. Obese, nontender. Bowel sounds are active. Integumentary: Skin is warm and dry with erythema and dry skin to right calf, which has improved. There is a Port-A-Cath to the right chest. That site is without any edema, erythema, or drainage. She also has a new Vas-Cath in place to the right groin which has some bloody drainage to the site, but no erythema or edema. Neurologic: She is awake, alert and will follow commands at times but is on the BiPAP making it difficult to verbalize. Also, she is having some intermittent, spastic jerking movements. LABORATORIES AND X-RAYS: Today, her white count is 6.23, hemoglobin 7.6, platelet count 52,000. Creatinine is 4.5 with a GFR of 9. A urinalysis yesterday was negative for bacteria with 10 to 22 urine WBCs. There is a urine culture pending. CT of the abdomen and pelvis showed worsened anasarca and pleural effusions with bibasilar atelectasis and/or pneumonia. ASSESSMENT AND PLAN: Ms. Burnett is being treated for a Klebsiella urinary tract infection and Klebsiella right lower extremity cellulitis, and a possible pneumonia. We have discontinued cefepime and instead we will start her on ceftaroline 200 mg IV every 12 hours with modifications based on her hemodialysis. This will provide more broad-spectrum coverage for the possibility of pneumonia. These plans have been discussed with and recommended by Dr. Pruitt. COMORBIDITIES: For Ms. Burnett include that she is elderly with diabetes mellitus, colon cancer, gastroesophageal reflux disease, and now in current renal failure with hemodialysis. Dictated by ZAINA Torres for Zachary Pruitt MD cc: MD Trevon Gudino MD [facility]
[2019-09-28] MEDS: TEFLARO 200 MG in NS 250 ML IV SCH ×2 (05:21→18:33)
[2019-09-28] MEDS: HUMULIN R SUBQ SCH ×4 (06:14→20:58)
[2019-09-28 06:55] LABS: HEMATOCRIT 22.7 % (37.0-47.0); HEMOGLOBIN 7.3 g/dL (12.0-16.0); MCH 32.6 PG (27-31); MCHC 32.2 g/dL (33-37); MCV 101.3 FL (81-99); MPV 12.3 FL (7.4-10.4); RBC 2.24 XMIL (4.2-5.4); RDW 17.3 % (11.5-14.5); WBC 6.18 X1000 (4.8-10.8)
[2019-09-28 07:06] LABS: ALBUMIN 3.6 g/dL (3.5-5.0); CALCIUM 8.8 mg/dL (8.8-10.2); POTASSIUM 4.4 mmol/L (3.5-5.1)
[2019-09-28] MEDS: FOLIC ACID PO SCH (08:47)
[2019-09-28] MEDS: ASPIRIN PO SCH (08:47)
[2019-09-28] MEDS: COREG PO SCH ×2 (08:47→20:58)
[2019-09-28] MEDS: LANTUS INSULIN SUBQ SCH (08:48)
[2019-09-28] MEDS: ICAR-C PO SCH (08:48)
[2019-09-28] MEDS: PROTONIX PO SCH ×2 (08:48→20:59)
[2019-09-28] MEDS: MULTAQ PO SCH ×2 (08:48→20:58)
[2019-09-28] MEDS: VITAMIN B-12 PO SCH (08:49)
[2019-09-28] MEDS: VELTASSA PO SCH ×2 (08:49→20:59)
[2019-09-28] MEDS ORDERED: NS 2,000 ML MISC PRN (09:09)
[2019-09-28] MEDS: MYCOSTATIN CREAM TOP SCH ×2 (09:24→20:58)
--- NOTE | 2019-09-28 12:57 | INFECTIOUS DISEASE PROGRESS NO ---
DATE: 09/28/2019 PRESENT ILLNESS: The patient had a Klebsiella urinary tract infection. However, that has cleared, and now she has gram-positive cocci in her urine. The patient has a Klebsiella and Pseudomonas right leg cellulitis. At first, it seemed to improve, but looking at it today, it looks like the cellulitis is present. The patient also may have a bibasilar pneumonia as seen on a CT scan of the abdomen and pelvis. MEDICATIONS: The patient is on ceftaroline as a single agent. This is day #1 of it. I have gone ahead and added Levaquin to provide coverage of the Pseudomonas component of the patient's right leg infection because ceftaroline does not have activity against Pseudomonas. This is day 1 of ceftaroline, and starting Levaquin today. PHYSICAL EXAMINATION: Vital Signs: Temperature is 98 degrees, pulse 96, respirations 20, blood pressure 135/77. General: This is a chronically ill-appearing, elderly female. She seems to be delirious. HEENT: The patient is wearing a BiPAP mask. Neck: No stiffness. Lungs: Clear to auscultation. Cardiovascular: Heart rate is irregular. Abdomen: Soft, and it did not appear to be tender. In the right groin, the patient has a Trialysis catheter. The site is slightly erythematous, but there is no purulence. There was not a dressing on it, and I went ahead and asked the nurse to get it dressed as soon as possible. Thorax: The patient has a right-sided chest Port-A-Cath. The site is not erythematous or purulent. Neurologic: The patient seems to be delirious. She thrashes around in bed. She does not follow any requests to move her legs and arms. LAB AND RADIOLOGY: CBC-WBC 6.18, hgb 7.3, platelets 47K. Creatinine: 3.0. GFR: >15. No radiographic today. ASSESSMENT AND PLAN: The patient has a possible basilar pneumonia. The plan would be to continue the ceftaroline and also Levaquin, which hopefully would treat the pneumonia and the right leg cellulitis. I am ordering a procalcitonin level to see if the basilar infiltrates are pneumonia or is it just atelectasis. Also, as mentioned earlier, I have started the patient on Levaquin to provide coverage for the Pseudomonas which was grown from the patient's right leg. COMORBIDITIES: The patient is elderly. She has diabetes mellitus, colon cancer, gastroesophageal reflux disease, renal failure, and the beginning of hemodialysis or SLED. cc: MD Trevon Gudino MD [facility]
--- NOTE | 2019-09-28 13:30 | PROGRESS NOTE ---
DATE: 09/28/2019 SUBJECTIVE: She is still very confused, kind of having some myoclonic jerking. OBJECTIVE: Vital Signs: Blood pressure 134/61, heart rate of 93, respiratory rate 23, temperature 97.7 degrees. Cardiovascular: Regular rate and rhythm. Pulmonary: Bilateral breath sounds, diminished at the bases. GI: Soft, nontender, nondistended. Bowel sounds are positive. LABORATORY DATA: White count 6, hemoglobin and hematocrit are down to 7 and 22, platelets of 47,000. Creatinine is 3. PROBLEM LIST: 1. Acute on chronic renal failure. She is getting dialyzed again today, is tolerating hemodialysis. Dr. Duong is following. 2. Anemia. Blood count is still low. She may require further transfusion. We will continue to monitor. 3. Cellulitis. She is now on Teflaro, so will continue to follow. 4. Hyperkalemia is improved, and she is on dialysis. 5. Acute respiratory failure. She seems to be doing okay from that standpoint. 6. Encephalopathy. I do not really have a clear indication unless it is related to her anemia. She is on Levaquin, but that was just started. I doubt that is contributing, but she does have a positive urine culture, so prognosis is still guarded. cc: Trevon Gaytan MD
[2019-09-28 15:21] LABS: HEPATITIS PROFILE ACUTE SEE COMMENTS
[2019-09-28] MEDS: LEVAQUIN 250 MG/D5W 250 MG/50 ML IVPB IV SCH (16:13)
--- NOTE | 2019-09-28 18:41 | PROVIDER PROGRESS NOTE ---
Progress Note Subjective: Pt is moaning but responsive to verbal stimuli Objective: temperature 98.0, pulse 93, respirations 23, blood pressure 134/61, 02 sat 99% on bipap. General: ill obese white female lying in bed in no acute distress HEENT: normocephalic, atraumatic, pupils equal and reactive, mucous membranes dry. Skin: warm and dry. Bruising to neck area. Port to the left chest wall, vas-cath to right groin. Neck: supple, Jvd with HJR Cardiovascular: S1S2, regular rate with extra heart tones. No murmur or gallop Respiratory: Rhonchi anteriorly Abdomen: obese, soft, nontender, nondistended, bowel sounds active. Extremities: 2+ pitting with pitting at the hips :Chinchilla with minimum Shi urine Neurological: Obtunded. Labs: WBC 6.18, hemoglobin 7.3, hematocrit 22.7, platelet count 47, sodium 138, potassium 4.4, chloride 105, carbon dioxide 19, BUN 45, creatinine 3.0. Impression: Acute kidney injury. Acute tubular necrosis. She tolerated her first SLED treatment yesterday with a 2.3 L liter ultrafiltration. We will attempt to pull 2-2.5L today with bedside hemodialysis. Blood pressure. Stable. Fluid volume. Expanded. We will attempt hemodialysis again today. Thrombocytopenia. Platelet count 47. Electrolytes and acid base balance. Correct with hemodialysis. Medication review. Renal dosed teflaro. Tolerated treatment. Still not very responsive but respiratory status is improved. Reevaluate in the morning.
--- NOTE | 2019-09-28 20:36 | GENERAL SURGERY PROGRESS NOTE ---
DATE: 09/28/2019 SUBJECTIVE: The patient is slightly more alert today, but not conversing. She is off BiPAP. She did undergo dialysis yesterday. OBJECTIVE: Vital signs: She is afebrile. Pulse 90s to low 100s, blood pressure 143/63, O2 saturation 98%. General: She is arousable and acknowledges our presence, but does not follow commands. CV: Tachycardic. Respiratory: Bilateral equal breath sounds. No increased work of breathing. Extremities: The cellulitis of the legs has essentially resolved. There is minimal edema now. LABORATORY: CBC and metabolic profile reviewed and notable for decreased BUN, creatinine, after dialysis. ASSESSMENT AND PLAN: A 79-year-old female originally admitted with severe cellulitis that has resolved. She now has respiratory failure and acute kidney injury. We are following along. Continue supportive care. Appreciate Dr. Duong and the hospitalist assistance, as well as Dr. Pruitt. cc: MD Trevon Hernandez MD
[2019-09-28] MEDS: SINGULAIR PO SCH (20:59)
[2019-09-29] MEDS: TEFLARO 200 MG in NS 250 ML IV SCH ×2 (05:08→17:59)
[2019-09-29 06:13] LABS: HEMATOCRIT 23.1 % (37.0-47.0); HEMOGLOBIN 7.2 g/dL (12.0-16.0); MCH 32.1 PG (27-31); MCHC 31.2 g/dL (33-37); MCV 103.1 FL (81-99); RBC 2.24 XMIL (4.2-5.4); RDW 17.3 % (11.5-14.5); WBC 5.58 X1000 (4.8-10.8)
[2019-09-29] MEDS: HUMULIN R SUBQ SCH ×4 (06:16→21:13)
[2019-09-29 06:50] LABS: ALBUMIN 3.6 g/dL (3.5-5.0); CALCIUM 8.5 mg/dL (8.8-10.2); CREATININE 2.7 mg/dL (0.5-0.9); PHOSPHORUS 3.4 mg/dL (2.7-4.5)
[2019-09-29] MEDS ORDERED: NS 2,000 ML MISC PRN (07:21)
[2019-09-29] MEDS: DUONEB (A & A) INH PRN ×4 (08:38→19:00)
[2019-09-29] MEDS: ASPIRIN PO SCH (08:49)
[2019-09-29] MEDS: COREG PO SCH ×2 (08:50→21:13)
[2019-09-29] MEDS: FOLIC ACID PO SCH (08:50)
[2019-09-29] MEDS: MULTAQ PO SCH ×2 (08:50→21:13)
[2019-09-29] MEDS: PROTONIX PO SCH ×2 (08:50→21:13)
[2019-09-29] MEDS: ICAR-C PO SCH (08:50)
[2019-09-29] MEDS: LANTUS INSULIN SUBQ SCH (08:50)
[2019-09-29] MEDS: VELTASSA PO SCH ×2 (08:51→21:14)
[2019-09-29] MEDS: VITAMIN B-12 PO SCH (08:51)
[2019-09-29] MEDS: MYCOSTATIN CREAM TOP SCH ×2 (09:38→21:12)
[2019-09-29] MEDS: DIFLUCAN 100 MG/NS 100 MG/50 ML IVPB IV SCH (12:57)
--- NOTE | 2019-09-29 16:14 | PROGRESS NOTE ---
DATE: 09/29/2019 SUBJECTIVE: Patient had no complaints. OBJECTIVE: Blood pressure 146/62, heart rate of 94, respiratory rate of 10, temperature was 98.2 degrees.Cardiovascular: Regular rate and rhythm. Pulmonary: Bilateral breath sounds clear to auscultation. GI: Soft, nontender, nondistended. Bowel sounds are positive. LABORATORY: White count is 5.5, hemoglobin 7 and hematocrit 23, platelets are down to 46,000, creatinine is 2.7. PROBLEM LIST: 1. Acute on chronic renal failure. She is still getting dialysis per Dr. Duong. We will continue to follow. 2. Anemia. Blood count is still low, but it is stable over the last 2 days, not sure if she is going to need further blood but she is still very confused. 3. Cellulitis. She is on Teflaro which is day 2. 4. Hyperkalemia. That is resolved since she has been on dialysis. 5. Acute respiratory failure. She is still requiring O2 and BiPAP, but mostly I think that is associated with her altered mentation. 6. Encephalopathy. We will continue to monitor closely. Her urine culture grew out yeast. Has not had any other cultures at this time. I am not sure if she has been put on Diflucan. She is on Levaquin and Teflaro, I need to add Diflucan and continue to follow. cc: Trevon Gaytan MD
--- NOTE | 2019-09-29 16:30 | INFECTIOUS DISEASE PROGRESS NO ---
DATE: 09/29/2019 PRESENT ILLNESS: Ms. Burnett is being treated for a right lower extremity cellulitis which has grown Klebsiella and Pseudomonas. This is improving, but is still present. There is also the possibility of bibasilar pneumonia seen on CT scan of the abdomen and pelvis. Procalcitonin is pending. There is also a yeast in her urine. This does not need to be treated. MEDICATIONS: Today is day 1 of Levaquin 250 mg IV daily. Today is day 2 of ceftaroline 200 mg IV every 12 hours. PHYSICAL EXAMINATION: Vital Signs: Temperature is 98.2 degrees, pulse rate 84, respiratory rate 11. Blood pressure 143/69, O2 saturation is 100% on a 40% FiO2 on the BiPAP. General: This is a an elderly, critically ill appearing female. She is lying in the bed currently with soft wrist restraints and is lethargic but pulling against restraints at times. HEENT: Conjunctivae are pale. She has a BiPAP mask on which makes her oral vestibule difficult to visualize. Neck: Supple. Trachea is midline. She does have bruising noted around the area of the neck and jaw line. Cardiovascular: Irregularly irregular with atrial fibrillation on the monitor. Respiratory: Lung sounds have some coarse rhonchi in the upper lobes. Diminished in the mid and bases. Abdomen: Soft. Obese, nontender. Integumentary: There is a dialysis catheter in place to the right groin with a small amount of bloody drainage noted at the site. No edema or purulence noted. She has a Port-A-Cath in place to the right chest. That site is without edema, erythema, or drainage. Neurologic: She will open her eyes per request but is lethargic and thrashing somewhat in the bed at times. LABORATORY AND X-RAY: Today her white count is 5.58, hemoglobin 7.2, platelet count 40,000. Creatinine is 2.7. GFR 17. Her most recent urine culture showed no yeast. No imaging reports today. ASSESSMENT AND PLAN: Ms Burnett is being treated for a Klebsiella and Pseudomonas cellulitis to the right leg as well as a possible pneumonia. We are awaiting results of procalcitonin, but for now we will continue the ceftaroline and Levaquin as ordered. She has yeast that has grown in her urine however, this is not something we normally treat. These plans have been discussed with and recommended by Dr. Pruitt. COMORBIDITIES: For Ms. Burnett include that she is elderly with diabetes mellitus, gastroesophageal reflux disease, colon cancer and renal failure with hemodialysis. Dictated by ZAINA Torres for Zachary Pruitt MD cc: MD Trevon Gudino MD [facility]
[2019-09-29] MEDS: LEVAQUIN 250 MG/D5W 250 MG/50 ML IVPB IV SCH (16:34)
--- NOTE | 2019-09-29 18:16 | NEPHROLOGY PROGRESS NOTE ---
DATE: 09/29/2019 SUBJECTIVE: She is lying in bed. Eyes closed. Unresponsive. OBJECTIVE: Vital Signs: Blood pressure 143/69, heart rate 89, respirations 12, afebrile. Intake 550 mL. Output 2.8 L. General: She is somnolent, unresponsive. Slow deep breathing. Skin is warm and dry with ecchymoses around the neck. Pupils are equal. Neck veins are not appreciated. Cardiovascular: Heart is regular. Lungs: Clear with a few rhonchi. Abdomen: Soft nontender, obese. Bowel sounds diminished but present. Extremities: 2+ edema. No clubbing or cyanosis. IMPRESSION: Acute kidney injury. No recovery. Urine output remains very low. Electrolytes/acid base/BUN all in target. She will have SLED again today with a goal of 4 L ultrafiltration as tolerated. It is not clear that she is responding at all to dialysis in terms of her mental status. cc: MD Trevon Larsen MD
--- NOTE | 2019-09-29 18:25 | Diag Imaging Result Doc PS360 ---
EXAM: CT HEAD W/O CONTRAST 09/29/2019 HISTORY: encephalopathy TECHNIQUE: This exam was performed using automated exposure control, adjustment of mA or kV according to patient size, and/or use of iterative reconstruction technique. COMMENT: There is no evidence of mass effect, bleed, or abnormal extra-axial fluid collection. There is mild generalized cerebral atrophy. There is some motion artifact. Compared to 07/04/2017 there has been no significant change in the appearance of the brain. There is some mucosal thickening and fluid in both sphenoid sinuses which is worse than on the previous study. IMPRESSION: No evidence of acute intracranial disease. Bilateral sphenoid sinusitis. Electronically signed by David Mccoy 09/29/2019 6:23 PM
[2019-09-29] MEDS: SINGULAIR PO SCH (21:13)
--- NOTE | 2019-09-29 21:22 | HEMO/ONC PROGRESS NOTE ---
DATE: 09/29/2019 CHIEF COMPLAINT: She is not doing well. HISTORY OF PRESENT ILLNESS: Ms. Burnett is sedated, lethargic with a Venturi mask in place in the hospital bed, currently undergoing continuous renal replacement therapy. Her daughter is at the bedside and provides most of the history today. PHYSICAL EXAMINATION: Vital signs: Temperature 98.2 degrees, pulse 94, respiratory rate 10, blood pressure 146/62, O2 saturation 99% on Venturi mask. General: This is a chronically ill- appearing elderly woman who is sedated, lying in the hospital bed. Eyes: Sclerae anicteric. Conjunctivae pale. Cardiovascular: Regular rate and rhythm. Normal S1, S2. No murmurs, rubs, or gallops. Pulmonary: Coarse bilateral breath sounds. No wheezes, rales, or rhonchi. Gastrointestinal: Abdomen is obese but soft, nontender, nondistended with normoactive bowel sounds. Neurologic: Gait not assessed as the patient is sedated in the hospital bed. Skin: The patient has significant erythema and ecchymosis on her anterior neck. LABORATORY DATA: White count 5.58, hemoglobin 11.2, platelet count 46,000, creatinine 2.7. ASSESSMENT AND PLAN: 1. Metastatic colorectal cancer: Her treatment has been on hold. She has known metastatic disease and has been on treatment for some time. Treatment is palliative. Overall prognosis discussed with the patient's daughter today. Continue to monitor and provide supportive care. 2. Anemia: Multifactorial. Transfuse as needed. Her blood pressure is stable. Transfusion may improve her oxygenation but is not absolutely necessary at this point given her stable hemodynamics. Continue to monitor and support as needed. 3. Renal failure: She is on dialysis at this time per Dr. Duong. She has suspected acute tubular necrosis and will undergo a trial of dialysis. We will continue to monitor. 4. Code status: We discussed her overall poor prognosis and her outlook. We discussed goals of care. I have recommended the patient be Do Not Resuscitate. The patient's daughter agrees but will discuss with her brother who is at work currently. We discussed attempting to manage the acute problems to see if she can recover but not escalating care further. Emotional support provided. Continue to monitor. cc: MD rTevon Petit MD Jason R. Seale, MD
[2019-09-30] MEDS: TEFLARO 200 MG in NS 250 ML IV SCH ×2 (05:15→17:25)
[2019-09-30] MEDS: HUMULIN R SUBQ SCH ×4 (07:25→20:11)
[2019-09-30 07:35] LABS: HEMATOCRIT 24.8 % (37.0-47.0); HEMOGLOBIN 7.5 g/dL (12.0-16.0); MCHC 30.2 g/dL (33-37); MCV 102.5 FL (81-99); MPV 11.1 FL (7.4-10.4); RBC 2.42 XMIL (4.2-5.4); RDW 17.3 % (11.5-14.5); WBC 4.85 X1000 (4.8-10.8)
[2019-09-30 07:45] LABS: ALBUMIN 3.7 g/dL (3.5-5.0); CALCIUM 8.6 mg/dL (8.8-10.2); CREATININE 1.8 mg/dL (0.5-0.9); PHOSPHORUS 2.5 mg/dL (2.7-4.5); POTASSIUM 4.9 mmol/L (3.5-5.1)
[2019-09-30] MEDS: MYCOSTATIN CREAM TOP SCH ×2 (09:00→20:12)
[2019-09-30] MEDS: ZOFRAN IV PRN ×2 (09:02→21:15)
[2019-09-30] MEDS: FOLIC ACID PO SCH (12:16)
[2019-09-30] MEDS: ASPIRIN PO SCH (12:16)
[2019-09-30] MEDS: COREG PO SCH ×3 (12:16→20:11)
[2019-09-30] MEDS: MULTAQ PO SCH ×3 (12:17→20:12)
[2019-09-30] MEDS: LANTUS INSULIN SUBQ SCH (12:17)
[2019-09-30] MEDS: PROTONIX PO SCH ×2 (12:17→20:12)
[2019-09-30] MEDS: ICAR-C PO SCH (12:17)
[2019-09-30] MEDS: VITAMIN B-12 PO SCH (12:18)
[2019-09-30] MEDS: VELTASSA PO SCH ×2 (12:18→20:12)
[2019-09-30] MEDS: DIFLUCAN 100 MG/NS 100 MG/50 ML IVPB IV SCH (12:22)
--- NOTE | 2019-09-30 15:33 | PROGRESS NOTE ---
DATE: 09/30/2019 SUBJECTIVE: Patient has no major complaints. OBJECTIVE: Vital Signs: Blood pressure is 171/67, heart rate of 86, respiratory rate of 15, temperature was 98 degrees, O2 saturation 99% on 3 L. Cardiovascular: Regular rate and rhythm. Pulmonary: Bilateral breath sounds clear to auscultation. GI: Soft, nontender. Skin: She has enormous amount of bruising and ecchymoses around her neck. LABORATORY DATA: White count is 4, hemoglobin and hematocrit is 7 and 24, and platelets are 56,000, which I am not quite sure why her platelets are so low, they were normal when she came in and then they steadily dropped. They have plateaued. PROBLEM LIST: 1. Acute on chronic renal failure. She is getting dialysis. She is much improved today as far as her mental status. She is still confused, but she is much more awake and alert. 2. Anemia which is still low, probably related to renal failure, but she also has thrombocytopenia which Hematology/Oncology has been consulted. She has a history of metastatic colon cancer. She is on palliative treatment and apparently she they are having discussions about her code status, which I agree. Do not resuscitate is most likely appropriate. I will defer if she needs platelet transfusion because she does look like she is having kind of slow bleeding. I would avoid heparin and we probably need to check a heparin antibody but we will see how things look. DISPOSITION: Pending her clinical status. We will continue to monitor closely. cc: Trevon Gaytan MD
--- NOTE | 2019-09-30 15:39 | GENERAL SURGERY PROGRESS NOTE ---
DATE: 09/30/2019 SUBJECTIVE: She has had some agitation overnight, per the family member. PHYSICAL EXAM: Vital signs: She is afebrile. Heart rate is occasionally in the low 100s. She has been hypertensive 160s to 180s systolic. She is on 5 L nasal cannula, saturating in the high 90s. General: She is alert, not really responsive, seems disoriented. Cardiovascular: Sinus tachycardia. Integument: Warm, dry. Peripheral vascular well-perfused. Trace lower extremity edema. There is chronic skin changes of bilateral cast, but I do not see any acute purulence or erythema. LABORATORY DATA: White count 4, hematocrit is 24. Creatinine is 1.8. ASSESSMENT AND PLAN: This is a 79-year-old female initially admitted for lower extremity cellulitis. She has had exacerbation of multiple medical issues ongoing. She is being followed by the hospitalist and Nephrology services as well as the Oncology services. We will follow along but from a cellulitis lower extremity standpoint she seems to be doing fine but has multiple other issues ongoing. cc: MD Trevon Combs MD
--- NOTE | 2019-09-30 16:20 | NEPHROLOGY PROGRESS NOTE ---
DATE: 09/30/2019 SUBJECTIVE: She is much more alert today. Spontaneously awake and verbal but minimal. Follows simple commands. OBJECTIVE: Vital Signs: Blood pressure 171/67, heart rate 86, respirations 15. General: No acute distress. Skin: Warm and dry. Neck: Neck veins are difficult to read. She has diffuse neck swelling and bruising. Heart: Regular with S4. Lungs: Equal. No crackles or wheezes. Abdomen: Soft, nontender, obese. Bowel sounds present. Extremities: With 2+ edema. No clubbing or cyanosis. IMPRESSION: Acute kidney injury. She has been treated with SLED on a daily basis. Urine output remains low. Her volume status is progressively improving. Mental status is much better today. Electrolytes and acid-base are in target. cc: MD Trevon Larsen MD
[2019-09-30] MEDS: LEVAQUIN 250 MG/D5W 250 MG/50 ML IVPB IV SCH (16:49)
[2019-09-30] MEDS: LABETALOL IV PRN (19:22)
[2019-09-30] MEDS: DUONEB (A & A) INH PRN (19:40)
[2019-09-30] MEDS: SINGULAIR PO SCH (20:12)
[2019-10-01] MEDS: LABETALOL IV PRN ×4 (03:11→20:01)
[2019-10-01] MEDS: HUMULIN R SUBQ SCH ×4 (06:10→20:01)
[2019-10-01] MEDS: TEFLARO 200 MG in NS 250 ML IV SCH ×2 (06:11→18:02)
[2019-10-01 07:05] LABS: HEMATOCRIT 24.1 % (37.0-47.0); HEMOGLOBIN 7.5 g/dL (12.0-16.0); MCH 32.3 PG (27-31); MCHC 31.1 g/dL (33-37); MCV 103.9 FL (81-99); RBC 2.32 XMIL (4.2-5.4); RDW 17.5 % (11.5-14.5); WBC 4.56 X1000 (4.8-10.8)
[2019-10-01] MEDS: ZOFRAN IV PRN ×3 (07:30→20:01)
[2019-10-01 07:55] LABS: ALBUMIN 3.7 g/dL (3.5-5.0); CALCIUM 9.2 mg/dL (8.8-10.2); CREATININE 2.8 mg/dL (0.5-0.9); PHOSPHORUS 3.6 mg/dL (2.7-4.5); POTASSIUM 5.2 mmol/L (3.5-5.1)
[2019-10-01] MEDS: COREG PO SCH ×2 (09:25→20:06)
[2019-10-01] MEDS: FOLIC ACID PO SCH (09:25)
[2019-10-01] MEDS: ICAR-C PO SCH (09:25)
[2019-10-01] MEDS: LANTUS INSULIN SUBQ SCH (09:26)
[2019-10-01] MEDS: MULTAQ PO SCH ×2 (09:26→20:06)
[2019-10-01] MEDS: PROTONIX PO SCH ×2 (09:27→20:07)
[2019-10-01] MEDS: VITAMIN B-12 PO SCH (09:28)
[2019-10-01] MEDS: VELTASSA PO SCH ×2 (09:28→20:08)
[2019-10-01] MEDS: MYCOSTATIN CREAM TOP SCH ×2 (10:34→20:07)
[2019-10-01] MEDS: DIFLUCAN 100 MG/NS 100 MG/50 ML IVPB IV SCH (11:27)
[2019-10-01] MEDS: CLINIMIX E 4.25%-5% SOLUTION 1,000 ML IV SCH (14:41)
--- NOTE | 2019-10-01 14:45 | PROGRESS NOTE ---
DATE: 10/01/2019 SUBJECTIVE: Patient has no major complaints. OBJECTIVE: Vitals: Blood pressure is still high, 181/80, heart rate 84, respiratory rate 16, temperature 98 degrees, 99% on 2 L. Cardiovascular: Regular rate and rhythm. Pulmonary: Bilateral breath sounds clear to auscultation. GI: Soft, nontender, nondistended. Bowel sounds are positive. LABORATORY DATA: White count is 4, hemoglobin and hematocrit 7 and 24, platelets of 73,000, which is an improvement. Potassium 5.2. BUN and creatinine of 35 and 2.8. PROBLEM LIST: 1. Acute on chronic renal failure but still oliguric, acute tubular necrosis. She is getting dialysis per Renal Service. I anticipate she probably will need some tomorrow at their discretion. 2. Anemia of chronic renal failure. We will continue to monitor. Hemoglobin and hematocrit are stable. 3. Thrombocytopenia. That appears to be better. I did order a heparin induced thrombocytopenia antibody, waiting on getting those results back. 4. Acute on chronic respiratory failure. She seems to be doing better. She does have a cough, so we will continue to follow closely. 5. Left lower extremity cellulitis. She is on Teflaro. This is day 4. DISPOSITION: We are looking at multiple issues. We will see how she does long-term. Anticipate she will need rehab though. cc: Trevon Gyatan MD
--- NOTE | 2019-10-01 15:02 | INFECTIOUS DISEASE PROGRESS NO ---
DATE: 10/01/2019 PRESENT ILLNESS: The patient has bilateral leg cellulitis, both of which have improved quite a bit during hospitalization. The patient does have bibasilar pneumonia, and most recently it has been discovered that the patient has sphenoid sinusitis as seen on CT scan. MEDICATIONS: This is day 4 of treatment with ceftaroline and day 3 of treatment with Levaquin. PHYSICAL EXAMINATION: Vital signs: Temperature is 98 degrees, pulse 84, respirations 16, blood pressure 181/80. General: This is an ill-appearing, elderly female. She does not appear to be as critically ill as she was last week. Head, eyes, ears, nose and throat: She can hear my spoken words and see near objects. She does not have any white patching on her tongue. Neck: No pain with movement. Cardiovascular: Heart rate is irregular. Lungs: Clear to auscultation. Abdomen: Soft and nontender. Extremities: Both legs are not erythematous, and there is less swelling, and there is no drainage coming from them. The patient in the right groin has a catheter in place. The site is not erythematous or purulent. Thorax: The patient on the right side of her chest has a Port-A-Cath. That site too also is not erythematous or purulent. Neurologic: The patient is awake. She can move her extremities, but she is weak. There is no tremor. LAB AND X-RAY: The patient's CBC shows a white count of 4560, hemoglobin 7.5, platelet count 73,000. Creatinine is 2.8. GFR 16. Procalcitonin is 0.65 which translates into that it is very likely that the patient does have pneumonia. Hepatitis panel is nonreactive. Head CT scan showed sphenoid sinusitis. ASSESSMENT AND PLAN: The patient has pneumonia and sinusitis. I plan to continue ceftaroline and Levaquin. Dr. Gaytan has ordered fluconazole and is managing it. COMORBIDITIES: The patient is elderly, and she has diabetes, gastroesophageal reflux disease, colon cancer, renal failure for which she is on hemodialysis. cc: MD Trevon Gudino MD
--- NOTE | 2019-10-01 15:11 | GENERAL SURGERY PROGRESS NOTE ---
DATE: 10/01/2019 Clinically, she is about the same. She seems more alert. Says she feels some better. No complaints regarding her leg. No fevers. No tachycardia. OBJECTIVE: Vitals: Blood pressure 179/77. General: She is alert. Cardiovascular: Normal rate. Pulmonary: She is on supplemental O2. Integument: Warm, dry. Peripheral vascular: She has bilateral lower extremity edema, chronic skin changes. No signs of cellulitis or infection. LABS: Creatinine is 2.8, potassium 5.2. White count 4. ASSESSMENT AND PLAN: This is a 79-year-old female with multiple medical issues. Admitted with cellulitis; this seems to have resolved. We will defer medical management to the medical services but no plan for surgical intervention. cc: MD Trevon Combs MD
[2019-10-01] MEDS: LEVAQUIN 250 MG/D5W 250 MG/50 ML IVPB IV SCH (16:28)
[2019-10-01] MEDS: SINGULAIR PO SCH (20:08)
[2019-10-02] MEDS: LABETALOL IV PRN ×2 (01:47→07:30)
[2019-10-02] MEDS: HUMULIN R SUBQ SCH ×4 (06:35→20:30)
[2019-10-02] MEDS: TEFLARO 200 MG in NS 250 ML IV SCH ×2 (06:35→18:30)
[2019-10-02] MEDS ORDERED: NS 2,000 ML MISC PRN (06:44)
[2019-10-02] MEDS ORDERED: HEPARIN IV PRN (06:44)
[2019-10-02] MEDS ORDERED: TIGHT: 0.2 ML/HR FOR DIALYSIS MISC PRN (06:44)
[2019-10-02 06:48] LABS: BASO# 0.02 X1000 (0.0-0.2); BASO% 0.5 % (0.0-0.8); EOS# 0.07 X1000 (0.0-0.7); EOS% 1.6 % (0.0-10.0); HEMATOCRIT 26.7 % (37.0-47.0); HEMOGLOBIN 8.3 g/dL (12.0-16.0); IMM GRAN# 0.05 X1000 (0.0-0.04); IMM GRAN% 1.2 % (0.0-0.5); LYMPH# 0.34 X1000 (1.2-3.4); MCH 31.4 PG (27-31); MCHC 31.1 g/dL (33-37); MCV 101.1 FL (81-99); MONO# 0.27 X1000 (0.11-0.59); MONO% 6.4 % (1.7-9.3); MPV 10.3 FL (7.4-10.4); NEUT% 82.3 % (42.2-75.2); PLT 71 X1000 (130-400); RBC 2.64 XMIL (4.2-5.4); RDW 16.6 % (11.5-14.5); WBC 4.25 X1000 (4.8-10.8)
[2019-10-02] MEDS ORDERED: VASELINE TOP PRN (07:55)
[2019-10-02 08:15] LABS: CALCIUM 9.4 mg/dL (8.8-10.2); CREATININE 3.5 mg/dL (0.5-0.9); POTASSIUM 5.4 mmol/L (3.5-5.1)
--- NOTE | 2019-10-02 09:01 | INFECTIOUS DISEASE PROGRESS NO ---
DATE: 10/02/2019 PRESENT ILLNESS: The patient initially had bilateral leg cellulitis that has cleared up well. She does now have a bibasilar pneumonia and sphenoid sinusitis. MEDICATIONS: This is day 5 of ceftaroline and day 4 of Levaquin. PHYSICAL EXAMINATION: Vital Signs: Temperature is 98 degrees, pulse 83, respirations 18, blood pressure 215/95. General: This is an ill-appearing elderly female. She is in no acute distress. Head/Eyes/Ears/Nose/Throat: She can hear my spoken words and see near objects. She does not have any white coating of her tongue. Neck: No pain with movement. Cardiovascular: Heart rate was irregular. Lungs: Clear to auscultation. Thorax: The patient has a Port-A-Cath. The site is not erythematous or purulent. Abdomen: Soft and nontender. Extremities: In the right groin, there is a dialysis catheter. Both legs are edematous but not red or draining. Neurologic: The patient is awake. She can move her extremities,but she is very weak. LAB AND X-RAY: The patient's CBC for today shows a white count of 4250, hemoglobin 8.3, and platelet count of 71,000. Creatinine is 3.5, GFR is 13. Procalcitonin is 0.65, which translates into that there is a strong likelihood that the patient has pneumonia. ASSESSMENT AND PLAN: The patient has pneumonia and sinusitis. I will continue ceftaroline and Levaquin. COMORBIDITIES: The patient is elderly, and she has diabetes mellitus, gastroesophageal reflux disease, colon cancer, renal failure for which the patient is on hemodialysis. cc: MD Trevon Gudino MD [facility]
[2019-10-02] MEDS: COREG PO SCH ×2 (10:16→21:36)
[2019-10-02] MEDS: FOLIC ACID PO SCH (10:16)
[2019-10-02] MEDS: ICAR-C PO SCH (10:16)
[2019-10-02] MEDS: LANTUS INSULIN SUBQ SCH ×2 (10:17→10:18)
[2019-10-02] MEDS: MULTAQ PO SCH ×2 (10:17→21:36)
[2019-10-02] MEDS: VELTASSA PO SCH ×2 (10:19→21:37)
[2019-10-02] MEDS: VITAMIN B-12 PO SCH (10:19)
[2019-10-02] MEDS: PROTONIX PO SCH ×2 (10:19→21:37)
[2019-10-02] MEDS: CLINIMIX E 4.25%-5% SOLUTION 1,000 ML IV SCH (10:23)
[2019-10-02] MEDS: MYCOSTATIN CREAM TOP SCH ×2 (10:23→21:36)
[2019-10-02] MEDS: ZOFRAN IV PRN ×3 (10:26→21:32)
[2019-10-02] MEDS ORDERED: LABETALOL IV SCH (14:45)
[2019-10-02] MEDS: VASOTEC IV SCH (16:04)
[2019-10-02] MEDS: NITROGLYCERIN TOP SCH ×2 (16:04→18:30)
--- NOTE | 2019-10-02 16:27 | PROVIDER PROGRESS NOTE ---
Progress Note Subjective: Pt was dry heaving in bed. She acknowledged my presence but did not follow commands. Objective: temperature 98.0, pulse 88, respirations 21, blood pressure 213/93, 02 sat 95% on room air. General: ill obese white female lying in bed in no acute distress HEENT: normocephalic, atraumatic, pupils equal and reactive, mucous membranes dry. Skin: warm and dry. Bruising to neck area. Port to the left chest wall, vas-cath to right groin. Neck: supple, Jvd observed. Cardiovascular: S1S2, regular rate with extra heart tones. No murmur or gallop Respiratory: Clear anteriorly Abdomen: obese, soft, nontender, nondistended, bowel sounds active. Extremities: 1+ pitting edema with cellulitis present to BLE :Chinchilla with minimum Shi urine Neurological: Alert, unable to follow commands, Labs: Wbc 4.25, hemoglobin 8.3, hematocrit 26.7, platelet count 71, sodium 142, potassium 5.4, chloride 109, carbon dioxide 19, BUN 52, creatinine 3.5. Intake 910, output 55. Impression: Acute kidney injury. Acute tubular necrosis. Newly required renal replacement therapy. She will have hemodialysis today with a 2K bath and attempt a 2L ultrafiltration. Blood pressure. Above target. She has not been receiving any blood pressure medicines by mouth for at least 48 hours due to cognitive status. PRN labetalol 20mg IV in place. Fluid volume. Expanded. We will attempt hemodialysis again today. Thrombocytopenia. Improving Electrolytes and acid base balance. Correct with hemodialysis. Medication review.
[2019-10-02] MEDS: LEVAQUIN 250 MG/D5W 250 MG/50 ML IVPB IV SCH (17:02)
--- NOTE | 2019-10-02 18:42 | PROGRESS NOTE ---
DATE: 10/02/2019 SUBJECTIVE: Patient is still not eating very well. She is still fairly confused. OBJECTIVE: Vital signs: Blood pressure is 182/81, heart rate of 89, respiratory rate 13, temperature 98.2 degrees, 96 percent on room air. Cardiovascular: Regular rate and rhythm. Pulmonary: Bilateral breath sounds, clear to auscultation. GI: Soft, nontender, nondistended. Bowel sounds are positive. : Urine output is still very poor. LABORATORY DATA: White count is 4, hemoglobin and hematocrit 8 and 26, platelets 71,000. BUN and creatinine 52 and 3.5, potassium of 5.4. PROBLEM LIST: 1. Acute on chronic renal failure with oliguria. We will continue hemodialysis per Renal Service. Urine output still has not picked up. 2. Anemia. She seems to be stabilizing. 3. Thrombocytopenia, also seems to be stabilizing. 4. History of metastatic colon cancer. We are going to continue to monitor. There were discussions about Code status, which I do not think that has progressed necessarily. 5. Left lower extremity cellulitis. She is on Teflaro which I believe is day 5. Dr. Pruitt count is day 5 of Teflaro, day 4 of Levaquin. Disposition pending her clinical status. 6. Type 2 diabetes. We will continue to monitor. 7. Hypertension. Her blood pressure is still not under very good control. We have added nitroglycerin paste and Vasotec and we will monitor. cc: Trevon Gaytan MD
[2019-10-02] MEDS: SINGULAIR PO SCH (21:37)
[2019-10-03] MEDS: VASOTEC IV SCH ×2 (00:14→12:05)
[2019-10-03] MEDS: NITROGLYCERIN TOP SCH ×4 (00:14→18:25)
[2019-10-03] MEDS: CLINIMIX E 4.25%-5% SOLUTION 1,000 ML IV SCH (06:01)
[2019-10-03] MEDS: TEFLARO 200 MG in NS 250 ML IV SCH ×2 (06:01→18:25)
[2019-10-03] MEDS: HUMULIN R SUBQ SCH ×4 (06:10→21:02)
[2019-10-03 06:22] LABS: ALBUMIN 3.7 g/dL (3.5-5.0); CALCIUM 8.8 mg/dL (8.8-10.2); CREATININE 2.8 mg/dL (0.5-0.9); PHOSPHORUS 3.2 mg/dL (2.7-4.5); POTASSIUM 4.6 mmol/L (3.5-5.1)
[2019-10-03 06:29] LABS: BASO# 0.02 X1000 (0.0-0.2); BASO% 0.4 % (0.0-0.8); EOS# 0.25 X1000 (0.0-0.7); HEMATOCRIT 26.9 % (37.0-47.0); HEMOGLOBIN 8.5 g/dL (12.0-16.0); IMM GRAN# 0.04 X1000 (0.0-0.04); IMM GRAN% 0.8 % (0.0-0.5); LYMPH# 0.33 X1000 (1.2-3.4); LYMPH% 6.7 % (20.5-51.1); MCH 31.3 PG (27-31); MCHC 31.6 g/dL (33-37); MCV 98.9 FL (81-99); MONO# 0.36 X1000 (0.11-0.59); MONO% 7.3 % (1.7-9.3); NEUT# 3.96 X1000 (1.4-6.5); NEUT% 79.8 % (42.2-75.2); PLT 78 X1000 (130-400); RBC 2.72 XMIL (4.2-5.4); RDW 16.4 % (11.5-14.5); WBC 4.96 X1000 (4.8-10.8)
[2019-10-03] MEDS: DUONEB (A & A) INH PRN ×5 (08:20→23:25)
[2019-10-03] MEDS: LANTUS INSULIN SUBQ SCH (09:16)
[2019-10-03] MEDS: PROTONIX PO SCH ×2 (10:39→21:07)
[2019-10-03] MEDS: VELTASSA PO SCH ×2 (10:39→21:08)
[2019-10-03] MEDS: COREG PO SCH ×2 (10:39→21:06)
[2019-10-03] MEDS: FOLIC ACID PO SCH (10:40)
[2019-10-03] MEDS: ICAR-C PO SCH (10:40)
[2019-10-03] MEDS: MULTAQ PO SCH ×2 (10:40→21:07)
[2019-10-03] MEDS: VITAMIN B-12 PO SCH (10:40)
[2019-10-03] MEDS: MYCOSTATIN CREAM TOP SCH ×2 (10:41→21:07)
--- NOTE | 2019-10-03 14:34 | PROGRESS NOTE ---
DATE: 10/03/2019 SUBJECTIVE: The patient has no major complaints. OBJECTIVE: Vital Signs: Blood pressure is 165/80, heart rate of 83, respiratory rate of 15, temperature 97.3 degrees, saturating 94% on room air. Cardiovascular: Regular rate and rhythm. Pulmonary: Bilateral breath sounds. Clear to auscultation. GI: Soft, nontender, nondistended. Bowel sounds are positive. LABORATORY DATA: White count is 4, hemoglobin and hematocrit 8 and 26, platelets 78,000. BUN and creatinine 45 and 2.8. I do not think she got dialyzed today. PROBLEM LIST: 1. Acute on chronic renal failure, requiring dialysis. Dr. Duong will continue to follow. Urine output is still very scant. She got dialyzed yesterday, so we are going to monitor. 2. Blood pressure is in place. She is still not taking by mouth very well, but we are working with her. Will continue treatment. 3. Thrombocytopenia. Hemoglobin and hematocrit are stable, and the platelets are slowly resolving. Not quite sure what triggered this, but we will continue to follow. 4. Disposition. Obviously, she will need rehab. She is getting rehab. We just have to wait on determining if we are going to continue dialysis or not, and then also determining what she needs to start eating and things like that. I am going to put her on a little bit of Megace for appetite stimulation. Will see how she does. cc: Trevon Gaytan MD
--- NOTE | 2019-10-03 15:26 | INFECTIOUS DISEASE PROGRESS NO ---
DATE: 10/03/2019 PRESENT ILLNESS: The patient initially had bilateral leg cellulitis but this has cleared up well. She now is being treated for a bibasilar pneumonia and sphenoid sinusitis. MEDICATIONS: This is day 6 of ceftaroline and day 5 of Levaquin. PHYSICAL EXAMINATION: Vital Signs: Temperature is 97.9 degrees, pulse 93, respirations 20, blood pressure 167/80. General: This is an ill-appearing, elderly female. She is in no acute distress. Head, eyes, ears, nose, throat: She can hear my spoken words and see near objects. She does not have any white patches in her mouth. Neck: No pain with movement. Cardiovascular: Heart rate is irregular. Lungs: Clear to auscultation. Thorax: The patient has a right-sided Port-A-Cath. The site is not erythematous, purulent, or tender. Abdomen: Soft and nontender. The patient has a dialysis catheter in the right groin area. That site also is not erythematous or purulent. Neurologic: The patient is awake. She can move her extremities but she is very weak. She does not have a tremor. LAB AND X-RAY: There is no new chest x-ray for today. Her CBC shows a white count of 4,960, hemoglobin 8.5, and platelet count 78,000. Creatinine is 2.8. GFR is 16. As mentioned yesterday, the patient has a procalcitonin level of 0.68 which translates in to her having a strong likelihood for pneumonia. The patient has a strong likelihood of having pneumonia. ASSESSMENT AND PLAN: The patient has pneumonia and sinusitis. I plan on continuing ceftaroline and Levaquin. COMORBIDITIES: The patient is elderly. She also has diabetes mellitus, gastroesophageal reflux disease, colon cancer, renal failure for which the patient is on hemodialysis. cc: MD Trevon Gudino MD
--- NOTE | 2019-10-03 15:26 | Diag Imaging Result Doc PS360 ---
CHEST-PORTABLE - 10/03/2019 INDICATION: pneumonia COMPARISON: 09/25/2019 FINDINGS: Stable right chest port in good position. Stable low lung volumes. Stable cardiomegaly and pulmonary vascular congestion. Stable diffuse hazy interstitial infiltrates bilaterally most consistent with pulmonary edema. No significant pleural effusion. IMPRESSION: Congestive heart failure. No change from prior. Electronically signed by Everett Gao 10/03/2019 3:24 PM
--- NOTE | 2019-10-03 15:41 | NEPHROLOGY PROGRESS NOTE ---
DATE: 10/03/2019 DATE AND TIME SEEN: 10/03/2019 06:50 SUBJECTIVE: Ms. Burnett is resting quietly in bed. Head of the bed is slightly elevated. Her daughter is at her bedside. She appears in no acute distress. VITAL SIGNS: Most recent vital signs, temperature 97.9 degrees, blood pressure 166/61, heart rate 90, and respirations are 18. She is on room air. Last recorded saturation 96%. She has had 25 in. She has had 3599 out with 100 mL of that void, the rest from dialysis. LABORATORY DATA: Sodium 137, potassium 4.6, chloride 102, CO2 23, BUN 45, creatinine 2.8, and glucose 179. Her anion gap is 12, calcium 8.8, phosphorus 3.2, and albumin 3.7. White count 4.96, hemoglobin 8.5, hematocrit 26.9, with a platelet count of 78,000. OBJECTIVE: This is a 79-year-old white female. She is resting quietly in bed. She is in no acute distress. Skin: Warm and dry. Bruising to the neck area. Port to the left chest wall. Vasc cath to the right groin. HEENT: Normocephalic, atraumatic. Conjunctiva is pale. She has MELISSA. Mucous membranes are dry. Neck: Supple. No JVD. Cardiovascular: Regular rate and rhythm. S4 is present. Lungs: Clear to auscultation anteriorly. Equal excursion. She is currently on room air. Poor inspiratory effort. Abdomen: Large, obese, soft, and nontender. Positive bowel sounds. Genitourinary: Not inspected. Chinchilla catheter is in place with minimal urine out, dialysis assist. Extremities: Continues with 1+ edema. Cellulitis present with dry skin to the bilateral lower extremities. Neurological: She is alert and is able to follow commands, though speaks minimal words. ASSESSMENT AND PLAN: 1. Acute kidney injury. More than likely acute tubular necrosis. Patient has a vasc cath to the right femoral. This is dry and intact. She tolerated dialysis well yesterday. No indications for intervention today. 2. Electrolytes and acid-base balance with correction on dialysis. These remain stable. 3. Anemia. This is low but stable. 4. Thrombocytopenia. This continues to improve. 5. PT/OT. She has not been able to sit up. Dictated by ZAINA Harris for Channing Duong MD Face to face encounter, data reviewed, discussed with Nathaly Longo on 10/03/19. I agree with the above assessment and plan of care. cc: ZAINA Harris MD Alexis R. Penot, MD [facility]
[2019-10-03] MEDS: LEVAQUIN 250 MG/D5W 250 MG/50 ML IVPB IV SCH (16:17)
[2019-10-03] MEDS: MEGACE LIQUID PO SCH (21:02)
[2019-10-03] MEDS: SINGULAIR PO SCH (21:08)
[2019-10-04] MEDS: NITROGLYCERIN TOP SCH ×4 (00:17→18:21)
[2019-10-04] MEDS: VASOTEC IV SCH ×2 (00:17→12:12)
[2019-10-04] MEDS: DUONEB (A & A) INH PRN ×4 (03:05→19:31)
[2019-10-04] MEDS: CLINIMIX E 4.25%-5% SOLUTION 1,000 ML IV SCH (04:16)
[2019-10-04 06:23] LABS: BASO# 0.01 X1000 (0.0-0.2); BASO% 0.2 % (0.0-0.8); EOS# 0.28 X1000 (0.0-0.7); HEMATOCRIT 28.2 % (37.0-47.0); HEMOGLOBIN 8.8 g/dL (12.0-16.0); IMM GRAN# 0.05 X1000 (0.0-0.04); IMM GRAN% 0.9 % (0.0-0.5); LYMPH# 0.41 X1000 (1.2-3.4); LYMPH% 7.4 % (20.5-51.1); MCHC 31.2 g/dL (33-37); MCV 99.3 FL (81-99); MONO% 5.4 % (1.7-9.3); MPV 9.6 FL (7.4-10.4); NEUT# 4.51 X1000 (1.4-6.5); NEUT% 81.1 % (42.2-75.2); PLT 67 X1000 (130-400); RBC 2.84 XMIL (4.2-5.4); RDW 16.8 % (11.5-14.5); WBC 5.56 X1000 (4.8-10.8)
[2019-10-04] MEDS: HUMULIN R SUBQ SCH ×4 (06:23→21:23)
[2019-10-04] MEDS: TEFLARO 200 MG in NS 250 ML IV SCH ×2 (06:23→21:29)
[2019-10-04] MEDS ORDERED: NS 2,000 ML MISC PRN (06:25)
[2019-10-04] MEDS ORDERED: HEPARIN IV PRN (06:25)
[2019-10-04] MEDS ORDERED: TIGHT: 0.2 ML/HR FOR DIALYSIS MISC PRN (06:25)
[2019-10-04 06:39] LABS: ALBUMIN 3.6 g/dL (3.5-5.0); CALCIUM 9.2 mg/dL (8.8-10.2); CREATININE 3.9 mg/dL (0.5-0.9); PHOSPHORUS 4.1 mg/dL (2.7-4.5); POTASSIUM 5.1 mmol/L (3.5-5.1)
[2019-10-04] MEDS: LANTUS INSULIN SUBQ SCH (08:17)
[2019-10-04] MEDS: MEGACE LIQUID PO SCH ×2 (08:18→21:30)
[2019-10-04] MEDS: ZOFRAN IV PRN (08:22)
[2019-10-04] MEDS: FOLIC ACID PO SCH (09:11)
[2019-10-04] MEDS: COREG PO SCH ×2 (09:11→21:30)
[2019-10-04] MEDS: VITAMIN B-12 PO SCH (09:12)
[2019-10-04] MEDS: MULTAQ PO SCH ×2 (09:12→21:30)
[2019-10-04] MEDS: MYCOSTATIN CREAM TOP SCH ×2 (09:12→22:46)
[2019-10-04] MEDS: PROTONIX PO SCH ×2 (09:12→21:30)
[2019-10-04] MEDS: ICAR-C PO SCH (09:12)
[2019-10-04] MEDS: VELTASSA PO SCH ×2 (09:12→21:30)
--- NOTE | 2019-10-04 11:21 | NEPHROLOGY PROGRESS NOTE ---
DATE: 10/04/2019 TIME SEEN: 0710. SUBJECTIVE: Ms. Burnett is resting quietly in bed. She is more awake today. Her daughter is at her bedside. She has complaints of pain to her right groin, which is where her Vas-Cath is for dialysis. OBJECTIVE: Vital Signs: Temperature 97.4 degrees, blood pressure 163/72, heart rate 100, respirations 19. She is on 2 L nasal cannula. Last recorded saturation 100%. She has had 1550 in, and 145 mL out to Chinchilla catheter. Labs: Sodium is 136, her potassium is 5.1, her CO2 is 22, chloride is 102, BUN 61, her creatinine is 3.9, glucose of 182. The patient has an anion gap of 12. Her calcium is 9.2, phosphorus 4.1, albumin is 3.6. The patient has a white count of 5.56, hemoglobin 8.8, hematocrit is 28.2 with a platelet count of 67,000. PHYSICAL EXAMINATION: General: This is a 79-year-old white female resting quietly in bed. She appears chronically ill, no acute distress this a.m. Skin: Warm and dry with bruising noted to the right and left neck area. HEENT: Normocephalic, atraumatic. Conjunctivae pale. She has MELISSA. Mucous membranes are dry. Neck: Supple. No JVD present. Cardiovascular: Regular rate and rhythm. S4 is present. Lungs: Clear to auscultation anteriorly, equal excursion on room air with poor inspiratory effort. Abdomen: Large, obese soft, nontender. Positive bowel sounds. Genitourinary: Not inspected. Chinchilla catheter is in place. Minimal urine out. Extremities: 1+ lower extremity edema with cellulitis present with dry skin to bilateral lower extremities. Tunneled catheter to the right groin, dry and intact. Neurological: She is alert and oriented and follows commands. ASSESSMENT AND PLAN: 1. Acute kidney injury, secondary to acute tubular necrosis. Patient has a Vas- Cath to the right femoral. This is dry and intact. We will plan for dialysis today. She is to dialyze for 3-1/2 hours, place her on a 2K. We will attempt to pull 2 to 3 liters of ultrafiltration as tolerated. 2. Electrolytes and acid-base balance with correction on dialysis. 3. Anemia. Hemoglobin of 8.8. This is stable. 4. Cellulitis. This continues to be followed by the primary care. The patient continues on lower extremity treatment per primary care. I would like to thank you for allowing us to follow with this patient. Dictated by ZAINA Harris for Channing Duong MD Face to face encounter, data reviewed, discussed with Nathaly Longo on 10/04/19. I agree with the above assessment and plan of care. cc: ZAINA Harris MD Alexis R. Penot, MD [facility]
--- NOTE | 2019-10-04 11:22 | INFECTIOUS DISEASE PROGRESS NO ---
DATE: 10/04/2019 PRESENT ILLNESS: The patient initially was being treated for leg cellulitis. This has cleared up. The patient then was found to have a bibasilar pneumonia, but this too has cleared up. The patient does have sphenoid sinusitis and currently that is the infection that is being treated with antibiotics. MEDICATIONS: This is day 7 of ceftaroline and day 6 of Levaquin. PHYSICAL EXAMINATION: Vital Signs: Temperature is 97.4 degrees, pulse 89, respirations 16, blood pressure is 168/86. General: This is an ill-appearing elderly female. She is in no acute distress. She is lethargic. Head/Eyes/Ears/ Nose and Throat: No drainage was noted from the nose or ears. I did not see any white patches on her tongue. Neck: No pain with movement. Cardiovascular: Heart rate is irregular. Lungs: Clear to auscultation. Thorax: The patient has a right-sided Port-A-Cath. The site is not erythematous or bleeding. Abdomen: Soft and nontender. In the right groin the patient has a dialysis catheter in place. The site is not erythematous or purulent. Neurologic: The patient is lethargic. She is able to move her extremities but she is very weak. She does not have a tremor. Extremities: Both legs now are not erythematous and they are not draining any fluid. The cellulitis has cleared up. The legs however do remain edematous and so there is some darker discoloration of the skin of both distal legs. LAB AND X-RAY: CBC shows a white count of 5,560, hemoglobin 8.8, platelet count 67,000. Creatinine is 3.9, GFR is 11. Chest x-ray shows pulmonary edema, but no pneumonia. ASSESSMENT AND PLAN: The patient's pneumonia is cleared and now she is being treated for sinusitis with the combination of ceftaroline and Levaquin. COMORBIDITIES: The patient is elderly. She also is a diabetic and she has gastroesophageal reflux disease, colon cancer, renal failure for which the patient is on hemodialysis. cc: MD Trevon Gudino MD
--- NOTE | 2019-10-04 15:13 | PROGRESS NOTE ---
DATE: 10/04/2019 SUBJECTIVE: The patient has no major complaints. OBJECTIVE: Vital signs: Blood pressure is 143/75, heart rate of 112, respiratory rate of 20, temperature 97.6 degrees, 93% on room air. Cardiovascular: Regular rate and rhythm. Pulmonary: Bilateral breath sounds. Clear to auscultation. GI: Soft, nontender, nondistended. Bowel sounds are positive. LABORATORY DATA: White count is 5, hemoglobin and hematocrit 8.8 and 28, platelets of 67,000. BUN and creatinine 61 and 3.9. PROBLEM LIST: 1. Acute on chronic renal failure. She is still dialysis dependent. Her urine output has picked up a little bit, but she is still very oliguric. She is getting dialyzed today, but she looks much more awake today. 2. Hypertension. We will continue medication. She seems to be better. Some of the limitations are she just will not eat. 3. Metastatic colon cancer with poor prognosis. Obviously we are continuing to follow. 4. Anemia, thrombocytopenia. Data stable currently. Her HIT antibody was negative. 5. Disposition. The main thing now is just deciding if she is going to need tube feeds because she is really not eating enough to sustain her. I am a little bit more hopeful as she seems more awake today, but we will continue to follow. 6. Cellulitis which has pretty much cleared up. Pneumonia which has cleared up, but Dr. Pruitt has her on ceftaroline and Levaquin, day 7 and 6 respectively. DISPOSITION: Will be rehab but we have to decide about her dialysis status and tube feed status. cc: Trevon Gaytan MD
[2019-10-04] MEDS: LEVAQUIN 250 MG/D5W 250 MG/50 ML IVPB IV SCH (18:21)
--- NOTE | 2019-10-04 21:16 | HEMO/ONC PROGRESS NOTE ---
DATE: 10/04/2019 SUBJECTIVE: Ms. Burnett is lying in her hospital bed, receiving a breathing treatment. There is no one at bedside. OBJECTIVE: Vital Signs: Temperature 97.6, heart rate 112, respirations 18, blood pressure 143/75, O2 saturation 93% on room air. LABORATORY: White blood cells are 5.56, hemoglobin 8.8, platelet count 67. PHYSICAL EXAMINATION: Cardiovascular: Tachycardia noted. Respiratory: Coarse breath sounds. Gastrointestinal: Abdomen is soft, nondistended, nontender. Extremities: She has some edema. ASSESSMENT AND PLAN: 1. Metastatic colorectal cancer. Her treatment has been on hold. She has been receiving palliative treatment. Overall prognosis is still poor. We have previously discussed with the patient being DO NOT RESUSCITATE. We returned, as her code status has still not been ordered, and we were going to follow up; however, the patient's daughter is not at bedside, and that would be the best person to communicate with. We will continue to follow along. 2. Anemia, multifactorial. The patient's hemoglobin is stable at 8.8. Continue to monitor. 3. Renal failure. Continue management per Dr. Duong. She continues on dialysis. 4. Disposition. Again, we have recommended her to be DO NOT RESUSCITATE. We have previously discussed this with the patient and her daughter and they agreed, but were going to discuss with the patient's son, and we have not heard anything since that time. We will continue to follow along. Review of the chart shows that the plan is for her to be discharged to rehab. We will have her follow up with us after she gets discharged from rehab. Dictated by AILIN Borges for Ananya Acuña MD cc: MD Trevon Petit MD Pt seen and examined and above note reflects my history, physical exam, assessment and plan. Ananya SOL
[2019-10-04] MEDS: SINGULAIR PO SCH (21:30)
[2019-10-05] MEDS: NITROGLYCERIN TOP SCH ×2 (01:09→07:01)
[2019-10-05] MEDS: VASOTEC IV SCH ×3 (01:09→21:29)
[2019-10-05] MEDS: CLINIMIX E 4.25%-5% SOLUTION 1,000 ML IV SCH ×2 (01:12→21:31)
[2019-10-05] MEDS: DUONEB (A & A) INH PRN ×4 (03:23→14:31)
[2019-10-05 06:38] LABS: BASO# 0.01 X1000 (0.0-0.2); BASO% 0.1 % (0.0-0.8); EOS# 0.38 X1000 (0.0-0.7); EOS% 4.5 % (0.0-10.0); HEMATOCRIT 27.2 % (37.0-47.0); HEMOGLOBIN 8.5 g/dL (12.0-16.0); IMM GRAN# 0.04 X1000 (0.0-0.04); IMM GRAN% 0.5 % (0.0-0.5); LYMPH# 0.44 X1000 (1.2-3.4); LYMPH% 5.2 % (20.5-51.1); MCH 30.9 PG (27-31); MCHC 31.3 g/dL (33-37); MCV 98.9 FL (81-99); MONO# 0.54 X1000 (0.11-0.59); MONO% 6.4 % (1.7-9.3); MPV 9.6 FL (7.4-10.4); NEUT# 7.03 X1000 (1.4-6.5); NEUT% 83.3 % (42.2-75.2); PLT 63 X1000 (130-400); RBC 2.75 XMIL (4.2-5.4); RDW 17.4 % (11.5-14.5); WBC 8.44 X1000 (4.8-10.8)
[2019-10-05] MEDS: HUMULIN R SUBQ SCH ×4 (06:58→21:06)
[2019-10-05 07:18] LABS: ALBUMIN 2.9 g/dL (3.5-5.0); CALCIUM 8.8 mg/dL (8.8-10.2); PHOSPHORUS 3.2 mg/dL (2.7-4.5); POTASSIUM 4.1 mmol/L (3.5-5.1)
[2019-10-05] MEDS: TEFLARO 200 MG in NS 250 ML IV SCH (08:49)
[2019-10-05] MEDS: VITAMIN B-12 PO SCH (08:54)
[2019-10-05] MEDS: MULTAQ PO SCH ×2 (08:55→21:30)
[2019-10-05] MEDS: PROTONIX PO SCH (08:55)
[2019-10-05] MEDS: COREG PO SCH ×2 (08:55→21:30)
[2019-10-05] MEDS: ICAR-C PO SCH (08:55)
[2019-10-05] MEDS: MEGACE LIQUID PO SCH ×2 (08:55→21:30)
[2019-10-05] MEDS: FOLIC ACID PO SCH (08:55)
[2019-10-05] MEDS: LANTUS INSULIN SUBQ SCH (08:57)
[2019-10-05] MEDS: MYCOSTATIN CREAM TOP SCH ×2 (08:58→21:33)
--- NOTE | 2019-10-05 12:18 | PROGRESS NOTE ---
DATE: 10/05/2019 INTERVAL HISTORY: No acute events overnight. She did have a pulse about 101 per minute. She also was slightly hypotensive. She was saturating well on room air. SUBJECTIVE: Ms Burnett denies any chest pain, shortness of breath. She is occasionally coughing with sputum production. She states she still has poor appetite and has not been able to eat by mouth. I encouraged her to eat by mouth currently. VITAL SIGNS: Temperature of 98.4 degrees, pulse 101, respiratory 18, blood pressure 107/62. She is saturating 94% on room air. PHYSICAL EXAMINATION: General: Not in acute distress. Oral cavity is moist. Lungs: Air entry bilaterally equal. No wheeze, rhonchi, or crackles. Cardiovascular: S1, S2 normal. Regular. No murmur or gallop. She has a right-sided chest port. She has a right groin hemodialysis catheter. Extremities: She has a left arm hematoma over the posterior aspect. She has bilateral lower extremity edema. Urine catheter. Central Nervous System: She is alert and oriented x3. INPUT AND OUTPUT: Suggests her urine output has only been 80 mL. LABORATORY DATA: Suggestive of anemia which is stable, thrombocytopenia. She also has elevated BUN and creatinine. Microbiology, no positive data new. ASSESSMENT AND PLAN: 1. Acute kidney injury on chronic kidney disease stage 2 or stage 3A due to acute illness on presentation leading to acute tubular necrosis. He continues to remain oliguric. Nephrology team on board and patient has been on intermittent hemodialysis through right groin catheter. 2. Bilateral and predominantly right lower extremity cellulitis with poorly healing wounds, pneumonia now improving. She is breathing well on room air and her cellulitis seems to have resolved. Continue intravenous ceftaroline and Levaquin as per Infectious Disease recommendations. 3. Metastatic colon cancer, on Vectibix which is currently on hold. Her anemia and thrombocytopenia is currently stable and her HIT antibody was negative. Oncology team on board. 4. Essential hypertension. Currently, she is normotensive. I am continuing her on carvedilol, and I added holding parameters or enalapril 8. 5. Atrial fibrillation appears chronic. Continue home Dronedarone. She is not listed to be taking anticoagulation at home. Considering her thrombocytopenia, I am holding anticoagulation. 6. Others. Continue intravenous Clinimix and megestrol until her appetite improves. I encouraged her to have oral intake; iron and folic acid for her chronic anemia; current dose of insulin for hyperglycemia and history of [id number] diabetes mellitus next. DISPOSITION: Continue physical therapy. I will have a discussion with family if they would like to take the patient to rehab in future. cc: Tony Tejeda MD
[2019-10-05] MEDS: VELTASSA PO SCH ×2 (13:48→23:43)
--- NOTE | 2019-10-05 14:33 | NEPHROLOGY PROGRESS NOTE ---
DATE: 10/05/2019 DATE AND TIME OF EXAM: 10/05/2019 at 0705 hours. SUBJECTIVE: Ms. Burnett is sitting up in bed. She is more awake and alert. States that she is hungry. Continues to have abdominal discomfort with passing gas. OBJECTIVE: Vital Signs: Temperature 98.6 degrees, blood pressure 120/54, heart rate 89, respirations are 17. She is on room air. Last recorded saturation 96%. She has had 1070 in, 3080 out with 3 L on dialysis. LABS: Sodium is 137, potassium is 4.1, chloride 102. Her CO2 is 24, BUN is 44, her creatinine is 3, glucose of 106. The patient has an anion gap of 11. Her calcium is 8.8, phosphorus 3.2, albumin is 2.9. White count 8.44, hemoglobin 8.5, hematocrit is 27.2, platelet count 63. PHYSICAL EXAMINATION: General: This is a 79-year-old white female. She appears in no acute distress. Skin: Warm and dry. HEENT: Normocephalic, atraumatic. Conjunctiva is pale. She has MELISSA. Mucous membranes are dry. Neck: Supple. Trachea midline. No JVD in the upright position. Cardiovascular: Regular rate and rhythm. S4 is present. Lungs: Clear to auscultation anteriorly. Equal excursion on room air. She continues with poor inspiratory effort, though she does have an incentive spirometer at the bedside. Abdomen: Large, round, soft, nontender. Positive bowel sounds. Genitourinary: Not inspected. Chinchilla catheter is in place with minimal urine out, assist with dialysis. Extremities: Has 1+ lower extremity edema with cellulitis present. Dry skin. No drainage noted. Integumentary: Tunnel dialysis catheter to the right groin. Neurological: She is more awake and alert today. Follows commands. Participates in conversations. ASSESSMENT AND PLAN: 1. Acute kidney injury secondary to acute tubular necrosis. Patient remains with a Vas-Cath to the right groin. We have spoken to the daughter. They are preparing preparation for possible discharge to [facility]. We will request Dr. Olivarez to evaluate and place dialysis tunnel catheter for discharge. 2. Electrolytes and acid-base balance with correction on dialysis. 3. Anemia. This remains stable. 4. Cellulitis. This is followed by the primary care. I would like to thank you for allowing us to follow with this patient. Dictated by ZAINA Harris for Channing Duong MD Face to face encounter, data reviewed, discussed with Nathaly Longo on 10/05/19. I agree with the above assessment and plan of care. cc: ZAINA Harris MD Siddharth Patel, MD [facility]
--- NOTE | 2019-10-05 14:49 | GENERAL SURGERY PROGRESS NOTE ---
DATE: 10/05/2019 SUBJECTIVE: The patient complains of some abdominal crampiness and not much appetite. Her legs feel fine. OBJECTIVE: She is afebrile. Vital signs are stable. Heart rate ranging from 89 to 112. General: She is awake and alert. No acute distress. GI: Soft, nontender, nondistended. Extremities: Her legs are without any significant cellulitis. Minimal edema now. They are dry. Laboratory: CBC and metabolic profile reviewed. ASSESSMENT AND PLAN: A 79-year-old female who was admitted with severe cellulitis of the legs. This has resolved. She has since developed acute kidney injury with now oliguria requiring dialysis. Dr. Duong has requested a tunneled dialysis catheter. I have talked to her about this including the risks and benefits such as bleeding, infection, pneumothorax, deep venous thrombosis, catheter malfunction, and other imponderables. She seems agreeable but wants to talk to her daughter about it. Hopefully, we will get this done tomorrow. cc: MD Tony Hernandez MD
[2019-10-05] MEDS ORDERED: LEVAQUIN PO SCH (20:00)
[2019-10-05] MEDS: SINGULAIR PO SCH (21:30)
--- NOTE | 2019-10-05 23:32 | INFECTIOUS DISEASE PROGRESS NO ---
DATE: 10/05/2019 PRESENT ILLNESS: The patient's leg cellulitis and pneumonia has cleared. She currently is receiving treatment for sphenoid sinusitis. MEDICATIONS: This is day 8 of ceftaroline and day 7 of Levaquin. OBJECTIVE: Vital signs: Temperature is 99 degrees, pulse 90, respirations 14, blood pressure 115/55. Generally this is an ill-appearing elderly female. She is in no acute distress and she is awake today. Head, eyes, ears, nose and throat: She can hear my spoken words and see near objects. She does not have any white coating on her tongue. Neck: No pain with movement.Cardiovascular: Heart rate is irregular. Lungs clear to auscultation. Thorax: The patient has a right-sided Port-A-Cath. The site is not erythematous or purulent. Abdomen soft and nontender. In the patient's right groin, there is a dialysis catheter. That site also is not erythematous or purulent. Neurologic: The patient is awake. She talks in a coherent fashion. There is no tremor. Extremities: Both legs are edematous but they are smaller in size than when she came in, and she does not have any drainage coming from her legs. LABORATORY DATA: CBC today shows a white count of 8440, hemoglobin 8.5, platelet count 63,000. Creatinine is 3, GFR is 15. ASSESSMENT AND PLAN: 1. The patient's pneumonia and cellulitis have cleared. I am going to discontinue ceftaroline and put Levaquin p.o. 250 mg daily for 5 more days to clear up her sinusitis. 2. Comorbidities: The patient is elderly and she is a diabetic. She has gastroesophageal reflux disease and renal failure, for which she is on hemodialysis. I am signing off on the patient's care. As mentioned above, I will change her Levaquin to p.o. 250 mg daily for 5 more days. cc: MD Tony Gudino MD
[2019-10-06] MEDS ORDERED: COREG PO SCH (06:25)
[2019-10-06] MEDS ORDERED: LR 500 ML IV ONE (06:26)
[2019-10-06 06:29] LABS: BASO# 0.01 X1000 (0.0-0.2); BASO% 0.1 % (0.0-0.8); EOS# 0.07 X1000 (0.0-0.7); EOS% 0.5 % (0.0-10.0); IMM GRAN# 0.07 X1000 (0.0-0.04); IMM GRAN% 0.5 % (0.0-0.5); LYMPH# 0.48 X1000 (1.2-3.4); LYMPH% 3.3 % (20.5-51.1); MCH 30.5 PG (27-31); MCHC 30.8 g/dL (33-37); MCV 99.2 FL (81-99); MONO# 0.83 X1000 (0.11-0.59); MONO% 5.6 % (1.7-9.3); MPV 11.3 FL (7.4-10.4); PLT 55 X1000 (130-400); RBC 2.62 XMIL (4.2-5.4); WBC 14.76 X1000 (4.8-10.8)
[2019-10-06] MEDS: HUMULIN R SUBQ SCH (06:38)
[2019-10-06 07:06] LABS: CALCIUM 8.9 mg/dL (8.8-10.2); CREATININE 3.9 mg/dL (0.5-0.9); MAGNESIUM 1.6 mg/dL (1.5-2.7); PHOSPHORUS 4.1 mg/dL (2.7-4.5); POTASSIUM 5.8 mmol/L (3.5-5.1)
[2019-10-06] MEDS ORDERED: HEPARIN IV PRN (07:32)
[2019-10-06] MEDS ORDERED: TIGHT: 0.2 ML/HR FOR DIALYSIS MISC PRN (07:32)
[2019-10-06] MEDS ORDERED: NS 2,000 ML MISC PRN (07:32)
[2019-10-06 07:40] VITALS: BP 95/35
[2019-10-06] MEDS: LANTUS INSULIN SUBQ SCH (08:25)
[2019-10-06] MEDS: MULTAQ PO SCH (08:27)
[2019-10-06] MEDS: VITAMIN B-12 PO SCH (08:27)
[2019-10-06] MEDS: ICAR-C PO SCH (08:27)
[2019-10-06] MEDS: PROTONIX PO SCH (08:27)
[2019-10-06] MEDS: MEGACE LIQUID PO SCH (08:27)
[2019-10-06] MEDS: FOLIC ACID PO SCH (08:31)
[2019-10-06 08:38] LABS: BANDS 14 % (0-1); MONO 2 % (1-9); SEGS 84 % (42-75)
[2019-10-06] MEDS ORDERED: DIPRIVAN 1% ONE (09:15)
--- NOTE | 2019-10-06 09:19 | GENERAL SURGERY PROGRESS NOTE ---
DATE: 10/06/2019 SUBJECTIVE: She has no new complaints. No known events overnight. OBJECTIVE: Vital Signs: She is afebrile. Vital signs are stable. General: She is awake and alert. No acute distress. CV: Regular rate and rhythm. Respiratory: No work of breathing. LABORATORY: White blood cell count 14,000, hemoglobin 8, hematocrit is 26, platelet count 55. Sodium 135, potassium 5.8, chloride 98, CO2 22. BUN 60, creatinine 3.9. ASSESSMENT AND PLAN: A 79-year-old female with acute kidney injury secondary to acute tubular necrosis. We will place a tunneled dialysis catheter today. The patient and family are in agreement. cc: MD Tony Hernandez MD
[2019-10-06] MEDS ORDERED: XYLOCAINE 1%/EPI 1:100,000 ONE (09:40)
[2019-10-06] MEDS ORDERED: NS 250 ML ONE (09:40)
--- NOTE | 2019-10-06 09:40 | PROGRESS NOTE ---
DATE: 10/06/2019 INTERVAL HISTORY: No acute events overnight. 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 Her blood pressure has been on the lower side after dialysis though. In the morning time when I saw her, I ordered 500 mL of intravenous fluid bolus. Her daughter is at bedside. I have been informed that she previously had GI bleed, for which her Pradaxa had been discontinued. SUBJECTIVE: Ms. Burnett is sleeping, but she denies any chest pain, shortness of breath. She occasionally complains of a funny feeling, which is likely because of atrial fibrillation, but she denies any chest discomfort. Abdomen is soft, obese. VITALS: Temperature of 97.7 degrees, pulse 78, respiratory 18, blood pressure 95/35. She is saturating 93% on room air. OBJECTIVE: General: On physical examination, she is not in acute distress. Oral cavity: Moist. Lungs: Air entry bilaterally equal. No wheeze or rhonchi. Mild crackles in the infrascapular region. Cardiovascular: S1, S2 normal. Irregularly irregular. No murmur, rub, or gallop. Abdomen: Obese, soft, nontender. Extremities: She has bilateral lower extremity edema. Her right lower extremity is more swollen than the left. She also has stasis dermatitis of bilateral lower extremity. It is more pronounced on the right side. She also has a right knee effusion. Neurologic: She is alert and oriented x3. Input and output suggests she had a bowel movement. She ate 50% of meals yesterday. LABS: Suggestive of leukocytosis, normocytic anemia. She continues to have mild thrombocytopenia. She does have hyponatremia, hyperkalemia, elevated BUN and creatinine. MICROBIOLOGY: No new data. IMAGING: No new imaging data. ASSESSMENT AND PLAN: 1. Acute kidney injury on chronic kidney disease stage II or stage IIIA, likely because of multiple medical conditions during this hospital, use of Lasix and acute tubular necrosis. She has been on intermittent hemodialysis through right groin catheter. Appreciate Surgery recommendation about changing it to tunneled dialysis catheter today. 2. Bilateral and predominantly right lower extremity cellulitis with poorly healing wounds and pneumonia, now improving. She has been off intravenous ceftaroline. Continue levofloxacin until October 10 according to Infectious Disease recommendations. I will follow up with ultrasound to rule out deep vein thrombosis. 3. Metastatic colon cancer on Vectibix, which has been on hold. The anemia and thrombocytopenia is currently stable, and her heparin-induced thrombocytopenia antibody was negative. Her thrombocytopenia is likely because of her multiple ongoing medical conditions. 4. Essential hypertension. Now she is normotensive to hypotensive. I will put holding parameters on antihypertensive medication and give her intravenous boluses as needed. Her current hypotension is likely because of dialysis that she received yesterday. She has not had any fever or worsening symptoms. I will also remove Chinchilla catheter. 5. Atrial fibrillation, chronic. Continue home dronedarone. She previously had gastrointestinal bleed when using Pradaxa. I am holding aspirin considering she has thrombocytopenia. 6. Others. I will stop intravenous Clinimix as I encouraged her to have oral intake and continue megestrol for poor appetite. Continue physical therapy as tolerated. I am not giving chemical and deep vein thrombosis prophylaxis considering her thrombocytopenia, and continue current dose of insulin glargine and sliding scale for her diabetes mellitus. DISPOSITION: I am anticipating discharge in the next 24 hours once her tunneled dialysis catheter is functional. Plan of care discussed with the patient. Her daughter is at bedside. I discussed with her about patient's pneumonia, cellulitis. I also discussed with her about poor oral intake and need to take oral medication, and I answered all of her questions. cc: Tony Tejeda MD
[2019-10-06] MEDS ORDERED: KETAMINE ONE (09:50)
[2019-10-06] MEDS ORDERED: VERSED ONE (09:52)
[2019-10-06] MEDS ORDERED: ALBUMIN 25% ONE (11:17)
[2019-10-06] MEDS ORDERED: VELTASSA PO SCH (12:00)
--- NOTE | 2019-10-06 12:01 | Diag Imaging Result Doc PS360 ---
EXAM: CHEST-1 VIEW HISTORY: PORT. CHEST IN OR X3 TECHNIQUE: Single view COMPARISON: 10/03/2019 FINDINGS: There is a right sided portacatheter. There is now complete opacification of the right hemithorax. Decreased edema within the left lung vasculature. There is a granuloma in the lower left lung. IMPRESSION: Interval worsening with opacification of the right hemithorax on the current exam. Electronically signed by Clinton Calvillo 10/06/2019 11:58 AM
[2019-10-06] MEDS ORDERED: LEVOPHED 8 MG in D5 1/2 NS 250 ML IV SCH (12:15)
--- NOTE | 2019-10-06 12:19 | Diag Imaging Result Doc PS360 ---
CHEST-1 VIEW - 10/06/2019 11:59 AM INDICATION: PORT. CHEST IN OR, #4 IMAGE COMPARISON: Several chest x-rays from 1120-11:36 AM FINDINGS: Stable endotracheal tube, right chest port, and double right chest tubes. There is continuing improvement in aeration of the right lung with decrease of the right pleural effusion/hemothorax. The left lung remains normally expanded and clear. No pneumothorax. IMPRESSION: Continued improvement from prior with decrease in the right pleural effusion/hemothorax. Electronically signed by Everett Gao 10/06/2019 12:17 PM
[2019-10-06 12:22] LABS: HEMATOCRIT 26.5 % (37.0-47.0); HEMOGLOBIN 8.3 g/dL (12.0-16.0)
[2019-10-06] MEDS ORDERED: EPINEPHRINE SYRINGE ONE (12:46)
[2019-10-06] MEDS ORDERED: PITRESSIN ONE (12:59)
[2019-10-06] MEDS ORDERED: NEO-SYNEPHRINE ONE (13:02)
[2019-10-06] MEDS ORDERED: EPHEDRINE ONE (13:02)
--- NOTE | 2019-10-06 17:37 | NEPHROLOGY PROGRESS NOTE ---
DATE: 10/06/2019 SUBJECTIVE: She is awake, alert, verbal, appropriate. No complaints. OBJECTIVE: Vital Signs: Blood pressure 95/35, heart rate 78, respiration 18, afebrile. General: No acute distress. Skin: Warm and dry. Bruising is unchanged. Neck: Neck veins are not distended. Heart: Regular with a murmur. Lungs: Equal. No crackles. Abdomen: Soft, nontender. Bowel sounds present. Extremities: 1+ edema. IMPRESSION: Acute kidney injury. No recovery. She will have dialysis today after her tunnel catheter is placed. 2K bath. Goal of 3-4 L ultrafiltration as her blood pressure allows. Otherwise, from my perspective, she is ready for rehab placement. cc: MD Tony Larsen MD
[2019-10-06] MEDS ORDERED: EPINEPHRINE SYRINGE IV ONE (18:05)
[2019-10-06] MEDS ORDERED: SODIUM BICARBONATE 8.4% IV ONE (18:05)
--- NOTE | 2019-10-06 20:50 | OPERATIVE NOTE ---
PROCEDURE DATE: 10/06/2019 OPERATIVE NOTE AND SUMMARY: PREOPERATIVE DIAGNOSES: 1. Acute kidney injury. 2. Stage IV colon cancer. 3. Anemia of chronic disease. POSTOPERATIVE DIAGNOSES: 1. Acute kidney injury. 2. Stage IV colon cancer. 3. Anemia of chronic disease. 4. Right hemothorax. 5. Probable mediastinal injury. 6. Respiratory failure and profound hypotension. PROCEDURE PERFORMED: 1. Attempted tunneled dialysis catheter placement. 2. Right chest tube placement x2. 3. Cardiopulmonary resuscitation. SURGEON: Brad Olivarez MD ANESTHESIA: Local MAC followed by general endotracheal intubation. ESTIMATED BLOOD LOSS: 1000 mL. TECHNIQUE: The patient was brought to the operating room and placed supine on the table. IV sedation was induced. Her left neck and chest were prepped and draped in usual sterile fashion. The right internal jugular vein was found with ultrasound. It was compressible, patent without thrombus. The skin over the vein was anesthetized with Marcaine. A small incision was made with a knife. The vein was accessed under ultrasound guidance easily, drawing back dark nonpulsatile blood. The wire passed through the needle. Fluoroscopy showed the wire at the confluence of the innominate vein and superior vena cava and right atrium. With difficulty, I did eventually manipulate the wire down into the right atrium under fluoroscopic guidance. The needle was removed. A counterincision was made below the right clavicle. The catheter was tunneled from this lower incision out through the neck incision. A dilator and sheath were passed over the wire. Inexplicably, the tip of the dilator and sheath appeared to jut more horizontally toward the right hemithorax. The wire and dilator were removed. I passed the catheter through the sheath. The ports did not draw back blood. They would flush with saline. At this point I was concerned about a central vascular injury and possible pleural puncture. I pulled the catheter back along with the wire and tried to manipulate the wire and catheter down into the right atrium; however, in the process of pulling it back and working under fluoroscopy, I eventually pulled the catheter and wire out of the jugular vein. At this point, her vital signs were still stable. I reaccessed the internal jugular vein with the syringe and needle under ultrasound guidance and passed the wire to the confluence of the central vasculature and right atrium. At this point, I was planning to place a catheter over the wire into the superior vena cava innominate confluence and not try to reach the right atrium; however, she became more hypoxic and hypotensive. I pulled out the wire and held pressure on the neck. I closed the neck incision and chest incision with nylon suture. She subsequently lost a pulse. We initiated chest compressions and multiple rounds of epinephrine. The anesthesiologist was in the room and running the code. She regained a pulse. Her blood pressure was over 100 but on Agustin-Synephrine. I went and talked to the family and told them the situation. I told them that I did not think given her overall frailty that she would do well at this time. They wanted us to continue with full code. They were hopeful to have family members come in. I came to the room again. A chest x-ray had been performed, which showed opacification of the right thorax. I therefore placed 2 chest tubes in the right anterior axillary line at the 5th intercostal space. I did obtain dark blood. I did do a finger sweep prior to placing the chest tubes. Initially, there was only about 300 mL of blood out. The chest x-ray revealed good placement of the tubes into the chest cavity. There was some better aeration of the lung superiorly on the right side; however, she continued to be tenuous. I then performed a bronchoscopy. The trachea in the right and left mainstem bronchus as well as the initial branches did not show any significant mucus plugging. There was some concern about a widened mediastinum on her chest x-ray. She lost her pulse again. Chest compressions were initiated again as well as epinephrine. She had several 100 more mL of dark blood come out of the chest tubes during this process. She regained vital signs and was transported to the ICU; however, she subsequently decompensated again and did not respond to any further chest compressions and CPR. She had no blood pressure, pulse, spontaneous movement, respirations, or other signs of life, and she was pronounced at 12:44, and I went to update the family. cc: MD Tony Hernandez MD
--- NOTE | 2019-10-07 13:48 | DISCHARGE SUMMARY ---
ADMISSION DATE: 09/11/2019 DISCHARGE DATE: 10/06/2019 DATE OF : 10/06/2019 CAUSE OF : Hemothorax, acute hypoxic respiratory failure, acute blood loss anemia. HOSPITAL COURSE SUMMARY: Ms. Burnett, a 79 years old lady with history of colorectal carcinoma who was admitted on 09/11/2019 with chief complaints of bilateral lower extremity swelling and was diagnosed with bilateral lower extremity cellulitis. She was being treated with intravenous antibiotics for cellulitis, pneumonia, sinusitis and urine infection and she was improving with intravenous antibiotics. While inside the hospital she also developed acute tubular necrosis after intermittent Lasix use and also related to her multiple comorbidities for which she was started intermittent hemodialysis. She was receiving intermittent hemodialysis through dialysis catheter and she was scheduled to undergo tunneled dialysis catheter placement on 10/06/2019. However, in the OR, she had developed sudden decompensation. She was hypoxic and was found to have right hemothorax and had become pulseless. She was resuscitated in OR with IV phenylephrine, chest compression, chest tubes and bronchoscopy. However, she lost her pulse again and later on was pronounced by the surgery team. Based on the surgeon's note and my discussion with the surgeon, this was likely related to complication during the procedure leading to hemothorax and acute hypoxic respiratory failure. cc: Tony Tejeda MD MTDD
--- NOTE | 2019-10-09 04:43 | DISCHARGE SUMMARY ---
ADMISSION DATE: 09/11/2019 DISCHARGE DATE: DATE OF DISCHARGE: Likely 10/07/2019. This summary is dictated at least 24 hours before discharge. DISCHARGE DISPOSITION: Rehab facility in [place]. DISCHARGE CONDITION: Hemodynamically stable. She is alert and oriented x3. She denies any chest pain or shortness of breath. She is breathing well on room air to nasal cannula. She has been getting intermittent hemodialysis. Her cellulitis, pneumonia and urine infection seem to be improving. She should complete the course of antibiotics. DISCHARGE DIAGNOSES: 1. Bilateral lower extremity cellulitis. 2. Bilateral lower lobe pneumonia. 3. Acute cystitis without hematuria due to Klebsiella pneumoniae. 4. Cellulitis because of Klebsiella and Pseudomonas. 5. Acute tubular necrosis due to multiple medical conditions and use of Lasix requiring intermittent hemodialysis. 6. Essential hypertension and episodes of hypotension related to dialysis. 7. Chronic atrial fibrillation. 8. Poor oral intake requiring intravenous nutrition. 9. Hyperkalemia. 10. Thrombocytopenia. 11. Anemia of chronic disease. 12. Diabetes mellitus with hyperglycemia. OTHER DIAGNOSES: 1. History of metastatic colorectal cancer. 2. Chronic bilateral lower extremity wounds. 3. History of diabetes mellitus. 4. History of essential hypertension. 5. History of chronic atrial fibrillation, not on anticoagulation because of gastrointestinal bleed on Pradaxa. 6. History of chronic venostasis status post antireflux surgery. DISCHARGE MEDICATIONS: 1. Montelukast 10 mg at nighttime. 2. Vitamin B12 1000 mcg daily. 3. Insulin glargine 15 units in the morning time. 4. Carvedilol 6.25 mg b.i.d. Hold if systolic blood pressure is less than 120 or heart rate is less than 60. 5. Fenofibrate 145 mg daily. 6. Folic acid 1 mg daily. 7. Alendronate 70 mg every 7 days. 8. Iron carbonyl ascorbic acid, 1 tablet daily. 9. Multaq 400 mg b.i.d. 10. Pantoprazole 40 mg in the morning time. 11. Diclofenac sodium topical gel as-needed for arthritis pain. 12. Cetirizine 10 mg daily. 13. Insulin human regular sliding scale. 14. Levofloxacin 250 mg every 48 hours for total of 3 tablets, last dose being on October 10. 15. Megestrol 400 mg b.i.d. 16. [place] 10, 1 tablet every 6 hours as needed for pain. 17. Acetaminophen 650 mg every 6 hours as needed for pain. Do not exceed total acetaminophen dose more than 4 g in 24 hour period. 18. Veltassa 8.4 g p.o. b.i.d. 19. Ondansetron 4 mg every 4 to 6 hours as needed for nausea and vomiting. VITALS: At the time of current dictation, temperature 97.7 degrees, pulse 78, respiratory rate 18, blood pressure 95/35, saturating 92% on room air. PHYSICAL EXAMINATION: Not in acute distress. The oral cavity is moist. Air entry bilaterally equal. No wheeze, no rhonchi, no crackles. S1, S2 normal, irregularly irregular. No murmur, rub or gallop. The abdomen is obese, soft, nontender, active bowel sounds. She has mild bilateral lower extremity edema. Cellulitis of right lower extremity is improving. Right lower extremity is slightly larger than left lower extremity. Ultrasound, right lower extremity, has been ordered to rule out DVT. SIGNIFICANT LABORATORIES: At the time of current dictation, WBC 23289, hemoglobin 8, platelet count 55,000. Sodium 135, potassium 5.8, BUN 60, creatinine 3.9. MICROBIOLOGY DURING HOSPITAL ADMISSION: Blood culture drawn on September 11 did not have any growth. Urine culture was growing Klebsiella pneumoniae. Culture from the right leg was growing Klebsiella pneumoniae and Pseudomonas aeruginosa. The patient received 1 unit of packed red blood cells transfusion on September 26. SIGNIFICANT IMAGING DURING THE HOSPITAL ADMISSION: Chest x-ray on September 11 did not have any evidence of acute disease. However, chest x-ray on September 14 had evidence of cardiomegaly and pulmonary edema. Renal ultrasound on September 23 was unremarkable. Abdomen and pelvis CT on September 26 had anasarca, pleural effusion, bibasilar atelectasis and/or pneumonia, constipation. She did not have, however, obstructive uropathy. Chest x-ray on October 03 had congestive heart failure. It was unchanged. Head CT on September 29 did not have any evidence of acute intracranial disease. She did have bilateral sphenoid sinusitis. Electrocardiogram on September 16 had atrial fibrillation. Electrocardiogram on September 24 had atrial fibrillation. PROCEDURES DURING HOSPITAL ADMISSION: On September 27, 2019, the patient underwent insertion of dialysis vascular catheter on the right side groin. HOSPITAL COURSE SUMMARY: Ms. Burnett is a 79-year-old lady with past medical history of metastatic colon cancer, who has been on Vectibix, chronic venous stasis problem with recent reflux surgery, who came in on September 11, 2019 with chief complaints of bilateral lower extremity ulceration, associated erythema and worsening edema. In the emergency room, she was hemodynamically stable but, considering her immunocompromised status and worsening cellulitis, she was admitted for intravenous antibiotics. She does have history of chronic kidney disease stage IIIA and, considering her bilateral lower extremity edema and mild pulmonary congestion, she was started on intravenous Lasix. The ulcer that she had on the right lower extremity, as well as her urine culture, grew organisms and she was started on appropriate antibiotics while inside the hospital. Chest x-ray performed for her shortness of breath had suggested bilateral lower lobe pneumonia, so she was receiving treatment in the form of intravenous ceftaroline and levofloxacin. With antibiotics, her pneumonia, cellulitis, and urine infection improved. At the time of discharge, she should complete the course of levofloxacin for her sinusitis. She also developed worsening kidney failure while inside the hospital. It was thought to be related to use of Lasix, as well as her multiple medical condition contributing to her acute tubular necrosis. Her kidney function did not improve with medical management and her hyperkalemia started getting worse so the Nephrology team was consulted and she was started on intermittent hemodialysis. At the time of this dictation, she is supposed to get a tunneled dialysis catheter to continue intermittent hemodialysis, according to Nephrology's recommendation. The patient did have chronic atrial fibrillation, however, aspirin was held considering her thrombocytopenia. She is pending right lower extremity ultrasound to rule out any DVT. She was advised to continue physical therapy as tolerated. Oncology was on board for her metastatic colorectal cancer. Her Vectibix treatment was on hold until she starts feeling better. More than 30 minutes' time was spent discharging this patient. The plan of care was discussed with the patient and her daughter at bedside. All of their questions have been satisfactorily answered. cc: MD EBENEZER Gooden
--- NOTE | 2019-10-23 11:20 | Extremity Venous Study ---
PROCEDURE NAME: Venous U/S Right Leg - 10/06/2019 STUDY/EQUIPMENT: This is the right lower extremity venous duplex and color flow imaging study using the [employer] vivid E9 ultrasound system with a 9 L-D transducer. REFERRING PHYSICIAN: Dr. Tejeda INDICATIONS: Right lower extremity pain and edema suggestive of deep venous thrombosis. FINDINGS: Right common femoral vein and its branches, deep and superficial femoral veins were satisfactorily imaged. They had flow through them and were compressible. Right popliteal vein and the deep veins below the right knee were all compressible and had flow through them. The superficial veins of the right lower extremity were compressible throughout their length. INTERPRETATION: No evidence of acute deep or superficial venous thrombosis of right lower extremity. cc: MD Tony Tapia MD
== END 2019-10-06 12:44 | disposition expired | DRG 602 ==
LOC: DIRADM 16:31 → 4N 17:07 → ICU 09-27 11:47 → 2N 10-02 18:53 → ICU 10-06 12:06
PROVIDERS: ADMIT Internal Medicine; ATTEND Surgery